=== PATIENT | female | born 1985 | race Hispanic/Latino ===

== ENCOUNTER 2018-03-17 12:46 | Emergency (ER) | payer OTHER, SELFPAY ==
[2018-03-17 14:27] LABS: Absolute Lymphocytes (CBC) 1.9 K/uL (0.7-4.9); Absolute Monocytes 0.6 K/uL (0.1-1.3); Basophils % 1.5 % (0-1.3); Eosinophils % 1.5 % (0-4.4); Hematocrit 39.9 % (36.0-45.0); Lymphocytes % 21.3 % (15.3-44.8); MCH 26.1 pg (27.0-35.0); MCV 80.4 fL (80-100); MPV 8.6 fL (7.6-11.3); Monocytes % 6.7 % (3.3-12.3); RBC Red Blood Cell Count 4.97 M/uL (3.86-4.86)
[2018-03-17 14:32] LABS: Urine Blood NEGATIVE (NEG); Urine Glucose NEGATIVE (NEG); Urine Protein TRACE (NEG)
[2018-03-17 14:33] LABS: Urine Bacteria 20-50 /HPF (<20); Urine RBC <5 /HPF (NONE SEEN)
[2018-03-17 14:34] LABS: Urine Culture Reflex Order NOT NEEDED
[2018-03-17 14:35] LABS: Bicarbonate 28 mEq/L (21-31); Glucose Level 94 mg/dL (65-120); Potassium 3.5 mEq/L (3.6-5.0); Sodium Level 136 mEq/L (135-145)
[2018-03-17 14:41] LABS: ALT/SGPT 44 IU/L (10-60); AST/SGOT 27 IU/L (10-42); Albumin 4.3 g/dL (3.2-5.5); Alkaline Phosphatase 91 IU/L (42-121); Amylase Level 69 U/L (28-100); BUN Blood Urea Nitrogen 9 mg/dL (6-20); Bilirubin Direct 0.1 mg/dL (0-0.2); Bilirubin Total 0.7 mg/dL (0.3-1.2); Protein, Total 7.8 g/dL (6.0-8.3)
[2018-03-17 14:50] LABS: Lipase 18 U/L (22-51)
[2018-03-17] MEDS ORDERED: NA CHLORIDE 0.9% 1,000 ML ONE (15:25)
--- NOTE | 2018-03-17 16:56 | RAD REPORT ---
EXAM DESCRIPTION: US - Transvaginal OB - 03/17/2018 4:35 pm CLINICAL HISTORY: Pelvic pain. COMPARISON: None. FINDINGS: The uterus is normal in size. Two small cystic areas are seen in the fundal endometrium co mpatible with twin gestational sacs. Mean sac diameter yields a gestational age of approximately 5 we eks 0 days. No embryonic components seen. Both ovaries are normal in size, shape and echotexture. The right ovary measures 3.7 x 2.1 x 2.0 cm. The left ovary measures 3.1 x 2.3 x 1.5 cm. No ovarian or parovarian lesions. No adnexal masses. Normal Doppler blood flow was demonstrated to both ovaries. IMPRESSION: Findings of early twin are present. No embryonic components yet visible.Advise followup sonogram in 12-14 days.
--- NOTE | 2018-03-17 16:57 | EDPHYS ---
Physician Documentation [facility] Name: Valarie Mace Age: 32 yrs Sex: Female : 1985 Arrival Date: 03/17/2018 Time: 12:50 Bed 30 Private MD: ED Physician Nathan Viera HPI: 03/17 13:15 This 32 yrs old Female presents to ER via Ambulatory with complaints of cp Nausea/Vomiting, Abdominal Pain. 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 - Social history:: Smoking status: Patient/guardian denies using tobacco. - Ebola Screening: : Patient negative for fever greater than or equal to 101.5 degrees Fahrenheit, and additional compatible Ebola Virus Disease symptoms. ROS: 13:22 Constitutional: Negative for body aches, chills, fever, poor PO intake. cp 13:22 Eyes: Negative for injury, pain, redness, and discharge. cp 13:22 ENT: Negative for drainage from ear(s), ear pain, sore throat, difficulty swallowing, difficulty handling secretions. 13:22 Neck: Negative for pain with movement, pain at rest, stiffness. 13:22 Cardiovascular: Negative for chest pain, edema, palpitations. 13:22 Respiratory: Negative for cough, shortness of breath, wheezing. 13:22 Abdomen/GI: Positive for abdominal pain, nausea, vomiting, Negative for diarrhea, constipation, anorexia, black/tarry stool, rectal bleeding. 13:22 Back: Negative for pain at rest, pain with movement, radiated pain. 13:22 : Negative for urinary symptoms, vaginal bleeding, vaginal discharge. 13:22 Skin: Negative for cellulitis, rash. 13:22 Neuro: Positive for dizziness, headache, Negative for altered mental status, syncope, near syncope, weakness. 13:22 All other systems are negative. Exam: 13:25 Constitutional: The patient appears in no acute distress, alert, awake, non-toxic, well cp developed, well nourished. 13:25 Head/Face: Normocephalic, atraumatic. Eyes: Pupils equal round and reactive to light, cp extra-ocular motions intact. Lids and lashes normal. Conjunctiva and sclera are non-icteric and not injected. Cornea within normal limits. Periorbital areas with no swelling, redness, or edema. ENT: Nares patent. No nasal discharge, no septal abnormalities noted. Tympanic membranes are normal and external auditory canals are clear. Oropharynx with no redness, swelling, or masses, exudates, or evidence of obstruction, uvula midline. Mucous membranes moist. Neck: Trachea midline, no thyromegaly or masses palpated, and no cervical lymphadenopathy. Supple, full range of motion without nuchal rigidity, or vertebral point tenderness. No Meningismus. Chest/axilla: Normal chest wall appearance and motion. Nontender with no deformity. No lesions are appreciated. 13:25 Cardiovascular: Rate: tachycardic, Rhythm: regular, Pulses: Pulses are 2+ in right radial artery and left radial artery. Edema: is not appreciated, JVD: is not appreciated. 13:25 Respiratory: the patient does not display signs of respiratory distress, Respirations: normal, no use of accessory muscles, no retractions, no splinting, no tachypnea, labored breathing, is not present, Breath sounds: are clear throughout, no decreased breath sounds, no stridor, no wheezing. 13:25 Abdomen/GI: Inspection: abdomen appears normal, Bowel sounds: active, all quadrants, Palpation: soft, in all quadrants, mild abdominal tenderness, in the right lower quadrant, rebound tenderness, is not appreciated, voluntary guarding, is not appreciated, involuntary guarding, is not appreciated. 13:25 Back: pain, is absent, ROM is normal. 13:25 Skin: cellulitis, is not appreciated, no rash present. 13:25 Neuro: Orientation: to person, place \T\ time. Mentation: lucid, able to follow commands, Cerebellar function: is grossly normal, Motor: moves all fours, strength is normal, Sensation: no obvious gross deficits, Gait: is steady, at a normal pace, without difficulty. Vital Signs: 12:57 BP 144 / 84; Pulse 110; Resp 19; Temp 97.9; Pulse Ox 99% on R/A; Weight 97.52 kg; aj Height 5 ft. 4 in. (162.56 cm); 15:30 BP 136 / 77; Pulse 77; Resp 17; Temp 97.5; Pulse Ox 99% ; Pain 7/10; rs2 17:29 BP 139 / 81; Pulse 89; Resp 16; Temp 97.2; Pulse Ox 100% ; Pain 0/10; rs2 12:57 Body Mass Index 36.90 (97.52 kg, 162.56 cm) aj MDM: 13:09 Patient medically screened. 16:55 Data reviewed: vital signs, nurses notes, lab test result(s), radiologic studies, cp ultrasound. 16:55 Counseling: I had a detailed discussion with the patient and/or guardian regarding: the cp historical points, exam findings, and any diagnostic results supporting the discharge/admit diagnosis, lab results, radiology results, the need for outpatient follow up, an OB/Gyne specialist, to return to the emergency department if symptoms worsen or persist or if there are any questions or concerns that arise at home. 03/17 13:31 Order name: Amylase, Serum; Complete Time: 14:57 03/17 13:31 Order name: Basic Metabolic Panel; Complete Time: 14:57 03/17 14:57 Interpretation: Normal except: K 3.5. 03/17 13:31 Order name: CBC with Diff; Complete Time: 14:57 03/17 14:57 Interpretation: Normal except: RBC 4.97; MCV 80.4; MCH 26.1; BASO% 1.5. 03/17 13:31 Order name: Creatinine for Radiology; Complete Time: 14:57 03/17 13:31 Order name: Hepatic Function; Complete Time: 14:57 03/17 15:24 Interpretation: Reviewed. 03/17 13:31 Order name: Lipase; Complete Time: 14:57 03/17 13:31 Order name: Urine Microscopic Only; Complete Time: 14:57 03/17 14:57 Interpretation: Normal except: UWBC 10-20; UBACT 20-50; SQEPI 20-50. 03/17 14:16 Order name: Beta hcg; Complete Time: 15:51 03/17 15:52 Interpretation: HCGQ 2703.0; Reviewed. 03/17 14:24 Order name: Urine Dipstick--Ancillary (enter results); Complete Time: 14:57 em1 05/23 14:24 Order name: Urine --Ancillary (enter results); Complete Time: 14:57 em1 03/17 15:52 Order name: US Transvaginal Ob; Complete Time: 16:58 cp 03/17 13:11 Order name: Urine Test (obtain specimen); Complete Time: 14:42 cp 03/17 13:11 Order name: Urine Dipstick-Ancillary (obtain specimen); Complete Time: 14:42 cp 03/17 13:31 Order name: IV Saline Lock; Complete Time: 14:42 cp 03/17 13:31 Order name: Labs collected and sent; Complete Time: 14:42 cp Administered Medications: 14:18 CANCELLED (Physician Discretion): Meclizine 25 mg PO once cp 14:42 Drug: Zofran 4 mg Route: IVP; Site: right antecubital; rs2 15:31 Follow up: Response: No adverse reaction; Nausea is decreased rs2 15:29 Drug: NS 0.9% 1000 ml Route: IV; Rate: 1 bolus; Site: right antecubital; rs2 17:14 Follow up: IV Status: Completed infusion; IV Intake: 1000ml rs2 Disposition: 03/17/18 16:56 Discharged to Home. Impression: related conditions, unspecified, first trimester, Nausea and vomiting, Dizziness, Lower abdominal pain, unspecified. - Condition is Stable. - Discharge Instructions: Abdominal Pain During , Nausea and Vomiting. - Prescriptions for Diclegis 10- 10 mg Oral tablet,delayed release (DR/EC) - take 1 tablet by ORAL route as directed As needed prior to meals and 2 tablets at bedtime; 30 tablet. Vitamin 27- 0.8 mg Oral Tablet - take 1 tablet by ORAL route once daily; 60 tablet. - Medication Reconciliation Form, Thank You Letter, Antibiotic Education, Prescription Opioid Use form. - Follow up: Jyothi Oshea MD; When: 1 week; Reason: Recheck today's complaints. - Problem is new. - Symptoms have improved. Addendum: 03/23/2018 19:24 Co-signature as Attending Physician, Nathan Viera MD. r n Signatures: Dispatcher [employer] EDTaylor Grande RN RN aj Nieto, Roman, MD MD rn Page, Corey, PA PA cp Seth, Rhonda rs2 Corrections: (The following items were deleted from the chart) 03/17 14:18 13:31 Meclizine 25 mg PO once ordered. cp cp 17:31 16:56 03/17/2018 16:56 Discharged to Home. Impression: related conditions, rs2 unspecified, first trimester; Nausea and vomiting; Dizziness; Lower abdominal pain, unspecified. Condition is Stable. Forms are Medication Reconciliation Form, Thank You Letter, Antibiotic Education, Prescription Opioid Use. Follow up: Jyothi Oshea; When: 1 week; Reason: Recheck today's complaints. Problem is new. Symptoms have improved. cp
--- NOTE | 2018-03-17 16:57 | ER ---
Nurse's Notes [facility] Name: Valarie Mace Age: 32 yrs Sex: Female : 1985 Arrival Date: 03/17/2018 Time: 12:50 Bed 30 Private MD: Diagnosis: related conditions, unspecified, first trimester;Nausea and vomiting;Dizziness;Lower abdominal pain, unspecified Presentation: 03/17 12:56 Presenting complaint: Patient states: Nausea with a few episodes of vomiting with aj migraine headache that started a few days ago. Patient reports negative test. Transition of care: patient was not received from another setting of care. Onset of symptoms was March 17, 2018. Care prior to arrival: None. 12:56 Method Of Arrival: Ambulatory aj 12:56 Acuity: MIRA 3 aj 13:53 Risk Assessment: Do you want to hurt yourself or someone else? Patient reports no rs2 desire to harm self or others. Initial Sepsis Screen: Does the patient meet any 2 criteria? No. Patient's initial sepsis screen is negative. Does the patient have a suspected source of infection? No. Patient's initial sepsis screen is negative. Triage Assessment: 12:57 General: Appears in no apparent distress. comfortable, Behavior is calm, cooperative, aj appropriate for age. Pain: Complains of pain in right inguinal area. Neuro: Level of Consciousness is awake, alert, obeys commands, Oriented to person, place, time, situation, Appropriate for age. Respiratory: Airway is patent Respiratory effort is even, unlabored, Respiratory pattern is regular, symmetrical. GI: Reports nausea. GI: Reports. : Reports pain in right in suprapubic area. Derm: Skin is intact, is healthy with good turgor, Skin is pink, warm \T\ dry. normal. 12:59 Neuro: Reports headache. 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 - Social history:: Smoking status: Patient/guardian denies using tobacco. - Ebola Screening: : Patient negative for fever greater than or equal to 101.5 degrees Fahrenheit, and additional compatible Ebola Virus Disease symptoms. Screenin:48 Abuse screen: Denies threats or abuse. Nutritional screening: No deficits noted. rs2 Tuberculosis screening: No symptoms or risk factors identified. Fall Risk None identified. Assessment: 13:48 General: Appears in no apparent distress. obese, well groomed, Behavior is calm, rs2 cooperative, appropriate for age. Pain: Complains of pain in right lower quadrant. Neuro: No deficits noted. Cardiovascular: No deficits noted. Respiratory: No deficits noted. Reports. GI: Abdomen is tender to palpation in right lower quadrant Reports nausea, Pt reports RLQ pressure intermittently for several weeks with nausea for 1 week and occasional vomiting. Pt denies vomiting today. Pt denies dysuria. Pt reports normal BM today. : No deficits noted. EENT: Reports nasal congestion. 15:30 Reassessment: No changes from previously documented assessment. Patient states feeling rs2 better. Patient states symptoms have improved. Vital Signs: 12:57 BP 144 / 84; Pulse 110; Resp 19; Temp 97.9; Pulse Ox 99% on R/A; Weight 97.52 kg; aj Height 5 ft. 4 in. (162.56 cm); 15:30 BP 136 / 77; Pulse 77; Resp 17; Temp 97.5; Pulse Ox 99% ; Pain 7/10; rs2 17:29 BP 139 / 81; Pulse 89; Resp 16; Temp 97.2; Pulse Ox 100% ; Pain 0/10; rs2 12:57 Body Mass Index 36.90 (97.52 kg, 162.56 cm) ED Course: 12:50 Patient arrived in ED. sb2 12:57 Triage completed. aj 12:57 Arm band placed on left wrist. Patient placed in an exam room. aj 13:09 Jose Rao PA is PHCP. cp 13:09 Nathan Viera MD is Attending Physician. cp 13:47 Jazmyn Curry is Primary Nurse. rs2 13:48 Patient has correct armband on for positive identification. Bed in low position. Call rs2 light in reach. Side rails up X 1. Door closed. Noise minimized. 16:14 Patient taken to ultrasound. lc3 16:27 US Transvaginal Ob In Process Unspecified. EDMS 16:54 Jyothi Oshea MD is Referral Physician. cp 17:14 No provider procedures requiring assistance completed. Inserted saline lock: 20 gauge rs2 in right antecubital area, using aseptic technique. 17:14 IV discontinued, intact, bleeding controlled, No redness/swelling at site. Pressure rs2 dressing applied. Administered Medications: 14:18 CANCELLED (Physician Discretion): Meclizine 25 mg PO once cp 14:42 Drug: Zofran 4 mg Route: IVP; Site: right antecubital; rs2 15:31 Follow up: Response: No adverse reaction; Nausea is decreased rs2 15:29 Drug: NS 0.9% 1000 ml Route: IV; Rate: 1 bolus; Site: right antecubital; rs2 17:14 Follow up: IV Status: Completed infusion; IV Intake: 1000ml rs2 Intake: 17:14 IV: 1000ml; Total: 1000ml. rs2 Outcome: 16:56 Discharge ordered by MD. cp 17:30 Discharged to home ambulatory, with friend. rs2 17:30 Condition: improved 17:30 Discharge instructions given to patient, Instructed on discharge instructions, follow up and referral plans. Demonstrated understanding of instructions, follow-up care, medications, Prescriptions given X 2. 17:31 Patient left the ED. rs2 Signatures: Dispatcher [employer] EDMS Taylor Alex RN RN aj Page, Corey, PA PA Tito Brannon Rhonda rs2 Nataly Kapoor sb2 Corrections: (The following items were deleted from the chart) 12:59 12:56 Presenting complaint: Patient states: Nausea with a few episodes of vomiting. aj Patient reports negative test meghann
== END 2018-03-17 17:31 | disposition home or self-care (01) ==
LOC: ER 12:46
DX: O26.91 Pregnancy related conditions, unspecified, first trimester (principal)
CPT/HCPCS: 36415; 76817; 80048; 80076; 81003; 81015; 81025; 82150; 83690; 84702; 85025; 96361; 96374; 99284; J7030

== ENCOUNTER 2018-05-26 17:29 | Emergency (ER) | payer OTHER ==
[2018-05-26 18:37] LABS: Urine Blood NEGATIVE (NEG); Urine Glucose NEGATIVE (NEG); Urine Protein 1+ (NEG)
[2018-05-26 18:40] LABS: Calcium Oxalate Crystals- Ur FEW (NONE SEEN); Urine Bacteria 20-50 /HPF (<20); Urine Culture Reflex Order NOT NEEDED; Urine RBC <5 /HPF (NONE SEEN)
--- NOTE | 2018-05-26 18:53 | RAD REPORT ---
EXAM DESCRIPTION: US - OB Limited - 05/26/2018 6:21 pm CLINICAL HISTORY: with abdominal pain COMPARISON: March 2018 FINDINGS: Limited sonographic evaluation was performed to assess viability, placenta and amnio tic fluid The cervix measures 3.7 centimeters. The amniotic fluid is within normal limits. The placenta is anterior. A subchorionic/retroplacental bleed is not seen. Cardiac activity 143 beats per minute. Evaluation of the maternal right adnexae is unremarkable. The right ovary was not seen. A tubular structure is present within the maternal left adnexa. IMPRESSION: A tubular structure within the maternal left at adnexa may represent a dilated fallopian tube or ureter. Otherwise unremarkable limited OB ultrasound as described above
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
--- NOTE | 2018-05-26 19:20 | EDPHYS ---
Physician Documentation [facility] Name: Valarie Mace Age: 32 yrs Sex: Female : 1985 Arrival Date: 05/26/2018 Time: 17:32 Bed 26 Private MD: CLAUDIA APONTE ED Physician Jose Matthews HPI: 05/26 18:29 This 32 yrs old Female presents to ER via Ambulatory with complaints of snw Abdominal Pain. 18:29 The patient presents with abdominal pain left lower quad, left groin. Onset: The snw symptoms/episode began/occurred suddenly. The symptoms do not radiate. Associated signs and symptoms: none. The symptoms are described as shooting. Severity of pain: At its worst the pain was moderate severe. The patient has not experienced similar symptoms in the past. appt with Ob next week. 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 - Social history:: Smoking status: Patient/guardian denies using tobacco. - Ebola Screening: : Patient denies exposure to infectious person Patient denies travel to an Ebola-affected area in the 21 days before illness onset. ROS: 17:57 Constitutional: Negative for fever, chills, and weight loss, Eyes: Negative for injury, snw pain, redness, and discharge, ENT: Negative for injury, pain, and discharge, Neck: Negative for injury, pain, and swelling, Cardiovascular: Negative for chest pain, palpitations, and edema, Respiratory: Negative for shortness of breath, cough, wheezing, and pleuritic chest pain, Back: Negative for injury and pain, : Negative for injury, bleeding, discharge, and swelling, MS/Extremity: Negative for injury and deformity, Skin: Negative for injury, rash, and discoloration, Neuro: Negative for headache, weakness, numbness, tingling, and seizure. 17:57 Abdomen/GI: Positive for lower left groin pain that felt like a kick in the groin with then constant pain, concerned second to state. Exam: 17:57 Constitutional: This is a well developed, well nourished patient who is awake, alert, snw and in no acute distress. Head/Face: Normocephalic, atraumatic. Eyes: Pupils equal round and reactive to light, extra-ocular motions intact. Lids and lashes normal. Conjunctiva and sclera are non-icteric and not injected. Cornea within normal limits. Periorbital areas with no swelling, redness, or edema. ENT: Nares patent. No nasal discharge, no septal abnormalities noted. Tympanic membranes are normal and external auditory canals are clear. Oropharynx with no redness, swelling, or masses, exudates, or evidence of obstruction, uvula midline. Mucous membranes moist. Neck: Trachea midline, no thyromegaly or masses palpated, and no cervical lymphadenopathy. Supple, full range of motion without nuchal rigidity, or vertebral point tenderness. No Meningismus. Chest/axilla: Normal chest wall appearance and motion. Nontender with no deformity. No lesions are appreciated. Cardiovascular: Regular rate and rhythm with a normal S1 and S2. No gallops, murmurs, or rubs. Normal PMI, no JVD. No pulse deficits. Respiratory: Lungs have equal breath sounds bilaterally, clear to auscultation and percussion. No rales, rhonchi or wheezes noted. No increased work of breathing, no retractions or nasal flaring. Abdomen/GI: Soft, non-tender, with normal bowel sounds. No distension or tympany. No guarding or rebound. No evidence of tenderness throughout. Back: No spinal tenderness. No costovertebral tenderness. Full range of motion. Skin: Warm, dry with normal turgor. Normal color with no rashes, no lesions, and no evidence of cellulitis. Neuro: Awake and alert, GCS 15, oriented to person, place, time, and situation. Cranial nerves II-XII grossly intact. Motor strength 5/5 in all extremities. Sensory grossly intact. Cerebellar exam normal. Normal gait. Psych: Awake, alert, with orientation to person, place and time. Behavior, mood, and affect are within normal limits. 17:57 Musculoskeletal/extremity: left groin pain that started while standing, no diff with range of motion. Vital Signs: 17:41 BP 133 / 90; Pulse 103; Resp 18; Pulse Ox 97% on R/A; Weight 102.06 kg (R); Height 5 tw2 ft. 4 in. (162.56 cm); Pain 6/10; 17:42 Temp 98.7(O); tw2 18:09 BP 114 / 76; Pulse 105; Resp 17; Pulse Ox 100% on R/A; tw2 18:30 BP 116 / 69; Pulse 98; Resp 17; Pulse Ox 99% on R/A; tw2 19:30 BP 108 / 71; Pulse 88; Resp 16; Pulse Ox 100% on R/A; Pain 4/10; lp1 17:41 Body Mass Index 38.62 (102.06 kg, 162.56 cm) tw2 MDM: 17:41 Patient medically screened. snw 19:22 Data reviewed: vital signs, nurses notes. Data interpreted: Pulse oximetry: on room air snw is 99 %. Interpretation: normal. Counseling: I had a detailed discussion with the patient and/or guardian regarding: the historical points, exam findings, and any diagnostic results supporting the discharge/admit diagnosis, lab results, radiology results. 05/26 17:44 Order name: Urine Culture snw 05/26 17:44 Order name: Urine Microscopic Only; Complete Time: 18:51 snw 05/26 17:44 Order name: Urine Dipstick-Ancillary (obtain specimen); Complete Time: 17:54 snw 05/26 17:44 Order name: US OB Limited; Complete Time: 18:58 snw 05/26 18:08 Order name: Urine Dipstick--Ancillary (enter results); Complete Time: 18:51 eb Administered Medications: No medications were administered Disposition: 05/27 06:48 Co-signature as Attending Physician, Jose Matthews MD I agree with the assessment and elsa plan of care. Disposition: 05/26/18 19:20 Discharged to Home. Impression: state, Lower abdominal pain, unspecified. - Condition is Stable. - Discharge Instructions: Abdominal Pain During , Pelvic Rest, Second Trimester of , [id number]. - Work release form, Medication Reconciliation Form, Thank You Letter, Antibiotic Education, Prescription Opioid Use form. - Follow up: Emergency Department; When: As needed; Reason: Worsening of condition. Follow up: Private Physician; When: 2 - 3 days; Reason: Recheck today's complaints, Continuance of care. Signatures: Dispatcher [employer] EDJose Healy MD MD cha Therrien, Shelly, CARD DOFFER-C CARD DOFFER-Csnw Azra Vieira, RN RN lp1 Vivien Navarro RN RN tw2 Corrections: (The following items were deleted from the chart) 05/26 19:45 19:20 05/26/2018 19:20 Discharged to Home. Impression: state; Lower abdominal lp1 pain, unspecified. Condition is Stable. Forms are Medication Reconciliation Form, Thank You Letter, Antibiotic Education, Prescription Opioid Use. Follow up: Emergency Department; When: As needed; Reason: Worsening of condition. Follow up: Private Physician; When: 2 - 3 days; Reason: Recheck today's complaints, Continuance of care. snw
== END 2018-05-26 19:45 | disposition home or self-care (01) ==
LOC: ER 17:29
DX: R10.30 Lower abdominal pain, unspecified (principal); Z88.0 Allergy status to penicillin; Z88.1 Allergy status to other antibiotic agents
CPT/HCPCS: 76815; 81003; 81015; 87086; 87088; 99284

== ENCOUNTER 2019-05-17 17:01 | Inpatient (IN) | payer MEDICAID, OTHER, SELFPAY ==
--- OUTSIDE RECORDS SUMMARY | 2019-05-17 17:07 | XMS REPORT ---
:1985 [facility] Address [address] [place] [address] Care Team Providers Name Role Phone Unavailable Unavailable Unavailable Problems This patient has no known problems. Allergies, Adverse Reactions, Alerts This patient has no known allergies or adverse reactions. Medications This patient has no known medications.
[2019-05-17 17:48] LABS: Absolute Lymphocytes (CBC) 1.3 K/uL (0.7-4.9); Basophils % 0.6 % (0-1.3); Hematocrit 49.3 % (36.0-45.0); MPV 10.4 fL (7.6-11.3); RBC Red Blood Cell Count 5.49 M/uL (3.86-4.86)
[2019-05-17 17:59] LABS: Urine Blood 1+ (NEG); Urine Glucose 2+ (NEG); Urine Protein 2+ (NEG)
[2019-05-17] MEDS ORDERED: INSULIN -REGULAR HUMAN 50 UNIT/0.5 ML ML ONE ×2 (18:01→19:58)
[2019-05-17] MEDS ORDERED: NA CHLORIDE 0.9% 1,000 ML ONE ×3 (18:01→19:19)
[2019-05-17 18:06] LABS: ALT/SGPT 40 U/L (12-78); AST/SGOT 12 U/L (15-37); Albumin 4.3 g/dL (3.4-5.0); Alkaline Phosphatase 130 U/L (45-117); BUN Blood Urea Nitrogen 15 mg/dL (7-18); Bicarbonate 21 mmol/L (21-32); Bilirubin Direct 0.2 mg/dL (0-0.2); Bilirubin Total 0.9 mg/dL (0.2-1.0); Lipase 173 U/L (73-393); Magnesium 2.7 mg/dL (1.8-2.4); Potassium 3.7 mmol/L (3.5-5.1); Protein, Total 8.1 g/dL (6.4-8.2); Sodium Level 134 mmol/L (136-145)
[2019-05-17 18:13] LABS: Glucose Level 627 mg/dL (74-106)
[2019-05-17 19:01] LABS: Urine Bacteria <20 /HPF (<20); Urine Culture Reflex Order NOT NEEDED; Urine RBC <5 /HPF (NONE SEEN)
--- NOTE | 2019-05-17 19:39 | ER ---
Nurse's Notes [facility] Name: Valarie Mace Age: 33 yrs Sex: Female : 1985 Arrival Date: 05/17/2019 Time: 17:13 Bed 17 Private MD: Diagnosis: Diabetes mellitus due to underlying condition with ketoacidosis Presentation: 05/17 17:15 Presenting complaint: Patient states: Frequent urination, dry mouth, increased thirst, aj for 1 week. Patient denies HX of diabetes. Ketones noted on breath. Transition of care: patient was not received from another setting of care. Onset of symptoms was May 10, 2019. Risk Assessment: Do you want to hurt yourself or someone else? Patient reports no desire to harm self or others. Initial Sepsis Screen: Does the patient meet any 2 criteria? No. Patient's initial sepsis screen is negative. Does the patient have a suspected source of infection? No. Patient's initial sepsis screen is negative. Care prior to arrival: None. 17:15 Method Of Arrival: Ambulatory 17:15 Acuity: MIRA 3 aj 19:00 Acuity: MIRA 2 iw Triage Assessment: 17:17 General: Appears in no apparent distress. uncomfortable, Behavior is calm, cooperative, aj appropriate for age. General: Smells of ketones. Pain: Denies pain. Neuro: Level of Consciousness is awake, alert, obeys commands, Oriented to person, place, time, situation, Appropriate for age. Respiratory: Airway is patent Respiratory effort is even, unlabored, Respiratory pattern is regular, symmetrical. GI: Abdomen is obese, Reports nausea. : Reports urinary frequency. Derm: Skin is intact, is healthy with good turgor, Skin is pink, warm \T\ dry. normal. 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 - Social history:: Smoking status: Patient/guardian denies using tobacco. - Ebola Screening: : Patient negative for fever greater than or equal to 101.5 degrees Fahrenheit, and additional compatible Ebola Virus Disease symptoms Patient denies exposure to infectious person Patient denies travel to an Ebola-affected area in the 21 days before illness onset No symptoms or risks identified at this time. Screenin:15 Abuse screen: Denies threats or abuse. Nutritional screening: No deficits noted. ae4 Tuberculosis screening: No symptoms or risk factors identified. Fall Risk None identified. Assessment: 17:18 General: Appears uncomfortable, obese, Behavior is cooperative, appropriate for age, ae4 anxious, restless. General: Smells of ketones, Patient reports excessive thirst. . Pain: Denies pain. Neuro: Level of Consciousness is awake, alert, obeys commands, Oriented to person, place, time, situation, Appropriate for age. Cardiovascular: Heart tones S1 S2 warm and mildly diaphoretic. Rhythm is regular. Respiratory: Airway is patent Respiratory effort is even, unlabored, shallow, Respiratory pattern is regular, symmetrical, Breath sounds are clear bilaterally. GI: Abdomen is round obese, Bowel sounds present X 4 quads. : No signs and/or symptoms were reported regarding the genitourinary system. : Reports Increased frequency of urination. EENT: wears glasses. Derm: Skin is pale. Musculoskeletal: Reports Generalized weakness. 17:41 Reassessment: Respiratory therapist at bedside obtaining ABG. ae4 19:34 Reassessment: Patient appears in no apparent distress at this time. Patient and/or ae4 family updated on plan of care and expected duration. Pain level reassessed. Patient denies pain at this time. Patient states feeling better. Patient states symptoms have improved. 20:00 Reassessment: Patient appears in no apparent distress at this time. Patient and/or jb4 family updated on plan of care and expected duration. Pain level reassessed. Patient is alert, oriented x 3, equal unlabored respirations, skin warm/dry/pink. report called to RICHARD Pate. Vital Signs: 17:17 BP 149 / 103; Pulse 123; Resp 18; Temp 97.4; Pulse Ox 99% on R/A; Weight 108.86 kg; aj Height 5 ft. 4 in. (162.56 cm); 18:21 BP 137 / 104; Pulse 128; Resp 15; Pulse Ox 98% on R/A; ae4 20:00 BP 141 / 98; Pulse 110; Resp 19; Temp 98.4(O); Pulse Ox 100% on R/A; jb4 17:17 Body Mass Index 41.20 (108.86 kg, 162.56 cm) ED Course: 17:13 Patient arrived in ED. as 17:16 Triage completed. aj 17:17 Arm band placed on left wrist. aj 17:19 Jose Rao PA is PHCP. cp 17:19 Jose Matthews MD is Attending Physician. cp 17:19 Dmitry Godfrey, RICHARD is Primary Nurse. ae4 17:45 Patient has correct armband on for positive identification. Placed in gown. Bed in low mh5 position. Call light in reach. Side rails up X 1. Warm blanket given. sewer pipe offbearer on. Pulse ox on. NIBP on. 17:45 Urine collected: clean catch specimen, clear. mh5 17:47 Ketone, Serum Sent. mh5 17:47 Magnesium Sent. mh5 17:47 Basic Metabolic Panel Sent. mh5 17:47 CBC with Diff Sent. mh5 17:47 Creatinine for Radiology Sent. mh5 17:47 Hepatic Function Sent. mh5 17:48 Lipase Sent. mh5 17:48 Urine Culture Sent. mh5 17:48 Urine Microscopic Only Sent. mh5 19:38 Jay Reed DO is Hospitalizing Provider. cp 19:52 Inserted saline lock: 20 gauge in left antecubital area, using aseptic technique. ae4 20:35 No provider procedures requiring assistance completed. Patient admitted, IV remains in jb4 place. Administered Medications: 17:45 Drug: NS 0.9% 1000 ml Route: IV; Rate: 1 bolus; Site: right antecubital; ae4 19:15 Follow up: IV Status: Completed infusion; IV Intake: 1000ml jb4 17:45 Drug: Insulin Regular Human 10 units {Co-Signature: rb1 (Cherie Chavarria RN).} Route: ae4 IVP; Site: right antecubital; 19:02 Follow up: Response: Temperature is decreased; FSBS 399 ae4 18:35 Drug: NS 0.9% 1000 ml Route: IV; Rate: 1 bolus; Site: right antecubital; ae4 20:35 Follow up: IV Status: Completed infusion; IV Intake: 1000ml jb4 19:55 Drug: NS 0.9% 1000 ml Route: IV; Rate: 1 bolus; Site: left antecubital; jb4 20:35 Follow up: Response: No adverse reaction; IV Status: Infusion continued upon admission; jb4 IV Intake: 500ml 19:55 Drug: Insulin Drip - (Insulin Regular Human 100 units, NS 0.9% 100 ml) {Co-Signature: jb4 ae4 (Dmitry Godfrey RN).} Route: IV; Rate: 10 units/hr; Site: left antecubital; 20:35 Follow up: Response: No adverse reaction; IV Status: Infusion continued upon admission jb4 Point of Care Testing: Blood Glucose: 17:22 Blood Glucose: High (>450 mg/dL); iw 18:42 Blood Glucose: 399 mg/dL; ae4 19:57 Blood Glucose: 363 mg/dL; jb4 17:22 Nurse notified of high sugar reading and need for lab follow up iw Ranges: Intake: 19:15 IV: 1000ml; Total: 1000ml. jb4 20:35 IV: 500ml; Total: 1500ml. jb4 20:35 IV: 1000ml; Total: 2500ml. jb4 Outcome: 19:39 Decision to Hospitalize by Provider. cp 20:35 Admitted to ICU accompanied by nurse, accompanied by tech, via stretcher, room 8, on jb4 monitor, with chart, Report called to RICHARD Pate 20:35 Condition: improved 20:35 Discharge instructions given to patient, family, Instructed on the need for admit, Demonstrated understanding of instructions. 20:47 Patient left the ED. ak1 Signatures: Taylor Alex RN RN aj Martinez, Amelia as Williams, Irene, RN RN iw Krenek, Amber, RN RN ak1 Jose Rao PA PA cp Bryson, James, RN RN jb4 Martinez, Maria mh5 Elliott, Andrea, RN RN ae4 Cherie Godfrey RN, ae4
--- NOTE | 2019-05-17 19:40 | EDPHYS ---
Physician Documentation [facility] Name: Valarie Mace Age: 33 yrs Sex: Female : 1985 Arrival Date: 05/17/2019 Time: 17:13 Bed 17 Private MD: ED Physician Jose Matthews HPI: 05/17 17:30 This 33 yrs old Female presents to ER via Ambulatory with complaints of cp Nausea/Vomiting, Dizziness. 17:30 The patient presents to the emergency department with nausea, that is mild. Onset: The cp symptoms/episode began/occurred 1 week(s) ago. Associated signs and symptoms: Pertinent positives: dizziness, Pertinent negatives: abdominal pain, diarrhea, fever, vomiting. Severity of symptoms: in the emergency department the symptoms are unchanged despite home interventions. 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 - Social history:: Smoking status: Patient/guardian denies using tobacco. - Ebola Screening: : Patient negative for fever greater than or equal to 101.5 degrees Fahrenheit, and additional compatible Ebola Virus Disease symptoms Patient denies exposure to infectious person Patient denies travel to an Ebola-affected area in the 21 days before illness onset No symptoms or risks identified at this time. ROS: 17:35 Constitutional: Negative for body aches, chills, fever, poor PO intake. cp 17:35 Eyes: Negative for injury, pain, redness, and discharge. cp 17:35 ENT: Negative for drainage from ear(s), ear pain, sore throat, difficulty swallowing, difficulty handling secretions. 17:35 Cardiovascular: Negative for chest pain, palpitations. 17:35 Respiratory: Negative for cough, shortness of breath, wheezing. 17:35 Abdomen/GI: Positive for nausea, Negative for abdominal pain, diarrhea, constipation, black/tarry stool, rectal bleeding, active vomiting. 17:35 Back: Negative for pain at rest, pain with movement. 17:35 : Positive for urinary frequency, Negative for flank pain, burning with urination, difficulty urinating. 17:35 Neuro: Positive for dizziness, Negative for altered mental status, weakness. 17:35 All other systems are negative. Exam: 17:45 Constitutional: The patient appears in no acute distress, alert, awake, cp non-diaphoretic, non-toxic, well developed, well nourished. 17:45 Head/Face: Normocephalic, atraumatic. Eyes: Pupils equal round and reactive to light, cp extra-ocular motions intact. Lids and lashes normal. Conjunctiva and sclera are non-icteric and not injected. Cornea within normal limits. Periorbital areas with no swelling, redness, or edema. ENT: Nares patent. No nasal discharge, no septal abnormalities noted. Tympanic membranes are normal and external auditory canals are clear. Oropharynx with no redness, swelling, or masses, exudates, or evidence of obstruction, uvula midline. Mucous membranes moist. Chest/axilla: Normal chest wall appearance and motion. Nontender with no deformity. No lesions are appreciated. 17:45 Cardiovascular: Rate: tachycardic, Rhythm: regular, Heart sounds: murmur, not appreciated, Edema: is not appreciated, JVD: is not appreciated. 17:45 Respiratory: the patient does not display signs of respiratory distress, Respirations: normal, no use of accessory muscles, no retractions, no splinting, no tachypnea, labored breathing, is not present, Breath sounds: are clear throughout, no decreased breath sounds, no stridor, no wheezing. 17:45 Abdomen/GI: Inspection: obese Palpation: abdomen is soft and non-tender, in all quadrants. 17:45 Back: pain, is absent, ROM is normal. 17:45 Skin: no rash present. 17:45 Neuro: Orientation: to person, place \T\ time. Mentation: is normal, Cerebellar function: is grossly normal, Motor: moves all fours, strength is normal, Sensation: is normal. 18:00 ECG was reviewed by the Attending Physician. cp Vital Signs: 17:17 BP 149 / 103; Pulse 123; Resp 18; Temp 97.4; Pulse Ox 99% on R/A; Weight 108.86 kg; aj Height 5 ft. 4 in. (162.56 cm); 18:21 BP 137 / 104; Pulse 128; Resp 15; Pulse Ox 98% on R/A; ae4 20:00 BP 141 / 98; Pulse 110; Resp 19; Temp 98.4(O); Pulse Ox 100% on R/A; jb4 17:17 Body Mass Index 41.20 (108.86 kg, 162.56 cm) aj MDM: 17:23 Patient medically screened. 18:30 Data reviewed: vital signs, nurses notes, lab test result(s), EKG, and as a result, I cp will admit patient. 18:30 Differential diagnosis: gastritis, viral gastroenteritis, gastroenteritis, DKA. Test cp interpretation: by ED physician or midlevel provider: ECG. 18:33 Physician consultation: Evelia Cline MD was called at 18:33, was contacted at 18:33, cp regarding admission, to the telemetry unit. patient's condition. 05/17 17:18 Order name: Urine Culture [facility] 05/17 17:18 Order name: Urine Microscopic Only; Complete Time: 20:33 [facility] 05/17 17:26 Order name: Basic Metabolic Panel; Complete Time: 18:24 05/17 18:24 Interpretation: Normal except: NA 134; GFR 50; GLUC 627. 05/17 17:26 Order name: CBC with Diff; Complete Time: 18:25 05/17 18:25 Interpretation: Normal except: RBC 5.49; HGB 16.1; HCT 49.3; MCV 89.8; MCH 29.3; GOSIA% cp 77.1; LYM% 13.0. 05/17 17:26 Order name: Creatinine for Radiology; Complete Time: 18:24 05/17 17:26 Order name: Hepatic Function; Complete Time: 18:24 cp 05/17 17:26 Order name: Lipase; Complete Time: 18:24 05/17 17:26 Order name: Magnesium; Complete Time: 18:24 05/17 17:26 Order name: Ketone, Serum; Complete Time: 18:24 cp 05/17 18:24 Interpretation: Abnormal: ACET MODERATE. cp 05/17 17:26 Order name: ABG 05/17 17:51 Order name: Urine Dipstick--Ancillary (enter results); Complete Time: 18:24 05/17 17:51 Order name: Urine --Ancillary (enter results); Complete Time: 18:24 05/17 18:37 Order name: Osmolality, Serum cp 05/17 18:37 Order name: Urine Osmolality cp 05/17 17:17 Order name: FSBS; Complete Time: 17:35 snw 05/17 17:18 Order name: Urine Test (obtain specimen); Complete Time: 17:48 snw 05/17 17:18 Order name: Urine Dipstick-Ancillary (obtain specimen); Complete Time: 17:48 snw 05/17 17:26 Order name: IV Saline Lock; Complete Time: 17:34 cp 05/17 17:26 Order name: Labs collected and sent; Complete Time: 17:35 cp 05/17 17:26 Order name: EKG; Complete Time: 17:29 cp 05/17 17:26 Order name: EKG - Nurse/Tech; Complete Time: 17:54 cp 05/17 18:50 Order name: IV; Complete Time: 19:02 cp EC:00 Rate is 118 beats/min. Rhythm is regular. LA interval is normal. QRS interval is cp normal. QT interval is normal. Interpreted by me. Reviewed by me. Administered Medications: 17:45 Drug: NS 0.9% 1000 ml Route: IV; Rate: 1 bolus; Site: right antecubital; ae4 19:15 Follow up: IV Status: Completed infusion; IV Intake: 1000ml jb4 17:45 Drug: Insulin Regular Human 10 units {Co-Signature: rb1 (Cherie Chavarria RN).} Route: ae4 IVP; Site: right antecubital; 19:02 Follow up: Response: Temperature is decreased; FSBS 399 ae4 18:35 Drug: NS 0.9% 1000 ml Route: IV; Rate: 1 bolus; Site: right antecubital; ae4 20:35 Follow up: IV Status: Completed infusion; IV Intake: 1000ml jb4 19:55 Drug: NS 0.9% 1000 ml Route: IV; Rate: 1 bolus; Site: left antecubital; jb4 20:35 Follow up: Response: No adverse reaction; IV Status: Infusion continued upon admission; jb4 IV Intake: 500ml 19:55 Drug: Insulin Drip - (Insulin Regular Human 100 units, NS 0.9% 100 ml) {Co-Signature: jb4 ae4 (Dmitry Godfrey RN).} Route: IV; Rate: 10 units/hr; Site: left antecubital; 20:35 Follow up: Response: No adverse reaction; IV Status: Infusion continued upon admission jb4 Point of Care Testing: Blood Glucose: 17:22 Blood Glucose: High (>450 mg/dL); iw 18:42 Blood Glucose: 399 mg/dL; ae4 19:57 Blood Glucose: 363 mg/dL; jb4 17:22 Nurse notified of high sugar reading and need for lab follow up iw Ranges: Critical Glucose Levels:Adult <50 mg/dl or >400 mg/dl <40 mg/dl or >180 mg/dl Disposition: 05/18 06:21 Co-signature as Attending Physician, Jose Matthews MD I agree with the assessment and elsa plan of care. Disposition: 05/17/19 19:39 Hospitalization ordered by Jay Reed for Inpatient Admission. Preliminary diagnosis is Diabetes mellitus due to underlying condition with ketoacidosis. - Bed requested for Intensive Care Unit. - Status is Inpatient Admission. ak1 - Condition is Stable. - Problem is new. - Symptoms have improved. UTI on Admission? No Signatures: Dispatcher [employer] EDMS Masha Dumas RN RN mw Myers, Amanda RN Jose Devine MD MD cha Therrien, Shelly, COLOR BUFFER-C COLOR BUFFER-Csnw Molly Wiggins RN RN ak1 Jose Rao PA PA cp Bryson, James RN RICHARD [email or web address] Dmitry Godfrey RN RN ae4 Cherie Godfrey RN ae4 Corrections: (The following items were deleted from the chart) 05/17 19:41 19:39 Hospitalization Ordered by Jay Reed DO for Inpatient Admission. Preliminary mw diagnosis is Diabetes mellitus due to underlying condition with ketoacidosis. Bed requested for Intensive Care Unit. Status is Inpatient Admission. Condition is Stable. Problem is new. Symptoms have improved. UTI on Admission? No. cp 20:47 19:41 05/17/2019 19:39 Hospitalization Ordered by Jay Reed DO for Inpatient ak1 Admission. Preliminary diagnosis is Diabetes mellitus due to underlying condition with ketoacidosis. Bed requested for Intensive Care Unit. Status is Inpatient Admission. Condition is Stable. Problem is new. Symptoms have improved. UTI on Admission? No. mw
--- NOTE | 2019-05-17 19:42 | P.HP ---
Certification for Inpatient Patient admitted to: Inpatient With expected LOS: >2 Midnights Patient will require the following post-hospital care: None Practitioner: I am a practitioner with admitting privileges, knowledge of patient current condition, hospital course, and medical plan of care. Services: Services provided to patient in accordance with Admission requirements found in Title 42 Section 412.3 of the Code of Federal Regulations Patient History Date of Service: 05/17/19 Primary Care Provider: None Reason for admission: Polydipsia, polyuria History of Present Illness: 33-year-old female presented to the emergency room with increasing polyuria and polydipsia. She also reported some nausea, vomiting and poor appetite. Over the last several days symptoms had been getting worse. She is not able to keep anything down. Patient with history of gestational diabetes and preeclampsia. Her last was September of 2018. In the ER patient evaluated. Blood sugar found to be at 6:00 a.m. 22. Sodium 134, potassium 3.7, chloride 99. Bicarb 21. BUN of 15, creatinine 1.25 with a GFR 50. White count 10.2. Hemoglobin 16.1. Positive acetones were noted. test negative. Anion gap at 14. Patient was admitted to ICU for DKA. Patient stable at this time. Patient appears dry. Some nausea noted. Patient has not been followed up since her low last . Only mention of diabetes is gestational diabetes on her last Allergies cefaclor [From Ceclor] Allergy (Unverified 01/21/17 13:38) Unknown Penicillins Allergy (Unverified 06/13/17 00:36) Unknown Home medications list reviewed: Yes - Past Medical/Surgical History Diabetic: Yes -: History of gestational diabetes -: History of preeclampsia Past Surgical History: Patient denies surgical history Psychosocial/ Personal History: Patient is single. She has 3 children. 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 - Family History Father -: Diabetes Brother -: Diabetes Sister -: Diabetes - Social History Smoking Status: Never smoker Alcohol use: Yes CD- Drugs: No Caffeine use: Yes Place of Residence: Home Review of Systems General: Weakness, Malaise, As per HPI Eyes: Unremarkable ENT: Unremarkable Respiratory: Unremarkable Cardiovascular: Unremarkable Gastrointestinal: Nausea, Vomiting, As per HPI Genitourinary: Frequency, As per HPI Musculoskeletal: Unremarkable Integumentary: Unremarkable Neurological: Unremarkable Lymphatics: Unremarkable Physical Examination - Physical Exam General: Alert, In no apparent distress, Oriented x3, Cooperative HEENT: Atraumatic, Normocephalic, PERRLA, Other (Dry mucous membranes), EOMI Neck: Supple, No Thyromegaly Respiratory: Clear to auscultation bilaterally, Normal air movement Cardiovascular: Abnormal pulses (Mild sinus tachycardia) Gastrointestinal: Normal bowel sounds, Soft and benign, Non-distended, No tenderness, No masses, No rebound, No guarding Musculoskeletal: No erythema, No tenderness, No warmth Integumentary: No tenderness/swelling, No erythema, No warmth, No cyanosis, Other (Dry skin noted) Neurological: Normal speech, Normal strength at 5/5 x4 extr, Normal tone, Normal affect - Studies Laboratory Data (last 24 hrs) 05/17/19 17:28: Creatinine 1.25 05/17/19 17:28: WBC 10.2, Hgb 16.1 H, Hct 49.3 H, Plt Count 311 05/17/19 17:28: Sodium 134 L, Potassium 3.7, BUN 15, Creatinine 1.25, Glucose 627 H*, Magnesium 2.7 H, Total Bilirubin 0.9, AST 12 L, ALT 40, Alkaline Phosphatase 130 H, Lipase 173 Assessment and Plan - Plan Impression: Polydipsia, polyuria, nausea and vomiting secondary to diabetic ketoacidosis with history of gestational diabetes Dehydration related to above Plan: Polydipsia, polyuria, nausea and vomiting secondary to diabetic ketoacidosis with history of gestational diabetes: Patient will be admitted to ICU for close monitoring. Patient to continue with aggressive IV fluid hydration. Insulin drip to be started. Will maintain blood sugars between 100-200. Will check A1c. Will continue monitor Accu-Cheks and BMP closely. Once her anion gap has closed and blood sugars better controlled then will consider transition to subcu insulin. Patient likely with underlying type 2 diabetes due to history of gestational diabetes. Patient may require basal insulin at discharge along with oral medication. Patient will require diabetic teaching and education. Likely discharge in the next 1-2 days with clinical improvement. Will start DVT prophylaxis-Lovenox. Will also provide GI prophylaxis-Pepcid. Dehydration related to above: Continue IV fluid hydration. Will monitor closely. Discharge Plan: Home Plan to discharge in: 24 Hours - Advance Directives Does patient have a Living Will: No Does patient have a Durable POA for Healthcare: No - Code Status/Comfort Care Code Status Assessed: Yes (Patient is full code) Time Spent Managing Pts Care (In Minutes): 55
[2019-05-17] MEDS ORDERED: NA CHLORIDE 0.9% 100 ML IV ONE (19:58)
[2019-05-17] MEDS ORDERED: INSULIN -REGULAR HUMAN 100 UNIT in NA CHLORIDE 0.9% 100 ML IV SCH (20:30)
[2019-05-17] MEDS ORDERED: NA CHLORIDE 0.9% 1,000 ML IV ONE (20:30)
[2019-05-17 21:05] LABS: Arterial Blood Carboxyhemoglob 1.5 % (0-1.5); Blood Gas Oxyhemoglobin 94.6 % (94-97); Blood O2 Saturation 96.9 % (92-98.5)
[2019-05-17] MEDS: NACHLORIDE 0.45% 1,000 ML IV SCH (21:44)
[2019-05-17] MEDS: ONDANSETRON 4 MG/2 ML VIAL IV PRN (21:44)
[2019-05-17] MEDS: FAMOTIDINE 20 MG/2 ML VIAL IV SCH (21:44)
[2019-05-17 22:12] LABS: BUN Blood Urea Nitrogen 12 mg/dL (7-18); Bicarbonate 18 mmol/L (21-32); Glucose Level 298 mg/dL (74-106); Potassium 3.9 mmol/L (3.5-5.1); Sodium Level 145 mmol/L (136-145)
[2019-05-17 22:29] LABS: Thyroid Stimulating Hormone 0.513 uIU/mL (0.360-3.740)
[2019-05-18] MEDS: D5 0.45 NS 1,000 ML IV SCH ×3 (00:16→12:30)
[2019-05-18 01:02] LABS: BUN Blood Urea Nitrogen 11 mg/dL (7-18); Bicarbonate 20 mmol/L (21-32); Glucose Level 176 mg/dL (74-106); Sodium Level 145 mmol/L (136-145)
[2019-05-18 01:03] LABS: Potassium 2.9 mmol/L (3.5-5.1)
[2019-05-18] MEDS: KCL 20 MEQ/100 mL IVPB 20 MEQ/100 ML BAG IV SCH ×3 (01:32→05:30)
[2019-05-18] MEDS ORDERED: ACETAMINOPHEN 500 MG TAB PO ONE (04:03)
[2019-05-18] MEDS: NACHLORIDE 0.45% 1,000 ML IV SCH (04:30)
[2019-05-18 04:52] LABS: Absolute Lymphocytes (CBC) 1.9 K/uL (0.7-4.9); Basophils % 0.5 % (0-1.3); Hematocrit 36.5 % (36.0-45.0); MPV 9.8 fL (7.6-11.3); RBC Red Blood Cell Count 4.17 M/uL (3.86-4.86)
[2019-05-18 05:52] LABS: BUN Blood Urea Nitrogen 11 mg/dL (7-18); Bicarbonate 23 mmol/L (21-32); Glucose Level 170 mg/dL (74-106); HDL Cholesterol 31 mg/dL (40-60); LDL Cholesterol, Calculated ND (<130); Magnesium 2.1 mg/dL (1.8-2.4); Potassium 3.4 mmol/L (3.5-5.1); Sodium Level 146 mmol/L (136-145)
[2019-05-18] MEDS ORDERED: GLUCAGON 1 MG/VIAL IM PRN (06:07)
[2019-05-18] MEDS ORDERED: D50W 25 GM/50 ML SYRINGE IV PRN (06:07)
[2019-05-18 06:12] LABS: LDL, Direct 101 mg/dL (100-129)
[2019-05-18] MEDS ORDERED: NACHLORIDE 0.45% 1,000 ML IV SCH (07:00)
[2019-05-18] MEDS: INSULIN GLARGINE 100 UNITS/ML SQ SCH ×3 (07:09→21:26)
[2019-05-18] MEDS: INSULIN -REGULAR HUMAN 50 UNIT/0.5 ML ML SQ SCH ×4 (07:30→21:25)
[2019-05-18] MEDS: ONDANSETRON 4 MG/2 ML VIAL IV PRN (07:47)
[2019-05-18] MEDS: FAMOTIDINE 20 MG/2 ML VIAL IV SCH (10:07)
[2019-05-18] MEDS: ENOXAPARIN 40 MG/0.4 ML SQ SCH (10:08)
--- NOTE | 2019-05-18 10:36 | EKG ---
Test Date: 2019-05-17 Test Time: 17:52:31 Certified Medical Biller: JOSH MEASUREMENT RESULTS: Intervals: Rate: 118 FL: 126 QRSD: 86 QT: 308 QTc: 431 [place]: P: 33 FL: 126 QRS: -6 T: 2 INTERPRETIVE STATEMENTS: Sinus tachycardia Otherwise normal ECG No previous ECG available for comparison Electronically Signed On 05-18-19 10:35:34 CDT by Matias Woodall
--- NOTE | 2019-05-18 15:53 | PN ---
Date of Progress Note: 05/18/2019 Subjective: Patient seen and examined. Chart reviewed and case discussed with RN. Patient still in ICU with insulin drip, reporting blurry vision and not able to ambulate without losing her balance. Medications: List reviewed. Physical Examination: Vital Signs: Temperature 97.1, heart rate 84, blood pressure 125/89, respirations 13, O2 of 100% on room air. General: Awake, alert, and oriented x3. Ill-appearing, obese female. CV: S1, S2. Regular rate and rhythm. Peripheral pulses present. Respiratory: Moving air well bilaterally. No wheezing or stridor. No use of accessory muscles. Gastrointestinal: Abdomen is soft, nontender, nondistended. Positive bowel sounds. No guarding or rigidity. Extremities: No clubbing, cyanosis, or edema. Neuro: Cranial nerves 2-12 intact grossly. No focal neurological deficit. Speech is normal. Skin: No rashes normal skin turgor. Psych: Mood is somewhat anxious. Affect is congruent with mood, insight, and judgment good. Laboratory Data: Sodium 146, potassium 3.4, chloride 115, CO2 of 23, BUN 11, creatinine 0.62, glucos e 170, calcium 7.6, magnesium 2.1. Triglycerides 500. Repeat potassium level is 3.9. WBC 7.3, H an d H 12.8 36.5, platelets 190. Hemoglobin A1c is 11.1%. Urine test is negative. Assessment And Plan: A 33-year-old female with: 1.Diabetic ketoacidosis. Anion gap is now closed. Negative ketones. We will switch off insulin dr ip. Patient received 20 units of Lantus in the morning. Hemoglobin A1c is 11.1%. She did have hist ory of gestational diabetes. Patient will likely need further adjustment of her basal insulin. Cont inue with sliding scale insulin and monitor blood glucose levels. 2.Morbid obesity, BMI of 40.9. 3.Intractable nausea and vomiting secondary to above, improving. We will start on diabetic diet. 4.Blurry vision, likely related to her elevated blood glucose levels. Glucose level was 627 upon ar rival. Patient will need diabetic eye exam to rule out retinal damage with Ophthalmology as an outpa tient. 5.Hypokalemia, replaced. We will continue to monitor. 6.Hypertriglyceridemia. Patient has been counseled. 7.Deep venous thrombosis prophylaxis addressed. Plan: Step down from ICU. Continue Lovenox for deep venous thrombosis prophylaxis. Likely discharg e in the next 24-48 hours depending on clinical response. /SHARON Voice ID: [id number] Report ID: [id number]
[2019-05-18] MEDS ORDERED: TRAMADOL HCL 50 MG TAB PO PRN (19:28)
[2019-05-18] MEDS: FAMOTIDINE 20 MG TAB PO SCH (21:23)
[2019-05-18] MEDS: HYDROCODONE/APAP 5/325 MG TAB PO PRN (21:24)
[2019-05-19 06:19] LABS: Absolute Lymphocytes (CBC) 1.7 K/uL (0.7-4.9); Basophils % 0.6 % (0-1.3); Hematocrit 42.3 % (36.0-45.0); Lymphocytes % 26.9 % (15.3-44.8); MPV 9.9 fL (7.6-11.3); RBC Red Blood Cell Count 4.78 M/uL (3.86-4.86)
[2019-05-19 06:41] LABS: BUN Blood Urea Nitrogen 8 mg/dL (7-18); Bicarbonate 18 mmol/L (21-32); Glucose Level 302 mg/dL (74-106); Magnesium 2.2 mg/dL (1.8-2.4); Potassium 4.1 mmol/L (3.5-5.1); Sodium Level 138 mmol/L (136-145)
[2019-05-19] MEDS: HYDROCODONE/APAP 5/325 MG TAB PO PRN ×2 (06:55→17:18)
[2019-05-19] MEDS: INSULIN GLARGINE 100 UNITS/ML SQ SCH ×2 (08:41→21:12)
[2019-05-19] MEDS: INSULIN -REGULAR HUMAN 50 UNIT/0.5 ML ML SQ SCH (08:42)
[2019-05-19] MEDS: FAMOTIDINE 20 MG TAB PO SCH ×2 (08:43→21:12)
[2019-05-19] MEDS: ENOXAPARIN 40 MG/0.4 ML SQ SCH (08:43)
[2019-05-19] MEDS ORDERED: INSULIN LISPRO 100 UNIT/1 ML SQ SCH (12:00)
--- NOTE | 2019-05-19 15:03 | PN ---
Date of Progress Note: 05/19/2019 Subjective: Patient seen and examined. Chart reviewed and case discussed with RN. Patient no jenny r in DKA, was moved out of the ICU yesterday. Patient's blood glucose level still very much elevated . Medications: List reviewed. Physical Examination: Vital Signs: Temperature 97.4, heart rate 87, blood pressure 106/65, respirations 20, O2 of 98% on r oom air. General: Awake, alert, and oriented x3, not in any acute distress. Morbidly obese female. CV: S1 and S2. No murmurs. Respiratory: Moving air well bilaterally. No wheezing. Gastrointestinal: Abdomen is soft, nontender, nondistended. Positive bowel sounds. No guarding or rigidity. Extremities: No clubbing, cyanosis, or edema. Neuro: Cranial nerves 2 through 12 intact grossly. No focal neurological deficits. Speech is miguel l. Laboratory Data: Sodium 138, potassium 4.1, chloride 106, CO2 of 18, BUN 8, creatinine 0.61, glucose 302, calcium 8.3, magnesium 2.2. WBC 6.4, H and H 14.4 and 42.3, platelets 175, neutrophils 61%. U rine culture growing mixed talisha. Assessment And Plan: A 33-year-old female with: 1.Diabetic ketoacidosis. Anion gap now closed. Negative ketones now on subcutaneous insulin. Bloo d glucose level still not well controlled. Lantus has been doubled in the past 24 hours. We will ne ed to increase to 50 units. Patient has been counseled regarding her diet. We will increase pre-felix l insulin to 20 units. 2.Hyperkalemia, corrected. 3.Morbid obesity, BMI of 40.9. 4.Intractable nausea and vomiting resolved. Able to tolerate a diet. 5.Blurry vision, improved. Patient recommended to have diabetic eye exam as an outpatient. 6.Hypertriglyceridemia. Diet and exercise changes. 7.Deep venous thrombosis prophylaxis with sequential compression devices and Lovenox. Plan: Adjust insulin dose. Discharge once blood glucose levels better controlled. SA/MODL Voice ID: [id number] Report ID: [id number]
[2019-05-19] MEDS: INSULIN LISPRO 100 UNIT/1 ML SQ SCH (17:17)
[2019-05-19] MEDS ORDERED: INSULIN GLARGINE 100 UNITS/ML SQ SCH (21:00)
[2019-05-20 06:20] LABS: Absolute Lymphocytes (CBC) 1.5 K/uL (0.7-4.9); Basophils % 0.5 % (0-1.3); Hematocrit 40.9 % (36.0-45.0); Lymphocytes % 23.4 % (15.3-44.8)
[2019-05-20 06:30] LABS: BUN Blood Urea Nitrogen 8 mg/dL (7-18); Bicarbonate 15 mmol/L (21-32); Glucose Level 282 mg/dL (74-106); Magnesium 2.2 mg/dL (1.8-2.4); Potassium 3.5 mmol/L (3.5-5.1); Sodium Level 140 mmol/L (136-145)
[2019-05-20] MEDS: INSULIN GLARGINE 100 UNITS/ML SQ SCH (08:46)
[2019-05-20] MEDS: ENOXAPARIN 40 MG/0.4 ML SQ SCH (08:47)
[2019-05-20] MEDS: INSULIN LISPRO 100 UNIT/1 ML SQ SCH ×2 (08:47→12:15)
[2019-05-20] MEDS: FAMOTIDINE 20 MG TAB PO SCH (08:47)
[2019-05-20] MEDS: HYDROCODONE/APAP 5/325 MG TAB PO PRN (08:53)
[2019-05-20] MEDS ORDERED: POTASSIUM 25 MEQ EFFERV TAB PO ONE (09:00)
--- NOTE | 2019-05-21 05:11 | DS ---
Date of Discharge: 05/20/2019 Admitting Diagnoses: 1.Diabetic ketoacidosis. 2.New onset diabetes. 3.Morbid obesity. Discharge Diagnoses: 1.Diabetic ketoacidosis, resolved without coma. 2.Hyperkalemia, corrected. 3.Morbid obesity, BMI of 40. 4.Intractable nausea and vomiting, resolved. 5.Blurry vision, resolved. 6.Hypertriglyceridemia. 7.New onset of diabetes. Hospital Course: The patient is a 33-year-old female who was diagnosed with gestational diabetes, co mes in with recent polyuria, polydipsia, nausea, vomiting. Patient was found to have DKA, was starte d on IV insulin. Patient was in DKA. She responded well to insulin drip for DKA, resolved. She was taken off IV insulin and transition to subcutaneous insulin. Her hemoglobin A1c was 11%. She was d ifficult to control, has been requiring increasing doses of Lantus. She also required significant am ount of premeal insulin. Patient was counseled regarding her diabetes. She will need extensive diab etic education, needs to have a primary care physician, needs to have glucometer strips, Lantus and t o monitor her blood glucose levels at least twice a day if not 4 times a day. The patient did report blurry vision, which improved throughout the course of the hospital stay, likely related to her hype rglycemia. Patient's blurry vision improved as her blood sugars improved. Her urine culture grew ou t mixed talisha. Patient's blood sugars were in the 200s. She will need continued monitoring at home. She needs to keep a log and find a primary care physician as soon as possible. She understands the risks associated with uncontrolled diabetes including retinopathy, neuropathy, nephropathy, along wi th other complications. Patient was then cleared for discharge. She was taught how to give insulin shots herself. All of her questions were answered. Diet: Diabetic. Activity: As tolerated. Followup: Follow up with primary care physician in 2-3 days. Return to ER for worsening condition. Medications: As per medication reconciliation list. Physical Examination: General: Awake, alert, oriented x3. Morbidly obese female. CV: S1, S2. Respiratory: Moving air well bilaterally. Abdomen: Soft, nontender, nondistended. Positive bowel sounds. Extremities: No clubbing, cyanosis, edema. Neurologic: Nonfocal. Total time spent discharging the patient was 45 minutes. PADILLA Voice ID: [id number] Report ID: [id number]
== END 2019-05-20 13:18 | disposition home or self-care (01) | DRG 638 ==
LOC: ER 17:01 → ERHOLD 19:27 → 3RD-ICU 20:35 → 4TH 05-18 13:05
PROVIDERS: ADMIT Family Medicine; ATTEND Family Medicine
DX: E11.10 Type 2 diabetes mellitus with ketoacidosis without coma (principal); Z68.41 Body mass index [BMI] 40.0-44.9, adult; E86.0 Dehydration; E66.01 Morbid (severe) obesity due to excess calories; E87.6 Hypokalemia; E78.1 Pure hyperglyceridemia; Z86.32 Personal history of gestational diabetes; Z88.0 Allergy status to penicillin
CPT/HCPCS: 36415; 80048; 80061; 80076; 81003; 81015; 81025; 82010; 82805; 82962; 83036; 83690; 83735; 83935; 84132; 84439; 84443; 85025; 87086; 87088; 93005; 96361; 96365; 99285; J1650; J2405; J7030

== ENCOUNTER 2020-04-12 22:16 | Inpatient (IN) | payer OTHER ==
--- OUTSIDE RECORDS SUMMARY | 2020-04-12 22:19 | XMS REPORT | Continuity of Care Document ---
:1985 Author Organization [facility] t Address [address] [place] [address] Care Team Providers Name Role Phone Rohan Healy MD Attending Clinician Doctor Unassigned, Name Attending Clinician Unavailable Problems Condition Condition Condition Status Onset Resolution Last Treating Co mments Source Name Details Category Date Date Treatment Clinician Date Unknown Unknown Problem Active [facility] date of date of [facility] - last last [facility] menstrual menstrual l period, period, Outpati antepartum antepartum en Clinics History of History of Problem Active [facility] recurrent recurrent [facility] - , , Sukhjinder ej currently currently l Outpat i in first in first ent trimester trimester Clin ics Problem Active [facility] in in [facility] - multigravi multigravi Me moria da da 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 [facility] 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 current [facility] - use of use of Memoria insulin insulin l [facility] ent Clinics Type 2 Type [address] [facility] diabetes diabetes [facility] - mellitus mellitus Memori a with with l hyperglyce hyperglyce [facility] ent Clinics Depression Depression Problem Active [facility] with with [facility] - anxiety anxiety Memoria l [facility] ent Clinics Body mass Body mass Problem Active [facility] index index [facility] - (BMI) (BMI) Memoria 40.0-44.9, 40.0-44.9, l adult adult [facility] ent Clinics Multigravi Multigravi Problem Active [facility] da in da in [facility] - second second Memoria trimester trimester l [facility] ent Clinics Obstructiv Obstructiv Problem Active [facility] e sleep e sleep [facility] - apnea apnea Memoria syndrome syndrome l [facility] ent Clinics Allergic Allergic Problem Active [facility] rhinitis, rhinitis, [facility] - unspecifie unspecifie Me moria d d l seasonalit seasonalit Ou tpati y, y, ent unspecifie unspecifie Cl inics d trigger d trigger Morbid Morbid Problem Active [facility] obesity obesity [facility] - Mem[facility] ent [facility] Insomnia, Insomnia, Problem Active [facility] unspecifie unspecifie Susy kes - d type d type Memoria [facility] ent [facility] Diarrhea, Diarrhea, Diagnosis Active [facility] unspecifie unspecifie Susy kes - d type d type Memoria [facility] ent Clinics Fever, Fever, Diagnosis Active [facility] unspecifie unspecifie Susy kes - d fever d fever Memoria cause cause [facility] ent [facility] Vomiting, Vomiting, Diagnosis Active [facility] intractabi intractabi Susy kes - lity of lity of Memoria vomiting vomiting l not not Outpati specified, specified, en t presence presence Clinic s of nausea of nausea not not specified, specified, unspecifie unspecifie d vomiting d vomiting type type Cough Cough Diagnosis Active [facility] ent [facility] Allergies, Adverse Reactions, Alerts Allergy Allergy Status Severity Reaction(s) Onset Inactive Treating Comm ents Source Name Type Date Date Clinician ceclor Adverse Active hives [facility] Reaction [facility] - Memoria [facility] ent [facility] Medications Ordered Filled Start Stop Current Ordering Indication Dosage Frequency Signature Comments Components Source Medication Medication Date Date Medication? Clinician (SIG) Name Name Trazodone Trazodone Yes Homer 1-[address] HCl HCl 4-02 Mei tablets at [facility] - 00:00: bedtime as Memoria 00 needed for l sleep [facility] ent Clinics Lancets Lancets 2018-10 Yes Homer as [facility] 2-10 Mei directed [facility] - 00:00: (dispense Memoria 00 lancets l formulary [facility] to ent insurance) Clinics Blood Blood 2018-10 Yes Homer as [facility] Glucose Glucose 2-10 Mei directed Luke [facility] - Test Strip Test Strip 00:00: (DISPENSE Memoria 00 BLOOD l GLUCOSE Outpati TEST ent STRIPS Clinics FORMULARY TO INSURANCE) Blood Blood 2018-10 Yes Homer as [facility] Glucose Glucose 2-10 Mei directed Luke s - Monitor Monitor 00:00: (DISPENSE Me moria 00 BLOOD l GLUCOSE Outpati MONITOR ent FORMULARY Clinics TO INSURANCE) Pen [place] Pen [place] 2018-10 Yes Homer as [facility] 2-10 Mei directed [facility] - 00:00: Memoria 00 l Outpati ent Clinics Claritza Jerry Yes Homer [address] [facility] SoloStar SoloStar - Mei [facility] - 00:00: Memoria 00 l Outpati ent Clinics Jardiance Jardiance 2020- No Homer [address] [facility] -29 09-05 Mei [facility] - 00:00: 00:00 Memoria 00 :00 l Outpati ent Clinics Paxil Paxil Yes Homer [address] [facility] Mei in the [facility]ukes - morning [facility] Outpati ent Clinics Metformin Metformin Yes Homer [address] [facility] HCl HCl Mei with a [facility]ukes - meal [facility] Outpati ent Clinics Procedures This patient has no known procedures. Encounters Start End Encounter Admission Attending Care Care Encounter Source Date/Time Date/Time Type Type Clinicians Facility Department ID 2020-04-10 2020-04-10 [facility] [id number] [facility] 14:45:00 14:45:00 [employer] [place] [facility] Medicine l Medicine Outpati ent Clinics 2020-01-26 2020-01-26 [facility] [id number] [facility] 08:45:00 08:45:00 [facility] Medicine l Medicine Outpati ent Clinics 2019-12-22 2019-12-22 [facility] [id number] [facility] 09:31:00 09:31:00 [facility] Medicine l Medicine Outpati ent Clinics 2019-10-04 2019-10-04 [facility] [id number] [facility] 11:20:00 11:20:00 [facility] Medicine l Medicine Outpati ent Clinics 2019-09-20 2019-09-20 [facility] [id number] [facility] 14:22:00 14:22:00 [facility] Medicine Medicine Outpati ent Clinics 2019-07-25 2019-07-25 [facility] [id number] 09[facility]30:00 09:30:00 t [facility] Medicine Outpati ent Clinics 2019-06-24 2019-06-24 [facility] [id number] [address] 15:22:00 15:22:00 t [facility] Medicine Outpati ent Clinics 2019-06-14 2019-06-14 Office Qiana Healy WYSOHAIL [id number] 10:05:22 10:58:29 Visit Rohan Cobian [id number] [place] [id number] Professio [id number] [address] 2019-06-14 2019-06-14 Orders Doctor SUMNER [id number] 00:00:00 00:00:00 Only Unassigned, SHAHRAM [id number] [place] [facility] [id number] 2019-06-01 2019-06-01 [facility] [id number] 13:27:00 13:27:00 t [facility] Medicine Outpati ent Clinics 2019-05-27 2019-05-27 [facility] [id number] [facility] 08:21:00 08:21:00 t [facility] Medicine Outpati ent Clinics 2019-05-26 2019-05-26 [facility] [id number] 14:54:00 14:54:00 t [facility] Medicine Outpati ent Clinics 2019-05-24 2019-05-24 [facility] [id number] 10:52:00 10:52:00 t [facility] Medicine Outpati ent Clinics 2019-05-23 2019-05-23 [facility] [id number] [facility] 15:30:00 15:30:00 t [facility] Medicine Outpati ent Clinics Results This patient has no known results.
--- OUTSIDE RECORDS SUMMARY | 2020-04-12 22:19 | XMS REPORT ---
:1985 Author Organization [employer] Care Team Providers Name Role Phone Martine Pulido Provider Role Unavailable Allergies, Adverse Reactions, Alerts Substance Reaction Event Type marilulor tali Drug Allergy Problems Problem Type Condition Code Onset Dates Condition Statu s Problem History of recurrent , O26.21 Active currently in first trimester Problem Allergic rhinitis, unspecified J30.9 Active seasonality, unspecified trigger Problem Multigravida in second trimester Z34.82 Active Problem Morbid obesity E66.01 Active Problem Body mass index (BMI) 40.0-44.9, Z68.41 Active adult Problem Insomnia, unspecified type G47.00 A ctive Problem halfway current use of insulin Z79.4 Active Problem Type 2 diabetes mellitus with E11.65 Active hyperglycemia Problem Obstructive sleep apnea syndrome G47.33 Active Problem Depression with anxiety F41.8 Acti ve Assessment Body mass index (BMI) 40.0-44.9, Z68.41 Active adult Assessment Morbid obesity E66.01 Active Assessment Insomnia, unspecified type G47.00 A ctive Assessment Type 2 diabetes mellitus with E11.65 Active hyperglycemia Assessment Depression with anxiety F41.8 Acti ve Problem Unknown date of last menstrual Z34.90 Active period, antepartum Assessment halfway current use of insulin Z79.4 Active Problem in multigravida Z34.80 Ac tive Medications Medication Code Code Instructions Start End Status Dosage System Date Date Paxil [facility] 78820201225 20 MG Orally Active 1 table t in Once a day the morning Lancets [facility] 53509441934 - as directed Oct 04, Active as dir ected Test BS three 2018 (dispense times daily lancets formulary to insurance) Blood Glucose NDC 0 as directed Oct 04, Active as di rected Test Strip Test BS three 2018 (DISPEN SE times daily BLOOD GLUCOSE TEST STRIPS FORMULARY TO INSURANCE) Blood Glucose NDC 0 as directed Oct 04, Active as di rected Monitor Test BS three 2018 (DISPENSE times daily BLOOD GLUCOSE MONITOR FORMULARY TO INSURANCE) Jardiance [facility] 83007012308 25 MG Orally May 23Jun Active 1 ta blet Once a day 2018 [place] [facility] 71242513182 32G X 5 MM Oct 04 as di rected Subcutaneous 2018 Once daily (To be used with [employer]ourioo Solostar Pen) Claritza [facility] [id number] 300 UNIT/ML Active 30 units SoloStar subcutaneous Once daily Metformin HCl [facility] 58536091262 500 MG Orally Active 1 tablet Once a day with a meal Trazodone HCl [facility] 09628952123 50 MG Orally January Active 1 -2 tablets Once a day 2019 at bedtime as needed for sleep Results Name Result Date Reference Range Unit Abnormali ty Flag HEMOGLOBIN A1C ----A1C 7.3% 20200126 GLUCOSE FINGER ----Result 129 [id number] Summary Purpose [employer] Submission
--- OUTSIDE RECORDS SUMMARY | 2020-04-12 22:19 | XMS REPORT ---
:1985 Author Organization eClinicalWorks Care Team Providers Name Role Phone MeiHomer Provider Role Unavailable Allergies, Adverse Reactions, Alerts Substance Reaction Event Type harris cesar Drug Allergy Problems Problem Type Condition Code Onset Dates Condition Statu s Problem History of recurrent , O26.21 Active currently in first trimester Problem Allergic rhinitis, unspecified J30.9 Active seasonality, unspecified trigger Problem Multigravida in second trimester Z34.82 Active Problem Morbid obesity E66.01 Active Problem Body mass index (BMI) 40.0-44.9, Z68.41 Active adult Problem Insomnia, unspecified type G47.00 A ctive 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 Problem Type 2 diabetes mellitus with E11.65 Active hyperglycemia Problem Obstructive sleep apnea syndrome G47.33 Active Problem Depression with anxiety F41.8 Acti ve Assessment Diarrhea, unspecified type R19.7 A ctive Assessment Fever, unspecified fever cause R50.9 Active Assessment Vomiting, intractability of vomiting R11.10 Active not specified, presence of nausea not specified, unspecified vomiting type Problem Unknown date of last menstrual Z34.90 Active period, antepartum Assessment Cough R05 Active Problem in multigravida Z34.80 Ac tive Medications Medication Code Code Instructions Start End Status Dosage System Date Date Blood Glucose NDC 0 as directed Oct 04, Active as di rected Test Strip Test BS three 2018 (DISPEN SE times daily BLOOD GLUCOSE TEST STRIPS FORMULARY TO INSURANCE) Paxil ND 34274377386 20 MG Orally Active 1 table t in Once a day the morning Blood Glucose NDC 0 as directed Oct 04, Active as di rected Monitor Test BS 2018 (DISPENSE times daily BLOOD GLUCOSE MONITOR FORMULARY TO INSURANCE) Lancets ND [id number] - as directed Oct 04, Active as dir ected Test BS 2018 (dispense times daily lancets formulary to insurance) [place] ND [id number] 32G X 5 MM Oct 04, Active as di rected Subcutaneous 2019 Once daily (To be used with Toujeo Solostar Pen) Toujeo [facility] [id number] 300 UNIT/ML Active 30 units SoloStar subcutaneous Once daily Trazodone HCl [facility] [id number] 50 MG Orally January Active 1 -2 tablets Once a day 2019 at bedtime as needed for sleep Jardiance [facility] [id number] 25 MG Orally May 23Jun Active 1 ta blet Once a day 2018 Metformin HCl [facility] [id number] 500 MG Orally Active 1 tablet Once a day with a meal Results No Known Results Summary Purpose eClinicalWorks Submission
[2020-04-12] MEDS ORDERED: ALBUTEROL INHALER 60 PUFF/8 GM IH ONE (22:34)
[2020-04-12] MEDS ORDERED: NA CHLORIDE 0.9% 1,000 ML ONE (22:47)
[2020-04-12] MEDS ORDERED: IBUPROFEN 400 MG TAB ONE (22:47)
[2020-04-12 22:57] LABS: Absolute Lymphocytes (CBC) 0.6 K/uL (0.7-4.9); Basophils % 0.2 % (0-1.3); Hematocrit 38.8 % (36.0-45.0); Lymphocytes % 14.1 % (15.3-44.8); MPV 9.1 fL (7.6-11.3); RBC Red Blood Cell Count 5.16 M/uL (3.86-4.86)
[2020-04-12 23:07] LABS: Bilirubin Total 0.3 mg/dL (0.2-1.0); Protein, Total 7.1 g/dL (6.4-8.2)
--- NOTE | 2020-04-12 23:28 | ER ---
Nurse's Notes [facility] Name: Valarie Mace Age: 34 yrs Sex: Female : 1985 Arrival Date: 04/12/2020 Time: 22:18 Bed 6 Private MD: Diagnosis: Acute respiratory failure;Hypoxemia;Other viral pneumonia;2019-nCoV acute respiratory disease Presentation: 04/12 22:44 Chief complaint: Patient states: Reports she started having fever about a week ago. Pt ea reports she was seen at her doctors office and tested positive for Covid. Pt reports her and brother were also tested. Coronavirus screen: Patient reports a cough. Patient reports shortness of breath or difficulty breathing. Patient reports contact with known and/or suspected case of COVID-19. Prior COVID test Reports testing was done by PCP. Ebola Screen: No symptoms or risks identified at this time. Initial Sepsis Screen: Does the patient meet any 2 criteria? RR > 20 per min. Does the patient have a suspected source of infection? Yes:. Risk Assessment: Do you want to hurt yourself or someone else? Patient reports no desire to harm self or others. Onset of symptoms was April 12, 2020. 22:44 Method Of Arrival: Ambulatory ea 22:44 Acuity: MIRA 3 ea Historical: - Allergies: 04/13 00:11 Ceclor; ea 00:11 PENICILLINS; ea - Home Meds: 00:11 Metformin Oral [Active]; ea - PMHx: 00:11 gestational diabetes; ea - PSHx: 00:11 None; ea - Immunization history:: Adult Immunizations up to date. - Social history:: Smoking status: unknown. Screenin/18 22:44 Abuse screen: Denies threats or abuse. Nutritional screening: No deficits noted. ea Tuberculosis screening: No symptoms or risk factors identified. Fall Risk IV access (20 points). Assessment: 22:44 General: Appears uncomfortable, Behavior is appropriate for age. Pain: Denies pain. ea Neuro: Level of Consciousness is awake, alert, obeys commands, Oriented to person, place, time. Cardiovascular: Patient's skin is warm and dry. Respiratory: Airway is patent Respiratory effort is even, shallow, Respiratory pattern is tachypnea. Derm: Skin is dry, Skin is pale, Skin temperature is warm. 23:30 Reassessment: Patient and/or family updated on plan of care and expected duration. Pain ea level reassessed. Patient is alert, oriented x 3, equal unlabored respirations, skin warm/dry/pink. 04/13 00:00 Reassessment: Patient and/or family updated on plan of care and expected duration. Pain ea level reassessed. Patient is alert, oriented x 3, equal unlabored respirations, skin warm/dry/pink. 01:00 Reassessment: Patient and/or family updated on plan of care and expected duration. Pain ea level reassessed. Pt resting with eyes closed, respirations tachypneic, pt remains on O2 \T\ 2 L pt tolerating well. 02:30 Reassessment: Patient and/or family updated on plan of care and expected duration. Pain ea level reassessed. Patient is alert, oriented x 3, equal unlabored respirations, skin warm/dry/pink. 02:54 Reassessment: Patient and/or family updated on plan of care and expected duration. Pain ea level reassessed. Patient is alert, oriented x 3, equal unlabored respirations, skin warm/dry/pink. Pt admitted to fourth floor, left ED via wheelchair per tech. Pt on O2 at 2L per nasal cannula. Vital Signs: 04/12 22:44 BP 108 / 78; Pulse 136; Resp 30; Temp 99.8; Pulse Ox 95% on R/A; ea 23:30 BP 113 / 76; Pulse 128; Resp 24; Pulse Ox 88% ; ea 04/13 00:00 BP 102 / 70; Pulse 113; Resp 24; Temp 98.9; Pulse Ox 92% on 2 lpm NC; ea 04/12 23:30 Pt placed on 2 L of O2 sats 94% on 2L ea ED Course: 22:18 Patient arrived in ED. es 22:20 Amara Luciano, RICHARD is Primary Nurse. ea 22:21 Ector Campbell MD is Attending Physician. tw4 22:30 Inserted saline lock: 20 gauge in right antecubital area, using aseptic technique. rr5 ,using aseptic technique. inserted by amara RAMOS Blood collected. 22:44 Patient has correct armband on for positive identification. Bed in low position. Call ea light in reach. 22:47 Triage completed. ea 22:47 Arm band placed on right wrist. Patient placed in an exam room, on a stretcher, on ea pulse oximetry. 23:01 CXR XRAY In Process Unspecified. EDMS 23:25 Mike Munoz MD is Hospitalizing Provider. 04/13 00:10 No provider procedures requiring assistance completed. Patient admitted, IV remains in ea place. Administered Medications: 04/12 22:30 Drug: Albuterol HFA Inhaler 2 puffs Route: Inhalation; rr5 22:41 Drug: NS 0.9% 1000 ml Route: IV; Rate: 1 bolus; Site: right antecubital; rr5 04/13 02:55 Follow up: Response: No adverse reaction; IV Status: Completed infusion; IV Intake: ea 1000ml 04/12 22:41 Drug: Motrin 800 mg Route: PO; rr5 04/13 00:06 Follow up: Response: No adverse reaction ea Intake: 02:55 IV: 1000ml; Total: 1000ml. ea Outcome: 04/12 23:27 Decision to Hospitalize by Provider. [facility] 04/13 02:29 Instructed on the need for admit, Demonstrated understanding of instructions. ea 02:53 Admitted to Med/surg accompanied by tech, room 418, with oxygen, with chart, Report ea called to Receiving nurse on fourth floor 02:53 Condition: stable 02:55 Patient left the ED. ea Signatures: Dispatcher [employer] Christin Azevedo Elena, RN RN Ector Mckeon MD MD tw4 Davide Mazariegos RN RN rr5
--- NOTE | 2020-04-12 23:28 | EDPHYS ---
Physician Documentation [facility] Name: Valarie Mace Age: 34 yrs Sex: Female : 1985 Arrival Date: 04/12/2020 Time: 22:18 Bed 6 Private MD: ED Physician Ector Campbell HPI: 04/13 02:29 This 34 yrs old Female presents to ER via Ambulatory with complaints of SOB tw4 diagnosed with Covid. 02:29 The patient has shortness of breath at rest. Onset: The symptoms/episode began/occurred tw4 today. Duration: The symptoms are continuous, and are steadily getting worse. The patient's shortness of breath is aggravated by exertion, light activity, walking. Associated signs and symptoms: Pertinent positives: non-productive cough, diaphoresis, fever. Severity of symptoms: At their worst the symptoms were mild in the emergency department the symptoms are unchanged. The patient has not experienced similar symptoms in the past. Historical: - Allergies: 00:11 Ceclor; ea 00:11 PENICILLINS; ea - Home Meds: 00:11 Metformin Oral [Active]; ea - PMHx: 00:11 gestational diabetes; ea - PSHx: 00:11 None; ea - Immunization history:: Adult Immunizations up to date. - Social history:: Smoking status: unknown. ROS: 02:29 Constitutional: Negative for fever, chills, and weight loss, Eyes: Negative for injury, tw4 pain, redness, and discharge, Cardiovascular: Negative for chest pain, palpitations, and edema, Abdomen/GI: Negative for abdominal pain, nausea, vomiting, diarrhea, and constipation, Back: Negative for injury and pain, MS/Extremity: Negative for injury and deformity, Skin: Negative for injury, rash, and discoloration. 02:29 Respiratory: Positive for cough, dyspnea on exertion, shortness of breath, Negative for hemoptysis, orthopnea, pleurisy, sputum production. Exam: 02:29 Head/Face: Normocephalic, atraumatic. Eyes: Pupils equal round and reactive to light, tw4 extra-ocular motions intact. Lids and lashes normal. Conjunctiva and sclera are non-icteric and not injected. Cornea within normal limits. Periorbital areas with no swelling, redness, or edema. Chest/axilla: Normal chest wall appearance and motion. Nontender with no deformity. No lesions are appreciated. 02:29 Constitutional: The patient appears alert, awake, in obvious distress, mildly distressed. 02:29 Cardiovascular: Rate: tachycardic, Rhythm: regular, Pulses: Vital Signs: 04/12 22:44 BP 108 / 78; Pulse 136; Resp 30; Temp 99.8; Pulse Ox 95% on R/A; ea 23:30 BP 113 / 76; Pulse 128; Resp 24; Pulse Ox 88% ; ea 04/13 00:00 BP 102 / 70; Pulse 113; Resp 24; Temp 98.9; Pulse Ox 92% on 2 lpm NC; ea 04/12 23:30 Pt placed on 2 L of O2 sats 94% on 2L ea MDM: 22:21 Patient medically screened. 04/13 02:29 Differential diagnosis: asthma, pneumonia, pulmonary edema, Pulmonary Embolism reactive tw4 airway disease. Antibiotic administration: Not indicated. Data reviewed: vital signs, nurses notes. Data reviewed: lab test result(s), CBC, electrolytes, Flu: negative radiologic studies, plain films. Data interpreted: Pulse oximetry: Interpretation: normal. Test interpretation: by ED physician or midlevel provider: ECG, plain radiologic studies. Counseling: I had a detailed discussion with the patient and/or guardian regarding: the historical points, exam findings, and any diagnostic results supporting the discharge/admit diagnosis, lab results, radiology results. Physician consultation: Mike Munoz MD was contacted at 23:15, regarding patient's condition, and will see patient in inpatient room. 04/12 22:21 Order name: CBC with Diff 04/12 22:21 Order name: CMP 04/12 23:16 Order name: Blood Culture Adult (2) 04/12 23:16 Order name: C-Reactive Protein 04/12 23:16 Order name: COVID-19 04/12 23:16 Order name: D-Dimer 04/12 23:16 Order name: Ferritin 04/12 23:16 Order name: Flu 04/12 23:16 Order name: Lactate 04/12 23:16 Order name: Lipase 04/12 23:16 Order name: Procalcitonin 04/12 23:16 Order name: PT-INR 04/12 23:16 Order name: Ptt, Activated 04/12 23:16 Order name: Strep 04/12 23:16 Order name: Troponin (emerg Dept Use Only) 04/12 23:16 Order name: Urine Microscopic Only tw4 04/13 01:13 Order name: Throat Culture EDMS 04/13 01:38 Order name: CBC with Automated Diff EDMS 04/13 01:38 Order name: CBC with Automated Diff EDMS 04/13 01:38 Order name: Comprehensive Metabolic Panel EDMS 04/13 01:38 Order name: Comprehensive Metabolic Panel EDMS 04/13 01:38 Order name: Lactate EDMS 04/13 01:38 Order name: Lactate EDMS 04/13 01:38 Order name: Lipid Profile EDMS 04/13 01:38 Order name: Lipid Profile EDMS 04/13 01:38 Order name: Magnesium EDMS 04/13 01:38 Order name: Magnesium EDMS 04/12 22:21 Order name: CXR XRAY 04/12 23:16 Order name: EKG; Complete Time: 23:17 04/12 23:16 Order name: Cardiac monitoring; Complete Time: 00:06 04/12 23:16 Order name: Document PUI#; Complete Time: 00:06 04/12 23:16 Order name: Droplet/Contact Precautions; Complete Time: 00:06 04/12 23:16 Order name: EKG - Nurse/Tech; Complete Time: 00:06 04/12 23:16 Order name: IV Start; Complete Time: 00:06 04/12 23:16 Order name: Labs collected and sent; Complete Time: 00:06 04/12 23:16 Order name: O2 Per Protocol; Complete Time: 00:06 04/12 23:16 Order name: O2 Sat Monitoring; Complete Time: 00:06 04/13 01:38 Order name: CONS Physician Consult EDMS 04/13 01:38 Order name: Regular EDMS 04/13 01:38 Order name: NT PRO-BNP EDMS 04/13 01:38 Order name: NT PRO-BNP EDMS 04/13 01:38 Order name: Phosphorus EDMS 04/13 01:38 Order name: Phosphorus EDMS EC:29 Rate is 116 beats/min. Rhythm is regular. QRS [place] is Normal. [place] interval is normal. tw4 QRS interval is normal. QT interval is normal. No Q waves. T waves are Normal. No ST changes noted. Clinical impression: Sinus tachycardia. Interpreted by me. Reviewed by me. Administered Medications: 04/12 22:30 Drug: Albuterol HFA Inhaler 2 puffs Route: Inhalation; rr5 22:41 Drug: NS 0.9% 1000 ml Route: IV; Rate: 1 bolus; Site: right antecubital; rr5 04/13 02:55 Follow up: Response: No adverse reaction; IV Status: Completed infusion; IV Intake: ea 1000ml 04/12 22:41 Drug: Motrin 800 mg Route: PO; rr5 04/13 00:06 Follow up: Response: No adverse reaction ea Disposition: 04/12/20 23:27 Hospitalization ordered by Mike Munoz for Inpatient Admission. Preliminary diagnosis are Acute respiratory failure, Hypoxemia, Other viral pneumonia, 2018-nCoV acute respiratory disease. - Bed requested for Telemetry/MedSurg (Inpatient). - Status is Inpatient Admission. ea - Condition is Stable. - Problem is new. - Symptoms are unchanged. Signatures: Dispatcher [employer] [facility] Steph Moctezuma RN RN dw Antunez, Elena, RN RN ea Wadley, Terrence, MD MD tw4 Davide Mazariegos RN RN rr5 Corrections: (The following items were deleted from the chart) 04/12 23:28 23:17 BASIC METABOLIC PANEL+C.LAB.BRZ ordered. [facility] 23:29 23:17 CBC+H.LAB.BRZ ordered. [facility] 23:29 23:17 HEPATIC FUNCTION+C.LAB.BRZ ordered. [facility] 04/13 02:16 04/12 23:27 Hospitalization Ordered by Mike Munoz MD for Inpatient Admission. dw Preliminary diagnosis is Acute respiratory failure; Hypoxemia; Other viral pneumonia; 2019-nCoV acute respiratory disease. Bed requested for Telemetry/MedSurg (Inpatient). Status is Inpatient Admission. Condition is Stable. Problem is new. Symptoms are unchanged. tw4 04/13 02:55 02:16 04/12/2020 23:27 Hospitalization Ordered by Mike Munoz MD for Inpatient ea Admission. Preliminary diagnosis is Acute respiratory failure; Hypoxemia; Other viral pneumonia; 2019-nCoV acute respiratory disease. Bed requested for Telemetry/MedSurg (Inpatient). Status is Inpatient Admission. Condition is Stable. Problem is new. Symptoms are unchanged. dw
[2020-04-13 00:02] LABS: Ferritin 51.8 ng/mL (8-388); Lipase 123 U/L (73-393); Troponin (Emerg Dept Use Only) < 0.02 ng/mL (0.0-0.045)
[2020-04-13 00:10] LABS: Protime INR 1.23
[2020-04-13] MEDS ORDERED: ONDANSETRON 4 MG/2 ML VIAL IV PRN (01:30)
[2020-04-13] MEDS ORDERED: D50W 25 GM/50 ML SYRINGE/VIAL IV PRN (01:35)
[2020-04-13] MEDS ORDERED: GLUCAGON 1 MG/VIAL IM PRN (01:35)
[2020-04-13] MEDS ORDERED: NA CHLORIDE 0.9% 1,000 ML IV SCH (02:00)
[2020-04-13] MEDS ORDERED: AZITHROMYCIN IV 500 MG in NA CHLORIDE 0.9% 250 ML IVPB SCH ×2 (03:00→21:00)
[2020-04-13] MEDS ORDERED: ALBUTEROL INHALER 60 PUFF/8 GM IH SCH (03:00)
[2020-04-13] MEDS ORDERED: AZITHROMYCIN 500 MG INJ IVPB ONE (03:04)
[2020-04-13] MEDS ORDERED: NA CHLORIDE 0.9% 250 ML ONE (03:05)
[2020-04-13] MEDS ORDERED: POTASSIUM 25 MEQ EFFERV TAB PO ONE ×2 (03:09→11:44)
[2020-04-13 03:31] VITALS: BMI 38.0
[2020-04-13] MEDS ORDERED: dexAMETHasone 10 MG/ML VIAL IV SCH (06:00)
[2020-04-13] MEDS ORDERED: INSULIN GLARGINE 100 UNITS/ML SQ SCH (06:00)
--- NOTE | 2020-04-13 06:38 | EKG ---
Test Date: 2020-04-13 Test Time: 00:01:18 Vending Machine Mechanic: RR MEASUREMENT RESULTS: Intervals: Rate: 116 IA: 132 QRSD: 84 QT: 326 QTc: 453 [place]: P: 27 IA: 132 QRS: 3 T: 2 INTERPRETIVE STATEMENTS: Sinus tachycardia Nonspecific T wave abnormality Abnormal ECG Compared to ECG 05/17/2019 17:52:31 T-wave abnormality now present Electronically Signed On 04-13-20 06:37:24 CDT by Jae Thayer
--- NOTE | 2020-04-13 07:48 | RAD REPORT ---
EXAM DESCRIPTION: RAD - Chest Single View - 04/12/2020 11:01 pm CLINICAL HISTORY: SOB COMPARISON: None TECHNIQUE: AP portable chest image was obtained 04/12/2020 11:01 pm . FINDINGS: Lung volumes are low. Airspace opacification is present at the right base and in the mid l eft lung field. Heart size normal range. Vasculature within normal limits for shallow inspiration, po rtable imaging and large body habitus affects. No measurable pleural effusion and no pneumothorax. No acute bony abnormality seen. No acute aortic findings suspected. IMPRESSION: Limited shallow inspiration portable imaging shows evidence for bilateral pneumonia incl uding possible COVID-19 pneumonia.
[2020-04-13] MEDS ORDERED: INSULIN LISPRO 100 UNIT/1 ML SQ SCH (08:00)
[2020-04-13] MEDS: ALBUTEROL INHALER 60 PUFF/8 GM IH SCH ×2 (08:00)
--- NOTE | 2020-04-13 09:23 | P.HP ---
Certification for Inpatient Patient admitted to: Inpatient With expected LOS: >2 Midnights Patient will require the following post-hospital care: None Practitioner: I am a practitioner with admitting privileges, knowledge of patient current condition, hospital course, and medical plan of care. Services: Services provided to patient in accordance with Admission requirements found in Title 42 Section 412.3 of the Code of Federal Regulations Patient History Date of Service: 04/13/20 Reason for admission: COVID-19 pneumonia with hypoxemia History of Present Illness: Patient is a 34-year-old female who presents to the emergency room with shortness of breath and hypoxemia. Patient was seen by PCP recently. I am not sure if this was a telemedicine visit or an in-person visit. Patient had COVID- 19 test performed which came back positive. Patient short of breath and oxygen saturations are 90% room air. Will go ahead and admit patient to the hospital and start on oxygen as well as Decadron. Patient will be admitted to the hospital for further evaluation. Allergies cefaclor [From Ceclor] Adverse Reaction (Verified 04/13/20 05:00) Hives/Rash Penicillins Adverse Reaction (Verified 04/13/20 05:00) Hives/Rash Home Medications: Metformin HCl [Glucophage*] 500 mg PO DAILY WITH BREAKFAST #30 tab 05/20/19 Empagliflozin [Jardiance] 25 mg PO DAILY 04/13/20 Insulin Glargine,Hum.rec.anlog [Claritza Tse] 30 units SQ DAILY 04/13/20 PARoxetine HCL [Paxil*] 10 mg PO DAILY 04/13/20 - Past Medical/Surgical History Has patient received pneumonia vaccine in the past: No Diabetic: Yes -: gestational diabetes -: preeclampsia Past Surgical History: Patient denies surgical history Psychosocial/ Personal History: Patient is single. She has 3 children. 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 - Family History Father Medical History: Hypertension, Diabetes Brother Medical History: Diabetes Sister Medical History: Diabetes Mother Medical History: Liver disease Notes: from alcoholic cirrhosis - Social History Smoking Status: Never smoker Alcohol use: Yes CD- Drugs: No Caffeine use: No Place of Residence: Home Review of Systems 10-point ROS is otherwise unremarkable Physical Examination - Vital Signs Temperature: 97.6 F Blood Pressure: 114/70 Pulse: 98 Respirations: 18 Pulse Ox (%): 99 - Physical Exam General: Alert, In no apparent distress, Oriented x3 HEENT: Atraumatic, PERRLA, Mucous membr. moist/pink, EOMI, Sclerae nonicteric Neck: Supple, 2+ carotid pulse no bruit, No LAD, Without JVD or thyroid abnormality Respiratory: Clear to auscultation bilaterally, Normal air movement Cardiovascular: Regular rate/rhythm, Normal S1 S2, No murmurs Gastrointestinal: Normal bowel sounds, Soft and benign, Non-distended, No tenderness Musculoskeletal: No clubbing, No swelling, No tenderness Integumentary: No rashes Neurological: Normal gait, Normal speech, Normal strength at 5/5 x4 extr, Normal tone, Sensation intact, Cranial nerves 3-12 intact, Normal affect Lymphatics: No axilla or inguinal lymphadenopathy - Studies Laboratory Data (last 24 hrs) 04/12/20 23:40: PT 14.4 H, INR 1.23, APTT 32.6 04/12/20 23:16: WBC Cancelled, Hgb Cancelled, Hct Cancelled, Plt Count Cancelled 04/12/20 22:30: Sodium Cancelled, Potassium Cancelled, BUN Cancelled, Creatinine Cancelled, Glucose Cancelled, Total Bilirubin Cancelled, AST Cancelled, ALT Cancelled, Alkaline Phosphatase Cancelled, Lipase 123 04/12/20 22:30: Sodium 140, Potassium 3.0 L, BUN 13, Creatinine 0.84, Glucose 169 H, Total Bilirubin 0.3, AST 34, ALT 52, Alkaline Phosphatase 91 04/12/20 22:30: WBC 4.4, Hgb 12.0, Hct 38.8, Plt Count 192 Microbiology Data (last 24 hrs): 04/12/20 23:40 Throat Group A Streptococcus Rapid Screen - Final 04/12/20 23:40 Nasopharnyx Influenza Type A Antigen Screen - Final 04/12/20 23:40 Nasopharnyx Influenza Type B Antigen Screen - Final Assessment & Plan - Problems (Diagnosis) (1) Pneumonia due to COVID-19 virus Current Visit: Yes Status: Acute (2) Hypoxemia Current Visit: Yes Status: Acute (3) Dyspnea Current Visit: Yes Status: Acute - Plan 1. Continue with IV antibiotics 2. IV Decadron therapy 3. Repeat chest x-ray 4. Will proceed with CT scan of the chest if pneumonia is not improved 5. Pulmonary consultation 6. Continue with nebs or albuterol inhaler therapy as needed 7. O2 per protocol 8. Continue with gentle hydration 9. Repeat labs including CBC and renal function in a.m. 10. GI and DVT prophylaxis Discharge Plan: Home Plan to discharge in: Greater than 2 days - Advance Directives Does patient have a Living Will: No Does patient have a Durable POA for Healthcare: No - Code Status/Comfort Care Code Status Assessed: Yes Code Status: Full Code Critical Care: No Time Spent Managing PTS Care (In Minutes): 45
[2020-04-13] MEDS: ENOXAPARIN 40 MG/0.4 ML SQ SCH ×2 (10:08→20:41)
[2020-04-13] MEDS: ACETAMINOPHEN 500 MG TAB PO PRN ×3 (10:09→20:40)
[2020-04-13] MEDS: PARoxetine HCL 10 MG TAB PO SCH (10:09)
[2020-04-13] MEDS: INSULIN GLARGINE 100 UNITS/ML SQ SCH ×2 (10:11→12:03)
[2020-04-13 11:05] LABS: Potassium 3.6 mmol/L (3.5-5.1)
[2020-04-13] MEDS: dexAMETHasone 4 MG/ML VIAL IV SCH ×2 (11:59→16:57)
--- NOTE | 2020-04-13 13:30 | P.CNS ---
Date of Consult: 04/13/20 Reason for Consult: Pneumonia weber virus positive Chief Complaint: COVID-19 pneumonia with hypoxemia History of Present Illness: Patient is 34 years of age presented with weber virus infection shortness of breath hypoxemia she is hypoxic doing well Allergies cefaclor [From Ceclor] Adverse Reaction (Verified 04/13/20 05:00) Hives/Rash Penicillins Adverse Reaction (Verified 04/13/20 05:00) Hives/Rash Home Medications: Metformin HCl [Glucophage*] 500 mg PO DAILY WITH BREAKFAST #30 tab 05/20/19 Empagliflozin [Jardiance] 25 mg PO DAILY 04/13/20 Insulin Glargine,Hum.rec.anlog [Toujeo Solostar] 30 units SQ DAILY 04/13/20 PARoxetine HCL [Paxil*] 10 mg PO DAILY 04/13/20 - Past Medical/Surgical History Diabetic: Yes -: gestational diabetes -: preeclampsia Psychosocial/ Personal History: Patient is single. She has 3 children. 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 - Family History Father Medical History: Hypertension, Diabetes Brother Medical History: Diabetes Sister Medical History: Diabetes Mother Medical History: Liver disease Notes: from alcoholic cirrhosis - Social History Smoking Status: Unknown if ever smoked Alcohol use: Yes CD- Drugs: No Caffeine use: No Place of Residence: Home Review of Systems Deferred Physical Examination Temp Pulse Resp BP Pulse Ox 101.1 F H 131 H 20 123/72 94 04/13/20 12:00 04/13/20 12:00 04/13/20 12:00 04/13/20 12:00 04/13/20 12:00 General: Other (Deferred) Laboratory Data (last 24 hrs) 04/12/20 23:40: PT 14.4 H, INR 1.23, APTT 32.6 04/12/20 23:16: WBC Cancelled, Hgb Cancelled, Hct Cancelled, Plt Count Cancelled 04/12/20 22:30: Sodium Cancelled, Potassium Cancelled, BUN Cancelled, Creatinine Cancelled, Glucose Cancelled, Total Bilirubin Cancelled, AST Cancelled, ALT Cancelled, Alkaline Phosphatase Cancelled, Lipase 123 04/12/20 22:30: Sodium 140, Potassium 3.0 L, BUN 13, Creatinine 0.84, Glucose 169 H, Total Bilirubin 0.3, AST 34, ALT 52, Alkaline Phosphatase 91 04/12/20 22:30: WBC 4.4, Hgb 12.0, Hct 38.8, Plt Count 192 - Problems (1) Pneumonia due to COVID-19 virus Current Visit: Yes Status: Acute Plan: Patient is 34 years of age admitted with norovirus induced pneumonia continue with steroid low-dose diuretics change to p.o. levofloxacin patient is afebrile in no significant respiratory distress continue to monitor rib consider BiPAP and Redesmir avoid any bronchodilators on nebulizers
[2020-04-13] MEDS: levoFLOXacin 500 MG TAB PO SCH (14:19)
[2020-04-13] MEDS ORDERED: PNEUMOCOCCAL VACCINE 0.5 ML IMVAC ONE (15:00)
[2020-04-13 22:05] LABS: Urine Appearance CLEAR; Urine Bilirubin NEGATIVE (NEG); Urine Blood TRACE (NEG); Urine Color YELLOW; Urine Glucose 3+ (NEG); Urine Protein TRACE (NEG); Urine Specific Gravity >=1.030 (1.005-1.030); Urine Urobilinogen 0.2 mg/dL (0.2-1.0)
[2020-04-13 22:06] LABS: Urine Microscopic Reflex ORDER UMIC
[2020-04-13 22:11] LABS: Specific Gravity >= 1.030 (1.005-1.030)
[2020-04-13 22:27] LABS: Urine Bacteria 20-50 /HPF (<20); Urine Culture Reflex Order REFLEXED
[2020-04-14] MEDS: dexAMETHasone 4 MG/ML VIAL IV SCH ×4 (00:25→17:04)
[2020-04-14] MEDS: ACETAMINOPHEN 500 MG TAB PO PRN ×2 (05:10→17:40)
[2020-04-14 06:38] LABS: Absolute Lymphocytes (CBC) 0.5 K/uL (0.7-4.9); Basophils % 0.2 % (0-1.3); Lymphocytes % 11.6 % (15.3-44.8); MPV 8.5 fL (7.6-11.3); RBC Red Blood Cell Count 4.77 M/uL (3.86-4.86)
[2020-04-14 06:51] LABS: ALT/SGPT 63 U/L (12-78); AST/SGOT 40 U/L (15-37); Albumin 2.7 g/dL (3.4-5.0); Alkaline Phosphatase 89 U/L (45-117); BUN Blood Urea Nitrogen 10 mg/dL (7-18); Bicarbonate 25 mmol/L (21-32); Bilirubin Total 0.4 mg/dL (0.2-1.0); Glucose Level 248 mg/dL (74-106); Magnesium 2.2 mg/dL (1.8-2.4); NT PRO-BNP 20 pg/mL (<125); Phosphorus 2.2 mg/dL (2.5-4.9); Potassium 4.1 mmol/L (3.5-5.1); Protein, Total 6.6 g/dL (6.4-8.2); Sodium Level 139 mmol/L (136-145)
[2020-04-14] MEDS ORDERED: Remdesivir 200 MG in NA CHLORIDE 0.9% 250 ML IV ONE (07:15)
[2020-04-14] MEDS: ENOXAPARIN 40 MG/0.4 ML SQ SCH ×2 (07:56→20:14)
[2020-04-14] MEDS: METFORMIN HCL 500 MG TAB PO SCH (07:56)
[2020-04-14] MEDS: PARoxetine HCL 10 MG TAB PO SCH (07:56)
[2020-04-14] MEDS: levoFLOXacin 500 MG TAB PO SCH (07:57)
[2020-04-14] MEDS: INSULIN GLARGINE 100 UNITS/ML SQ SCH (07:58)
[2020-04-14] MEDS ORDERED: NA CHLORIDE 0.9% 250 ML ONE (10:10)
[2020-04-14] MEDS: GUAIFENESIN 600 MG SA TAB PO SCH ×2 (10:14→20:14)
[2020-04-14] MEDS: POTASS/SODIUM PHOSPHATE 1 PKT POWD.PACK PO SCH ×3 (10:38→13:55)
--- NOTE | 2020-04-14 15:20 | P.PN ---
Subjective Date of Service: 04/14/20 Chief Complaint: COVID-19 pneumonia with hypoxemia Subjective: Other (Patient requiring more oxygen. Decrease overall ambulation) Physical Examination - Vital Signs Temperature: 99.0 F Blood Pressure: 118/70 Pulse: 111 Respirations: 22 Pulse Ox (%): 93 - Physical Exam General: Alert, Other (Patient with increased fatigue) HEENT: Atraumatic Neck: Supple Respiratory: Crackles/rales (Crackles to the bases), Other (Poor inspiration and expiration) Cardiovascular: Abnormal pulses (Sinus tachycardia) Gastrointestinal: No tenderness, No masses, No rebound, No guarding Neurological: Normal speech, Normal strength at 5/5 x4 extr, Normal tone, Normal affect - Studies Medications List Reviewed: Yes Assessment & Plan Discharge Plan: Home Plan to discharge in: 72 Hours Physician Review Additional Text: Impression: Bilateral viral pneumonia positive for COVID 19 infection 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 Patient on higher dose DVT prophylaxis. Patient agrees for convalescent plasma. This has been initiated. Case discussed at length with pulmonology. Pulmonology plans to provide BiPAP due to possible atelectasis. Encourage incentive spirometer. Encourage ambulation. Continue other home medication. Will provide medication for cough and congestion. Will need to monitor closely. Will need to consider Remdesivir symptoms worsen. Time Spent Managing Pts Care (In Minutes): 55
[2020-04-14] MEDS: INSULIN -REGULAR HUMAN 50 UNIT/0.5 ML ML SQ SCH ×2 (16:30→20:16)
[2020-04-14] MEDS ORDERED: ACETAMINOPHEN 500 MG TAB PO ONE (20:00)
[2020-04-14] MEDS: BENZONATATE 100 MG CAP PO PRN (20:14)
[2020-04-15] MEDS: dexAMETHasone 4 MG/ML VIAL IV SCH ×4 (00:10→17:08)
[2020-04-15] MEDS: BENZONATATE 100 MG CAP PO PRN (05:03)
[2020-04-15 05:09] LABS: BUN Blood Urea Nitrogen 12 mg/dL (7-18); Bicarbonate 29 mmol/L (21-32); Glucose Level 260 mg/dL (74-106); Potassium 3.9 mmol/L (3.5-5.1); Sodium Level 140 mmol/L (136-145)
[2020-04-15] MEDS ORDERED: POTASSIUM CL SA 10 MEQ TAB PO ONE (06:07)
[2020-04-15 06:11] LABS: Phosphorus 2.9 mg/dL (2.5-4.9)
[2020-04-15] MEDS ORDERED: FUROSEMIDE 20 MG/ 2ML VIAL IV ONE (07:48)
[2020-04-15] MEDS ORDERED: FUROSEMIDE 20 MG/ 2ML VIAL IV STA (07:50)
[2020-04-15] MEDS: GUAIFENESIN 600 MG SA TAB PO SCH ×2 (08:11→20:04)
[2020-04-15] MEDS: PARoxetine HCL 10 MG TAB PO SCH (08:11)
[2020-04-15] MEDS: ENOXAPARIN 40 MG/0.4 ML SQ SCH ×2 (08:11→20:03)
[2020-04-15] MEDS: METFORMIN HCL 500 MG TAB PO SCH (08:11)
[2020-04-15] MEDS: levoFLOXacin 500 MG TAB PO SCH (08:11)
[2020-04-15] MEDS: INSULIN -REGULAR HUMAN 50 UNIT/0.5 ML ML SQ SCH ×4 (08:12→21:14)
[2020-04-15] MEDS: INSULIN GLARGINE 100 UNITS/ML SQ SCH (08:13)
[2020-04-15 09:08] LABS: ALT/SGPT 73 U/L (12-78); AST/SGOT 55 U/L (15-37); Alkaline Phosphatase 96 U/L (45-117); BUN Blood Urea Nitrogen 11 mg/dL (7-18); Bicarbonate 27 mmol/L (21-32); Bilirubin Total 0.4 mg/dL (0.2-1.0); Glucose Level 233 mg/dL (74-106); Potassium 3.9 mmol/L (3.5-5.1); Protein, Total 7.7 g/dL (6.4-8.2); Sodium Level 138 mmol/L (136-145)
--- NOTE | 2020-04-15 09:30 | P.PN ---
Subjective Date of Service: 04/15/20 Chief Complaint: COVID-19 pneumonia with hypoxemia Patient required more oxygen last night and early on BiPAP desat on minimal exertion otherwise alert the tachycardic Review of Systems is unable to be obtained Physical Examination - Vital Signs Temperature: 98.5 F Blood Pressure: 115/73 Pulse: 119 Respirations: 38 Pulse Ox (%): 92 - Physical Exam General: Alert, Moderate distress - Studies Microbiology Data (last 24 hrs): 04/12/20 23:40 Throat Culture & Sensitivity - Final NORMAL UPPER RESPIRATORY ADA GROWN. Medications List Reviewed: Yes Assessment & Plan - Problems (Diagnosis) (1) Pneumonia due to COVID-19 virus Current Visit: Yes Status: Acute Plan: Patient is 34 years of age admitted with a weber virus pneumonia patient required more oxygen plan to increase her BiPAP settings for white her with more expiratory pressure IV Lasix increase Decadron patient was also given redesmir and convalescent plasma continue to monitor for now up on the floor if if her condition deteriorates transfer to the ICU continue negative fluid balance Decadron dose increased some fever yesterday tachycardic
[2020-04-15] MEDS: ACETAMINOPHEN 500 MG TAB PO PRN (21:33)
[2020-04-16] MEDS: dexAMETHasone 4 MG/ML VIAL IV SCH ×4 (00:09→23:52)
--- NOTE | 2020-04-16 01:26 | P.PN ---
Subjective Date of Service: 04/15/20 Patient is tachypneic this morning. FiO2 increased. continue with BiPAP support. Continue inhaler therapy as well. Review of Systems 10-point ROS is otherwise unremarkable Physical Examination - Vital Signs Temperature: 98.3 F Blood Pressure: 117/71 Pulse: 98 Respirations: 38 Pulse Ox (%): 95 - Physical Exam General: Alert, In no apparent distress, Oriented x3 Respiratory: Diminished, Expiratory wheezes Cardiovascular: Regular rate/rhythm, Normal S1 S2, No murmurs Gastrointestinal: Normal bowel sounds, Soft and benign, Non-distended, No tenderness Musculoskeletal: No clubbing, No swelling, No tenderness - Studies Microbiology Data (last 24 hrs): 04/12/20 23:40 Throat Culture & Sensitivity - Final NORMAL UPPER RESPIRATORY ADA GROWN. Medications List Reviewed: Yes Assessment & Plan - Problems (Diagnosis) (1) Pneumonia due to COVID-19 virus Current Visit: Yes Status: Acute (2) Hypoxemia Current Visit: Yes Status: Acute (3) Dyspnea Current Visit: Yes Status: Acute - Plan 1. Continue with IV antibiotics 2. IV Decadron therapy; will go ahead and add remdesivir 3. Repeat chest x-ray 4. Continue weaning off BIPAP 5. Pulmonary consultation appreciated 6. Continue with albuterol inhaler therapy as needed 7. O2 per protocol 8. Diurese patient 9. Repeat labs including CBC and renal function in a.m. 10. GI and DVT prophylaxis Discharge Plan: Home Plan to discharge in: Greater than 2 days - Advance Directives Does patient have a Living Will: No Does patient have a Durable POA for Healthcare: No - Code Status/Comfort Care Code Status: Full Code Critical Care: No Time Spent Managing PTS Care (In Minutes): 30
[2020-04-16 04:12] LABS: Absolute Lymphocytes (CBC) 0.5 K/uL (0.7-4.9); Basophils % 0.1 % (0-1.3); Hematocrit 35.6 % (36.0-45.0); Lymphocytes % 7.5 % (15.3-44.8); MPV 8.7 fL (7.6-11.3); RBC Red Blood Cell Count 4.75 M/uL (3.86-4.86)
[2020-04-16 04:35] LABS: BUN Blood Urea Nitrogen 20 mg/dL (7-18); Bicarbonate 27 mmol/L (21-32); Glucose Level 285 mg/dL (74-106); Magnesium 1.9 mg/dL (1.8-2.4); Potassium 4.2 mmol/L (3.5-5.1); Sodium Level 139 mmol/L (136-145)
[2020-04-16 05:35] LABS: Blood Morphology Comment NOTED (NOT SEEN); Platelet Estimate ADEQ; Teardrop Cell 2+
--- NOTE | 2020-04-16 07:29 | P.PN ---
Subjective Date of Service: 04/16/20 Clinically doing better. FiO2 requirements have gone down. Labs are stable. No evidence of organ failure. Hopefully her FiO2 requirements continued to improve. Pulmonary consultation appreciated. Review of Systems 10-point ROS is otherwise unremarkable Physical Examination - Vital Signs Temperature: 97.2 F Blood Pressure: 110/70 Pulse: 89 Respirations: 34 Pulse Ox (%): 94 - Physical Exam General: Alert, In no apparent distress, Oriented x3 Respiratory: Diminished, Expiratory wheezes Cardiovascular: Regular rate/rhythm, Normal S1 S2 Gastrointestinal: Normal bowel sounds, Soft and benign, No tenderness Musculoskeletal: No tenderness Integumentary: No rashes Neurological: Normal speech, Normal tone, Normal affect Lymphatics: No axilla or inguinal lymphadenopathy - Studies Microbiology Data (last 24 hrs): 04/12/20 23:40 Throat Culture & Sensitivity - Final NORMAL UPPER RESPIRATORY ADA GROWN. Medications List Reviewed: Yes Assessment & Plan - Problems (Diagnosis) (1) Pneumonia due to COVID-19 virus Current Visit: Yes Status: Acute (2) Hypoxemia Current Visit: Yes Status: Acute (3) Dyspnea Current Visit: Yes Status: Acute - Plan 1. Continue with IV antibiotics 2. IV Decadron therapy; will go ahead and add remdesivir 3. Repeat chest x-ray 4. Continue weaning off BIPAP 5. Pulmonary consultation appreciated 6. Continue with albuterol inhaler therapy as needed 7. O2 per protocol 8. Diurese patient 9. Repeat labs including CBC and renal function in a.m. 10. GI and DVT prophylaxis - Advance Directives Does patient have a Living Will: No Does patient have a Durable POA for Healthcare: No - Code Status/Comfort Care Code Status: Full Code
[2020-04-16] MEDS: levoFLOXacin 500 MG TAB PO SCH (08:16)
[2020-04-16] MEDS: INSULIN -REGULAR HUMAN 50 UNIT/0.5 ML ML SQ SCH ×4 (08:16→21:02)
[2020-04-16] MEDS: GUAIFENESIN 600 MG SA TAB PO SCH ×2 (08:16→19:54)
[2020-04-16] MEDS: METFORMIN HCL 500 MG TAB PO SCH (08:16)
[2020-04-16] MEDS: INSULIN GLARGINE 100 UNITS/ML SQ SCH ×2 (08:16→09:20)
[2020-04-16] MEDS: ENOXAPARIN 40 MG/0.4 ML SQ SCH ×2 (08:17→19:54)
[2020-04-16] MEDS: PARoxetine HCL 10 MG TAB PO SCH (08:17)
[2020-04-16] MEDS: Remdesivir 100 MG in NA CHLORIDE 0.9% 250 ML IV SCH (08:18)
[2020-04-16] MEDS: FUROSEMIDE 20 MG/ 2ML VIAL IV SCH (09:19)
[2020-04-16] MEDS: SPIRONOLACTONE 25 MG TABLET PO SCH (09:19)
--- NOTE | 2020-04-16 12:46 | P.PN ---
Subjective Date of Service: 04/16/20 Chief Complaint: COVID-19 pneumonia with hypoxemia Condition stable oxygen requirements are decreasing currently on 45% FiO2 still has desaturation on minimal exertion no fever Review of Systems History obtained from nurse Physical Examination - Vital Signs Temperature: 98.4 F Blood Pressure: 116/73 Pulse: 107 Respirations: 19 Pulse Ox (%): 92 - Physical Exam General: Other (Examination deferred) - Studies Microbiology Data (last 24 hrs): 04/12/20 23:40 Throat Culture & Sensitivity - Final NORMAL UPPER RESPIRATORY ADA GROWN. Medications List Reviewed: Yes Assessment & Plan - Problems (Diagnosis) (1) Pneumonia due to COVID-19 virus Current Visit: Yes Status: Acute Plan: Patient admitted with weber virus pneumonia and ARDS is clinically improving/patient is on Resdesmir, received convalescent plasma and a higher doses of steroids continue low-dose Lasix and spironolactone maintain a negative fluid balance increased dose of insulin
[2020-04-16 17:41] LABS: ALT/SGPT 80 U/L (12-78); AST/SGOT 43 U/L (15-37); Albumin 2.8 g/dL (3.4-5.0); Alkaline Phosphatase 94 U/L (45-117); Bilirubin Direct < 0.1 mg/dL (0-0.2); Bilirubin Total 0.3 mg/dL (0.2-1.0); Protein, Total 7.2 g/dL (6.4-8.2)
[2020-04-17 05:37] LABS: ALT/SGPT 68 U/L (12-78); AST/SGOT 26 U/L (15-37); Albumin 2.7 g/dL (3.4-5.0); Alkaline Phosphatase 83 U/L (45-117); BUN Blood Urea Nitrogen 23 mg/dL (7-18); Bicarbonate 28 mmol/L (21-32); Bilirubin Direct < 0.1 mg/dL (0-0.2); Bilirubin Total 0.4 mg/dL (0.2-1.0); Glucose Level 280 mg/dL (74-106); Potassium 4.2 mmol/L (3.5-5.1); Protein, Total 6.6 g/dL (6.4-8.2); Sodium Level 140 mmol/L (136-145)
[2020-04-17] MEDS: INSULIN -REGULAR HUMAN 50 UNIT/0.5 ML ML SQ SCH ×4 (07:30→21:59)
[2020-04-17] MEDS: METFORMIN HCL 500 MG TAB PO SCH (07:48)
[2020-04-17] MEDS: PARoxetine HCL 10 MG TAB PO SCH (07:49)
[2020-04-17] MEDS: levoFLOXacin 500 MG TAB PO SCH (07:49)
[2020-04-17] MEDS: dexAMETHasone 4 MG/ML VIAL IV SCH ×4 (07:50→23:56)
[2020-04-17] MEDS: GUAIFENESIN 600 MG SA TAB PO SCH ×2 (07:51→20:18)
[2020-04-17] MEDS: ENOXAPARIN 40 MG/0.4 ML SQ SCH ×2 (07:51→20:18)
[2020-04-17] MEDS: Remdesivir 100 MG in NA CHLORIDE 0.9% 250 ML IV SCH (07:52)
--- NOTE | 2020-04-17 08:56 | P.PN ---
Subjective Date of Service: 04/17/20 Chief Complaint: COVID-19 pneumonia with hypoxemia Stable tolerating nasal cannula oxygen with intermittent BiPAP use Review of Systems is unable to be obtained Physical Examination - Vital Signs Temperature: 99.0 F Blood Pressure: 119/75 Pulse: 100 Respirations: 24 Pulse Ox (%): 95 (To for) - Studies Medications List Reviewed: Yes Assessment & Plan - Problems (Diagnosis) (1) Pneumonia due to COVID-19 virus Current Visit: Yes Status: Acute Plan: Patient's condition is stable decrease the dose of Decadron no fever labs reviewed
[2020-04-17] MEDS: SPIRONOLACTONE 25 MG TABLET PO SCH (09:00)
[2020-04-17] MEDS: FUROSEMIDE 20 MG/ 2ML VIAL IV SCH (09:00)
[2020-04-17] MEDS: INSULIN GLARGINE 100 UNITS/ML SQ SCH (09:00)
--- NOTE | 2020-04-17 10:06 | RAD REPORT ---
EXAM DESCRIPTION: RAD - Chest Single View - 04/17/2020 9:52 am CLINICAL HISTORY: Follow for pneumonia, shortness of breath COMPARISON: Portable April 12 TECHNIQUE: AP portable chest image was obtained 04/17/2020 9:52 am . FINDINGS: Lung volumes remain low. Interstitial and alveolar opacities are present but there has bee n significant improvement in the severity of bilateral airspace disease. Heart size is stable. Vascul ature within normal limits. Trachea is midline. No measurable pleural effusion and no pneumothorax. N o acute bony abnormality seen. No acute aortic findings suspected. IMPRESSION: Interstitial and alveolar opacification present but showing substantial improvement from April 12.
--- NOTE | 2020-04-17 13:31 | PN ---
Date of Progress Note: 04/17/2020 Subjective: Patient seen through the window of room door. Case discussed with Dr. Jimenez with Pulmonology. Patient seems to be doing okay, still on BiPAP. Medications list reviewed. Based on current COVID-19 outbreak, current CDC state, local, and [facility] guidance for social distancing and self-isolation of COVID positive patients. Patient was identified for the need for telehealth service. Patient was offered telehealth medicine services. The risks, benefits, and alternatives through this virtual video visit were explained to the patient and the patient consented to this modality of care. Visit was carried out using the secure line. All parties in the room were identified and approved by the patient prior to the consult. No technical issues were experienced. Level of care equivalent to in- person care was achieved. Physical Examination: Vital Signs: Temperature 97.9, heart rate 103, blood pressure 124/82, respirations 22, O2 91% on BiPAP with 45% FiO2. General: Awake, alert, oriented x3, ill-appearing female, in some mild respiratory distress. Obese. Respiratory: Patient is tachypneic with use of accessory muscles with supplemental oxygen in place. Neuro: No focal neurological deficits. Moves all 4 extremities. Speech is normal. No facial asymmetry. Psych: Mood is okay. Affect is full. Insight and judgment are good. Laboratory Data: Sodium 140, potassium 4.2, chloride 106, CO2 of 28, BUN 23, creatinine 0.53, glucose 280, calcium 8.8, AST 26, ALT 68, albumin 2.7. WBC pending. Urine culture growing out mixed talisha. Blood cultures are negative to date. Throat culture growing normal upper respiratory talisha. Influenza screen is negative. Chest x-ray personally reviewed shows interstitial and alveolar opacification present, but showing substantial improvement from April 12. Assessment: A 34-year-old female with: 1. Coronavirus disease 2019 pneumonia. Patient has been afebrile. Has received convalescent plasma 1 unit and was started on remdesivir. She is also on IV Decadron therapy. Repeat chest x-ray shows significant improvement from the . Patient is still requiring BiPAP. We will try to wean off as tolerated. Appreciate Dr. Jimenez's input. We will continue with albuterol inhaler as needed. Continue supplemental oxygen. Continue with diuresing the patient and keep patient on the dry side. LFTs have normalized. White blood cell count from yesterday was normal with lymphopenia. We will repeat in a.m. Cultures are negative to date. Decadron dose has been reduced to 2 mg IV q.8. Remdesivir treatment for total of 5 days. 2. Acute respiratory failure with hypoxia secondary to above. We will continue BiPAP and wean off as tolerated. 3. DM2 w Hyperglycemia, likely due to steroids. Pt takes metformin at home. Continue sliding scale insulin and monitor blood glucose levels. 4. Obesity, BMI 38. 5. Elevated LFTs, likely secondary to coronavirus disease 2019. Liver function enzymes have normalized. 6. Microcytic hypochromic anemia. Patient likely has anemia due to iron deficiency. We will continue to monitor. Transfuse as needed. 7. Deep venous thrombosis prophylaxis. We will continue with Lovenox 40 b.i.d. Patient was seen virtually. Physical examination was completed with assistance from the bedside RN. Both the assessment and plan based on chart review. HPI and physical examination findings gathered during the encounter. Every effort has been made to make this encounter comprehensive to the best of our abilities. PADILLA Voice ID: [id number] Report ID: [id number] PIPER
[2020-04-18 05:11] LABS: Albumin 2.7 g/dL (3.4-5.0); Bilirubin Direct 0.1 mg/dL (0-0.2); Bilirubin Total 0.3 mg/dL (0.2-1.0); Protein, Total 6.6 g/dL (6.4-8.2)
[2020-04-18] MEDS: PARoxetine HCL 10 MG TAB PO SCH (08:10)
[2020-04-18] MEDS: Remdesivir 100 MG in NA CHLORIDE 0.9% 250 ML IV SCH (08:10)
[2020-04-18] MEDS: METFORMIN HCL 500 MG TAB PO SCH (08:10)
[2020-04-18] MEDS: GUAIFENESIN 600 MG SA TAB PO SCH ×2 (08:10→20:12)
[2020-04-18] MEDS: ENOXAPARIN 40 MG/0.4 ML SQ SCH ×2 (08:10→20:11)
[2020-04-18] MEDS: predniSONE 20 MG TAB PO SCH ×2 (08:10→20:12)
[2020-04-18] MEDS: FUROSEMIDE 20 MG TABLET PO SCH (08:13)
[2020-04-18] MEDS: SPIRONOLACTONE 25 MG TABLET PO SCH (08:13)
[2020-04-18] MEDS: INSULIN GLARGINE 100 UNITS/ML SQ SCH (08:35)
[2020-04-18] MEDS: INSULIN -REGULAR HUMAN 50 UNIT/0.5 ML ML SQ SCH ×4 (08:35→20:11)
[2020-04-18 08:57] LABS: Arterial Blood Carboxyhemoglob 1.2 % (0-1.5); Blood O2 Saturation 86.8 % (92-98.5)
[2020-04-18 11:57] LABS: Absolute Lymphocytes (CBC) 0.6 K/uL (0.7-4.9); Basophils % 0.5 % (0-1.3); Hematocrit 37.1 % (36.0-45.0); MPV 8.8 fL (7.6-11.3); RBC Red Blood Cell Count 5.01 M/uL (3.86-4.86)
[2020-04-18 12:06] LABS: Albumin 2.7 g/dL (3.4-5.0); Bilirubin Total 0.4 mg/dL (0.2-1.0); Potassium 4.1 mmol/L (3.5-5.1); Protein, Total 6.5 g/dL (6.4-8.2)
[2020-04-18] MEDS ORDERED: Ringers Lactate 500 ML IV ONE ×2 (12:38→14:49)
[2020-04-18] MEDS: BENZONATATE 100 MG CAP PO PRN (20:13)
--- NOTE | 2020-04-18 20:27 | PN ---
Date of Progress Note: 04/18/2020 History Of Present Illness: Patient is seen through the door window. Case discussed with Dr. Jennifer liz, doing significantly better on 2 L of oxygen via nasal cannula; however, lactate has been high and flagging for sepsis due to elevated heart rate. Medications: List reviewed. Physical Examination: Vital Signs: Temperature 97.5, heart rate 101, respirations 22, blood pressure 98/60, O2 is 90% on 2 L via nasal cannula. General: Awake, alert, oriented x3, in minimal respiratory distress. Respiratory: Talking in full sentences. Does not appear to be using any accessory muscles on nasal cannula for supplemental oxygen. Neurologic: Nonfocal. No facial asymmetry. Speech is normal. Moves all 4 extremities. Skin: No visible rashes. Laboratory Data: Sodium 137, potassium 4.1, chloride 103, CO2 of 26, BUN 26, creatinine 0.76, glucos e 385, lactate 3.4, repeat lactate is 4.8, calcium 8.6, albumin 2.7, procalcitonin less than 0.05. W BC 8.6, H and H 11.6 and 37.1, platelets 335, neutrophils 85%. Assessment And Plan: A 34-year-old female with: 1.Coronavirus disease 2019 pneumonia. Patient has been afebrile status post convalescent plasma 1 u nit and remdesivir. Last dose will be tomorrow. Patient is on IV Decadron. Chest x-ray shows signi ficant improvement, now weaned off BiPAP, improving significantly. Appreciate Pulmonology input. Al buterol inhaler as needed. Patient currently on 2 L of supplemental oxygen. Home O2 is being set up through Case Management. We will continue with diuresis. LFTs normalized. Her lactate, however, h as been trending up as she has been flagging for sepsis, heart rates in the 120s. We will repeat 1/2 L bolus of IV fluids with lactated Ringer's. Cultures have been negative. Procalcitonin is also ne gative. 2.Acute respiratory failure with hypoxia secondary to above, improving, currently on 2 L via nasal c annula. 3.Diabetes mellitus type 2 with hyperglycemia likely due to steroids. Continue metformin, sliding s gay insulin. Monitor blood glucose levels. 4.Elevated liver function tests secondary to coronavirus disease 2019. Now normalized. We will con tinue to monitor. 5.Microcytic hypochromic anemia, likely due to anemia of chronic iron deficiency. We will monitor a nd transfuse as needed. 6.Obesity. BMI 38. 7.Deep venous thrombosis prophylaxis. Continue with Lovenox 40 b.i.d. Plan last dose of remdesivir in a.m. Set up home O2. Repeat lactate in a.m. Continue with IV fluid bolus. Patient is seen virtually. Physical exam was completed with assistance with the bedside RN, but the assessment and plan are based on chart review, HPI, and physical examination findings gathered during the encounter. Every effort has been made to make this encounter and comprehensive to the best of o ur abilities. SA/MODL Voice ID: [id number] Report ID: [id number]
[2020-04-19 03:50] LABS: ALT/SGPT 61 U/L (12-78); AST/SGOT 18 U/L (15-37); Albumin 2.5 g/dL (3.4-5.0); Alkaline Phosphatase 80 U/L (45-117); BUN Blood Urea Nitrogen 24 mg/dL (7-18); Bicarbonate 28 mmol/L (21-32); Bilirubin Direct 0.1 mg/dL (0-0.2); Bilirubin Total 0.3 mg/dL (0.2-1.0); Glucose Level 307 mg/dL (74-106); Potassium 3.9 mmol/L (3.5-5.1); Protein, Total 5.9 g/dL (6.4-8.2); Sodium Level 139 mmol/L (136-145)
[2020-04-19] MEDS: predniSONE 20 MG TAB PO SCH (08:05)
[2020-04-19] MEDS: SPIRONOLACTONE 25 MG TABLET PO SCH (08:05)
[2020-04-19] MEDS: GUAIFENESIN 600 MG SA TAB PO SCH ×2 (08:05→20:57)
[2020-04-19] MEDS: FUROSEMIDE 20 MG TABLET PO SCH (08:05)
[2020-04-19] MEDS: PARoxetine HCL 10 MG TAB PO SCH (08:05)
[2020-04-19] MEDS: METFORMIN HCL 500 MG TAB PO SCH (08:05)
[2020-04-19] MEDS: ENOXAPARIN 40 MG/0.4 ML SQ SCH ×2 (08:06→20:57)
[2020-04-19] MEDS: Remdesivir 100 MG in NA CHLORIDE 0.9% 250 ML IV SCH (08:06)
--- NOTE | 2020-04-19 08:15 | P.PN ---
Subjective Date of Service: 04/18/20 Chief Complaint: COVID-19 pneumonia with hypoxemia Patient is clinically improving chest x-ray has cleared still hypoxic on mild exertion intermittent use of BiPAP patient is ambulating around her room Review of Systems General: Weakness Respiratory: Shortness of Breath Physical Examination - Vital Signs Temperature: 98.1 F Blood Pressure: 118/75 Pulse: 79 Respirations: 18 Pulse Ox (%): 88 - Physical Exam General: Alert, Oriented x3 Respiratory: Clear to auscultation bilaterally Cardiovascular: No edema - Studies Microbiology Data (last 24 hrs): 04/12/20 23:40 Blood - Blood Aerobic Blood Culture - Final 04/12/20 23:40 Blood - Blood Blood Culture Gram Stain - Final 04/12/20 23:40 Blood - Blood Anaerobic Blood Culture - Final No growth in 5 days. Medications List Reviewed: Yes Assessment & Plan - Problems (Diagnosis) (1) Pneumonia due to COVID-19 virus Current Visit: Yes Status: Acute Plan: Patient admitted with acute lung injury secondary to: OR as she is improving although she continues to remain hypoxic confirmed by a blood gases chest x-ray has cleared significantly no fever vital signs stable patient can be discharged home on oxygen due to 3 L per min in addition to prednisone 10 mg twice a day for 7 days patient will be scheduled to have a telephone visit in my office in a week or so patient has no fever
[2020-04-19] MEDS: predniSONE 10 MG TAB PO SCH ×2 (08:58→20:57)
[2020-04-19] MEDS: INSULIN -REGULAR HUMAN 50 UNIT/0.5 ML ML SQ SCH ×4 (08:58→20:58)
[2020-04-19] MEDS: INSULIN GLARGINE 100 UNITS/ML SQ SCH (08:59)
[2020-04-19] MEDS ORDERED: POTASSIUM CL SA 10 MEQ TAB PO ONE (09:00)
--- NOTE | 2020-04-19 23:46 | DS ---
Date of service: 04/19/2020 Consultants: Dr. Jimenez with Pulmonology. Admitting Diagnoses: 1. Coronavirus disease 2019 pneumonia. 2. Hypoxemia. 3. Dyspnea. Discharge Diagnoses: 1. Coronavirus disease 2019 pneumonia, improved. 2. Acute respiratory failure with hypoxia, improving, has been set up with home oxygen. 3. Diabetes mellitus type 2 with hyperglycemia secondary to steroid, stable. 4. Elevated liver function test secondary to Coronavirus disease 2019, now normalized. 5. Microcytic hypochromic anemia secondary to anemia with iron deficiency. 6. Obesity, BMI of 38. Hospital Course: Patient is a 34-year-old female with past medical history of diabetes, comes in with shortness of breath and hypoxemia. Patient tested for COVID-19, which came back positive. Patient was admitted for respiratory failure. Patient was started on diuretics and dexamethasone. Patient also required convalescent plasma and was also given Remdesivir. Patient initially had deterioration of her symptoms, however, did improve with treatment. Her blood cultures were negative. Urine culture showed mixed talisha. Influenza screen was also negative. Patient's repeat chest x-ray showed significant improvement. She was seen by assembler, Dr. Jimenez. Patient was then able to ambulate. She was weaned off BiPAP. Her supplemental oxygen was down to 2 L and was saturating 94%. She was able to ambulate without significant dyspnea or difficulty. Patient was then cleared for discharge and she will need to continue self isolation at home. Followup with primary care physician in 2-3 days. Follow up with assembler, Dr. Jimenez in 1 week. Return to ER for worsening condition. Diet: Diabetic. Activity: No strenuous activity. Medications: As per medication reconciliation list. Physical Examination: Vital Signs: Temperature 97.4, heart rate 104, blood pressure 114/72, respirations 19, O2 94% on 2 L via nasal cannula. General: Awake, alert, oriented x3. Does not appear to be in any acute distress. Respiratory: Does not appear to be in any respiratory distress. No use of accessory muscles. Able to talk in full sentences without getting short of breath. Neuro: Moves all 4 extremities. Speech is normal. Patient was seen virtually. Physical exam completed with assistance of the bedside RN. Assessment and plan based on chart review, HPI, physical examination findings gathered during the encounter. Every effort has been made to make this encounter comprehensive to the best of our abilities. Total time spent discharging patient was 43 minutes. PADILLA Voice ID: [id number] Report ID: [id number] MTDD
[2020-04-20 07:07] LABS: BUN Blood Urea Nitrogen 23 mg/dL (7-18); Bicarbonate 27 mmol/L (21-32); Glucose Level 266 mg/dL (74-106); Potassium 3.9 mmol/L (3.5-5.1); Sodium Level 140 mmol/L (136-145)
[2020-04-20] MEDS: INSULIN -REGULAR HUMAN 50 UNIT/0.5 ML ML SQ SCH ×2 (07:30→11:30)
[2020-04-20] MEDS: PARoxetine HCL 10 MG TAB PO SCH (08:54)
[2020-04-20] MEDS: predniSONE 10 MG TAB PO SCH (08:54)
[2020-04-20] MEDS: GUAIFENESIN 600 MG SA TAB PO SCH (08:54)
[2020-04-20] MEDS: SPIRONOLACTONE 25 MG TABLET PO SCH (08:55)
[2020-04-20] MEDS: METFORMIN HCL 500 MG TAB PO SCH (08:55)
[2020-04-20] MEDS: ENOXAPARIN 40 MG/0.4 ML SQ SCH (08:55)
[2020-04-20] MEDS: FUROSEMIDE 20 MG TABLET PO SCH (08:55)
[2020-04-20] MEDS: INSULIN GLARGINE 100 UNITS/ML SQ SCH (09:42)
[2020-04-20 11:02] VITALS: O2SAT 94
--- NOTE | 2020-04-20 18:17 | PN ---
Date of Progress Note: 04/20/2020 History: Patient was seen through the negative pressure isolation room window. Medications list rev iewed. Patient wanted to go home. She says she will pay for oxygen herself. She has an 18-month-ol d who was also tested positive. Otherwise doing well. Clinically stable. Did have some desaturatio n when she took her oxygen off last night down in the 80s. Medications: List reviewed. Physical Examination: Vital Signs: Temperature 97.5, heart rate 74, blood pressure 111/81, respirations 18, O2 94% on 4 L via nasal cannula. General: Does not appear to be any acute distress. Obese female. Respiratory: Not using any accessory muscles. Able to talk in complete sentences. Does have oxygen via nasal cannula in place. Neuro: Moves all 4 extremities. No facial asymmetry. Speech is normal. Laboratory Data: Sodium 140, potassium 3.9, chloride 106, CO2 of 27, BUN 23, creatinine 0.49, glucos e 266, calcium 8.4. Assessment: 1.34-year-old female with coronavirus disease 2019 pneumonia, improved. 2.Acute respiratory failure with hypoxia, improving. We will need home oxygen. 3.Diabetes mellitus type 2 with hyperglycemia secondary to steroids, stable. 4.Elevated LFTs secondary to coronavirus disease 2019, improving, normalized. 5.Microcytic hypochromic anemia secondary to iron deficiency. H and H stable. 6.Obesity, BMI 38. Plan: Discharge home once home oxygen is set up. The patient seen virtually. Physical exam completed with assistance of bedside RN. Assessment and p jg based on chart review, HPI, physical examination findings gathered during the encounter. Every e ffort has been made to make this encounter comprehensive to the best of our abilities. /SHARON Voice ID: [id number] Report ID: [id number]
[2020-04-23 22:50] VITALS: BP 110/70; TEMP 97.2
== END 2020-04-20 16:00 | disposition home or self-care (01) | DRG 177 ==
LOC: ER 22:16 → 4TH 04-13 02:30
PROVIDERS: ADMIT Hospitalist; ATTEND Family Medicine
PROC: 8E0ZXY6 Isolation (ICD-10-PCS; principal; 2020-04-13)
PROC: 30233K1 Transfusion of Nonautologous Frozen Plasma into Peripheral Vein, Percutaneous Approach (ICD-10-PCS; 2020-04-14)
DX: U07.1 COVID-19 (principal); J12.89 Other viral pneumonia; J96.01 Acute respiratory failure with hypoxia; Z88.1 Allergy status to other antibiotic agents; Z88.0 Allergy status to penicillin; F41.8 Other specified anxiety disorders; Z79.4 Long term (current) use of insulin; E66.9 Obesity, unspecified; E11.65 Type 2 diabetes mellitus with hyperglycemia; T38.0X5A Adverse effect of glucocorticoids and synthetic analogues, initial encounter; R79.89 Other specified abnormal findings of blood chemistry; D50.9 Iron deficiency anemia, unspecified; Z68.38 Body mass index [BMI] 38.0-38.9, adult
CPT/HCPCS: 36415; 36430; 71045; 80048; 80053; 80076; 81003; 81015; 81025; 82248; 82728; 82805; 82947; 83605; 83690; 83735; 83880; 84100; 84132; 84145; 84484; 85025; 85379; 85610; 85730; 86140; 86850; 86900; 86901; 87040; 87070; 87081; 87086; 87088; 87205; 87804; 93005; 94660; 94760; 96360; 96361; 99285; J0456; J1100; J1650; J1815; J1940; J2405; J7030; J7120; J7512; U0002

== ENCOUNTER → 2024-01-20 | Emergency (ER) | payer OTHER ==
[~2024-01-20] MED LIST: HYDROCODONE/APAP 5/325 MG TAB ONE; LIDOCAINE 1% MPF 5 ML VIAL ONE; ONDANSETRON 4 MG (ODT) TAB ONE
--- NOTE | 2024-01-20 10:37 | ER ---
Nurse's Notes [facility] Name: Valarie Michelle Age: 38 yrs Sex: Female : 1985 Arrival Date: 01/20/2024 Time: 07:46 Bed 12 Private MD: Diagnosis: Cutaneous abscess of buttock Presentation: 01/19 08:32 Chief complaint: Patient states: abscess to left gluteal fold X 1day. Coronavirus iw screen: At this time, the client does not indicate any symptoms associated with coronavirus-19. Ebola Screen: Patient negative for fever greater than or equal to 101.5 degrees Fahrenheit, and additional compatible Ebola Virus Disease symptoms Patient denies exposure to infectious person. Patient denies travel to an Ebola-affected area in the 21 days before illness onset. No symptoms or risks identified at this time. Initial Sepsis Screen: Does the patient meet any 2 criteria? No. Patient's initial sepsis screen is negative. Does the patient have a suspected source of infection? No. Patient's initial sepsis screen is negative. Risk Assessment: Do you want to hurt yourself or someone else? Patient reports no desire to harm self or others. Onset of symptoms was January 20, 2024. 08:32 Method Of Arrival: Ambulatory iw 08:32 Acuity: MIRA 3 iw Historical: - Allergies: 08:35 Ceclor; iw 08:35 PENICILLINS; iw - PMHx: 08:35 gestational diabetes; iw - PSHx: 08:35 None; iw - Immunization history:: Adult Immunizations up to date. - Social history:: Smoking status: Patient denies any tobacco usage or history of. - Family history:: not pertinent. - Hospitalizations: : No recent hospitalization is reported. Screenin:[address] [facility] ED Fall Risk Assessment (Adult) History of falling in the last 3 months, hb including since admission No falls in past 3 months (0 pts) Confusion or Disorientation No (0 pts) Intoxicated or Sedated No (0 pts) Impaired Gait No (0 pts) Mobility Assist Device Used No (0 pt) Altered Elimination No (0 pt) Score/Fall Risk Level 0 - 2 = Low Risk Oriented to surroundings, Maintained a safe environment. Abuse screen: Denies threats or abuse. Denies injuries from another. Nutritional screening: No deficits noted. Tuberculosis screening: No symptoms or risk factors identified. Assessment: 08:45 General: Appears in no apparent distress. Behavior is calm, cooperative. Pain: iw Complains of pain in left gluteal fold. 10:15 General: Appears in no apparent distress. uncomfortable, Behavior is calm, cooperative. hb 10:15 Pain: Complains of pain in left gluteal fold Pain does not radiate. Pain currently is 5 hb out of 10 on a pain scale. Quality of pain is described as burning, pressure, Pain began 1 day ago. Is continuous. Derm: Abscess located on left gluteal fold is quarter sized, has purulent drainage, is hot to touch, is red, is raised. Vital Signs: 08:32 BP 135 / 103; Pulse 110; Resp 16; Temp 98.1; Pulse Ox 100% ; Weight 88.45 kg; Height 5 iw ft. 5 in. ; Pain 8/10; 10:54 Resp 15; jl7 08:32 Body Mass Index 32.45 (88.45 kg, 165.1 cm) iw 08:32 Pain Scale: Adult iw ED Course: 07:50 Patient arrived in ED. rg4 07:52 Nathan Viera MD is Attending Physician. rn 08:35 Triage completed. iw 08:35 Arm band placed on. iw 09:39 Maritza Gipson, RN is Primary Nurse. iw 10:15 Patient has correct armband on for positive identification. Placed in gown. Bed in low hb position. Call light in reach. Side rails up X 1. Provided Education on: Wound care. Warm blanket given. 10:15 Assist provider with I \T\ D: of an abscess on left gluteal fold Set up I\T\D tray. hb Performed by Nathan Viera MD Wound packed. iodoform gauze, Dressing with ABD pad, tape Patient tolerated well. Patient did not have IV access during this emergency room visit. Patient maintains SpO2 saturation greater than 95% on room air. Wound care: to abscess located on left gluteal fold was cleaned with Betadine, dressed with ABD pads, Patient tolerated well. Administered Medications: 09:40 Drug: [place] PO 5 mg-325 mg 1 tabs PO once Route: PO; iw 10:55 Follow up: Response: No adverse reaction; Pain is decreased jl7 09:40 Drug: Ondansetron PO 4 mg PO once Route: PO; iw 10:55 Follow up: Response: No adverse reaction jl7 10:32 Drug: Lidocaine Infiltration (1 %) 1 vials 5 ml Infiltration once; to bedside {Note: hb administered by Dr Viera prior to I\T\D.} Volume: 5 ml; Route: Infiltration; :55 Follow up: Response: No adverse reaction jl7 Medication: 10:15 VIS not applicable for this client. hb Outcome: 10:36 Discharge ordered by . rn 10:54 Discharged to home ambulatory, jl7 10:54 Condition: stable 10:54 Discharge instructions given to patient, Instructed on discharge instructions, follow up and referral plans. medication usage, Demonstrated understanding of instructions, follow-up care, medications, Prescriptions given X 2, :55 Patient left the ED. jl7 Signatures: Maritza Gipson, RN RICHARD Nathan Viera MD MD rn Baxter, Heather, RN RN hb Garcia, Rubi rg4 Osvaldo Herron RN RN jl7
--- NOTE | 2024-01-20 10:37 | EDPHYS ---
Physician Documentation [facility] Name: Valarie Michelle Age: 38 yrs Sex: Female : 1985 Arrival Date: 01/20/2024 Time: 07:46 Bed 12 Private MD: ED Physician Nathan Viera HPI: 01/19 10:34 This 38 yrs old Female presents to ER via Ambulatory with complaints of rn Abscess. 10:34 The patient presents with an abscess of the left gluteal fold. Onset: The rn symptoms/episode began/occurred 2 day(s) ago. Possible cause(s): unknown. Modifying factors: the symptoms are alleviated by nothing, the symptoms are aggravated by squeezing the lesion and expressing the contents, touching. Severity of symptoms: At their worst the symptoms were moderate, in the emergency department the symptoms are unchanged. The patient has experienced similar episodes in the past. Patient reports multiple abscesses in the past, has never needed incision and drainage. Reports abscess to left gluteal fold. Some drainage recently.. Historical: - Allergies: 08:35 Ceclor; iw 08:35 PENICILLINS; iw - PMHx: 08:35 gestational diabetes; iw - PSHx: 08:35 None; iw - Immunization history:: Adult Immunizations up to date. - Social history:: Smoking status: Patient denies any tobacco usage or history of. - Family history:: not pertinent. - Hospitalizations: : No recent hospitalization is reported. ROS: 10:34 Constitutional: Negative for fever, chills, and weight loss, Skin: Positive for abscess rn left gluteal fold Exam: 10:34 Constitutional: This is a well developed, well nourished patient who is awake, alert, rn and in no acute distress. Skin: 3 cm area of induration and fluctuance left inner gluteal fold. Does not abut the anus or perirectal area. No evidence of Consuelo's. No involvement of labia or vaginal region. Vital Signs: 08:32 BP 135 / 103; Pulse 110; Resp 16; Temp 98.1; Pulse Ox 100% ; Weight 88.45 kg; Height 5 iw ft. 5 in. ; Pain 8/10; 10:54 Resp 15; jl7 08:32 Body Mass Index 32.45 (88.45 kg, 165.1 cm) iw 08:32 Pain Scale: Adult iw Procedures: 10:34 I \T\ D: Incision and drainage was performed for an abscess of the left left gluteal fold rn Prepped with Betadine, Anesthetized with 3 ml's 1% Lidocaine. Incised with #11 blade. Drained small amount purulent fluid. serosanguinous fluid. Packed with iodoform gauze, Dressing: sterile 4x4 gauze, the patient tolerated the procedure well. MDM: 07:52 Patient medically screened. rn 10:34 Differential diagnosis: abscess, cellulitis. Data reviewed: vital signs, nurses notes, rn and as a result, I will discharge patient. Counseling: I had a detailed discussion with the patient and/or guardian regarding the historical points, exam findings, and any diagnostic results supporting the discharge/admit diagnosis, the need for outpatient follow up, to return to the emergency department if symptoms worsen or persist or if there are any questions or concerns that arise at home. Response to treatment: the patient's symptoms have markedly improved after treatment, and as a result, I will discharge patient. Special discussion: I discussed with the patient/guardian in detail that at this point there is no indication for admission to the hospital. It is understood, however, that if the symptoms persist or worsen the patient needs to return immediately for re-evaluation. 01/19 09:06 Order name: Incision \T\ Drainage Setup; Complete Time: 09:40 rn Administered Medications: 09:40 Drug: [place] PO 5 mg-325 mg 1 tabs PO once Route: PO; iw 10:55 Follow up: Response: No adverse reaction; Pain is decreased jl7 09:40 Drug: Ondansetron PO 4 mg PO once Route: PO; iw 10:55 Follow up: Response: No adverse reaction jl7 10:32 Drug: Lidocaine Infiltration (1 %) 1 vials 5 ml Infiltration once; to bedside {Note: hb administered by Dr Viera prior to I\T\D.} Volume: 5 ml; Route: Infiltration; 10:55 Follow up: Response: No adverse reaction jl7 Disposition Summary: 01/20/24 10:36 Discharge Ordered Notes: Location: Home rn Problem: new rn Symptoms: have improved rn Condition: Stable rn Diagnosis - Cutaneous abscess of buttock rn Followup: rn - With: Private Physician - When: As needed - Reason: Recheck today's complaints, Re-evaluation by your physician Discharge Instructions: - Discharge Summary Sheet rn - Skin Abscess rn - Incision and Drainage rn - Incision and Drainage, Care After rn Forms: - Medication Reconciliation Form rn - Thank You Letter rn - Antibiotic broadcast journalist - Prescription Opioid Use rn - Patient Portal Instructions rn - Leadership Thank You Letter rn Prescriptions: - Tramadol 50 mg Oral Tablet - take 1 tablet ORAL route every 8 hours as needed; 12 tablet; Refills: 0, rn Product Selection Permitted - Bactrim DS 800-160 mg Oral Tablet - take 1 tablet ORAL route every 12 hours for 10 days; 20 tablet; Refills: 0, rn Product Selection Permitted Signatures: Maritza Gipson RN Nathan Miramontes MD MD rn Baxter, Heather, RN RN hb Leal, Jahala RN jl7
[2024-01-20 11:13] VITALS: BP 135/103; TEMP 98.1; O2SAT 100
== END ==
LOC: ER 07:46
PROC: 0H98XZZ Drainage of Buttock Skin, External Approach (ICD-10-PCS; principal; 2024-01-20)
DX: L02.31 Cutaneous abscess of buttock (principal); Z88.0 Allergy status to penicillin; Z88.1 Allergy status to other antibiotic agents
CPT/HCPCS: 10060; Q0162; J2001

== ENCOUNTER 2024-02-05 10:56 | Emergency (ER) | payer OTHER ==
[2024-02-05 12:06] LABS: Specific Gravity > 1.030 (1.005-1.030)
[2024-02-05 12:10] LABS: Specific Gravity > 1.030 (1.005-1.030); Sqamous Epithelial <5 /HPF (None Seen); Urine Bacteria <20 /HPF (<20); Urine Bilirubin NEGATIVE (Negative); Urine Blood 3+ (OVER) (Negative); Urine Clarity Clear (Clear); Urine Color Colorless (Yellow); Urine Culture Reflex Order REFLEXED; Urine Glucose 4+ (Over) (Negative); Urine Ketones 2+ (Negative); Urine Microscopic Reflex YN ORDER UMIC; Urine Mucus Slight /HPF (None Seen); Urine Nitrite NEGATIVE (Negative); Urine Protein NEGATIVE (Negative); Urine RBC >50 /HPF (None Seen); Urine Urobilinogen Normal (Normal); Urine pH 6.5 (5.0-7.0)
[2024-02-05 12:17] LABS: Albumin 3.1 g/dL (3.4-5.0); Anion Gap 7.4 mEq/L (5.0-15.0); Bilirubin Total 0.8 mg/dL (0.2-1.0); Globulin 3.1 g/dL (2.3-3.5); Potassium 3.4 mEq/L (3.5-5.1); Protein, Total 6.2 g/dL (6.4-8.2)
[2024-02-05 12:21] LABS: Absolute Monocytes 0.5 K/uL (0.1-1.3); Absolute Neutrophil 4.6 K/uL (1.8-8.0); Basophils % 0.5 % (0-1.3); Eosinophils % 0.1 % (0-4.4); Hematocrit 37.8 % (36.0-45.0); Hemoglobin 12.6 g/dL (12.0-15.0); Lymphocytes % 15.7 % (15.3-44.8); MCH 28.3 pg (27.0-35.0); MCHC 33.4 g/dL (32.0-36.0); MCV 84.9 fL (80-100); MPV 9.9 fL (7.6-11.3); Monocytes % 8.6 % (3.3-12.3); Neutrophils % 75.1 % (41.7-73.7); Nucleated Red Blood Cells % 0.1 % (0-0); RBC Red Blood Cell Count 4.45 M/uL (3.86-4.86); Red Cell Distribution Width 13.3 % (12.1-15.2)
[2024-02-05 12:23] LABS: Platelets 8 thou/uL (152-406)
[2024-02-05] MEDS ORDERED: INSULIN REGULAR (HUMAN) 100 UNIT/ML ONE (12:37)
[2024-02-05] MEDS ORDERED: METHYLPREDNISOLONE 125 MG INJ ONE (12:37)
--- NOTE | 2024-02-05 12:47 | ER ---
Nurse's Notes [facility] Name: Valarie Michelle Age: 38 yrs Sex: Female : 1985 Arrival Date: 02/05/2024 Time: 10:56 Bed 15 Private MD: Diagnosis: Thrombocytopenia, unspecified;Hyperglycemia, unspecified Presentation: 02/04 11:15 Chief complaint: N/V x 2 days, bruising all over and heavy menses today. Coronavirus hb screen: At this time, the client does not indicate any symptoms associated with coronavirus-19. Ebola Screen: No symptoms or risks identified at this time. Initial Sepsis Screen: Does the patient meet any 2 criteria? No. Patient's initial sepsis screen is negative. Does the patient have a suspected source of infection? No. Patient's initial sepsis screen is negative. Risk Assessment: Do you want to hurt yourself or someone else? Patient reports no desire to harm self or others. Onset of symptoms was February 03, 2024. 11:15 Method Of Arrival: Ambulatory hb 11:15 Acuity: MIRA 3 hb Triage Assessment: 11:17 General: Appears in no apparent distress. Behavior is calm, cooperative. Pain: Pain hb currently is 3 out of 10 on a pain scale. Neuro: Level of Consciousness is awake, alert, obeys commands, Oriented to person, place, time, situation. Cardiovascular: Patient's skin is warm and dry. Respiratory: Respiratory effort is even, unlabored, Respiratory pattern is regular, symmetrical. GI: Reports nausea, vomiting. : Reports vaginal bleeding that is heavy flow. 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 - Infectious Disease History:: Denies. - Social history:: Smoking status: Patient denies any tobacco usage or history of. - Family history:: not pertinent. - Hospitalizations: : No recent hospitalization is reported. Screenin:55 [facility] ED Fall Risk Assessment (Adult) History of falling in the last 3 months, bp including since admission No falls in past 3 months (0 pts). Abuse screen: Denies threats or abuse. Denies injuries from another. Nutritional screening: No deficits noted. Tuberculosis screening: No symptoms or risk factors identified. Assessment: 11:20 General: SEE TRIAGE NOTE. bp 12:55 Reassessment: Patient appears in no apparent distress at this time. Patient is alert, bp oriented x 3, equal unlabored respirations, skin warm/dry/pink. GI: Abdomen is non-distended. 14:28 Reassessment: REPORT TO GOYO RAMOS FOR [facility] 2055. bp Vital Signs: 11:15 BP 142 / 94; Pulse 104; Resp 15; Temp 99.5(O); Pulse Ox 97% on R/A; Weight 88.45 kg; hb Height 5 ft. 5 in. ; Pain 3/10; 12:54 BP 139 / 98; Pulse 97; Resp 16; Pulse Ox 100% ; bp 14:28 BP 140 / 96; Pulse 94; Resp 16; Pulse Ox 98% ; bp 15:25 BP 123 / 86; Pulse 95; Resp 16; Pulse Ox 97% ; bp 11:15 Body Mass Index 32.45 (88.45 kg, 165.1 cm) hb 11:15 Pain Scale: Adult hb ED Course: 10:59 Patient arrived in ED. im 10:59 Nathan Viera MD is Attending Physician. rn 11:08 Fabio Hernandez, RICHARD is Primary Nurse. bp 11:17 Triage completed. hb 11:17 Arm band placed on. hb 11:37 CBC with Diff Sent. bp 11:37 CMP Sent. bp 11:37 Lipase Sent. bp 11:37 Type And Screen Sent. bp 11:37 Initial lab(s) drawn, by fl, sent to lab. Inserted saline lock: 22 gauge in right ty forearm, using aseptic technique. Blood collected. 12:30 Notified ED physician of a critical lab result(s). GLUC 482. hb 12:44 CT Abd/Pelvis - IV Contrast Only In Process Unspecified. EDMS 12:44 initiated a transfer with Russell Anurag from the [facility] [place]. eb 12:55 Patient has correct armband on for positive identification. bp 13:[address] Rodriguez the hospitalist lamination spinner for [facility] with Dr. Viera for eb patient transfer consultation. 14:29 No provider procedures requiring assistance completed. Patient transferred, IV remains bp in place. 15:25 Provided Education on: N/A. bp Administered Medications: 12:52 Drug: MethylPrednisoLONE IVP 125 mg IVP once Route: IVP; Site: right antecubital; bp 15:26 Follow up: Response: No adverse reaction bp 12:53 Drug: Insulin Regular Human Sub-Q 10 units Sub-Q once {Co-Signature: hb (bp Lona Whitley RN).} Route: Sub-Q; Site: right upper arm; 15:26 Follow up: Response: No adverse reaction bp Medication: 15:25 VIS not applicable for this client. bp Outcome: 12:46 ER care complete, transfer ordered by . rn 15:25 Transferred by ground EMS to [facility], bp 15:25 Condition: stable 15:25 Instructed on the need for transfer, 15:28 Patient left the ED. bp Signatures: Dispatcher [employer] EDMS Nathan Viera MD MD rn Baxter, Heather, RN RN Fabio Brownlee RN RN bp Debbie Weir Itzel im Yandell, Tylor ty Baxter, Heather RN hb Corrections: (The following items were deleted from the chart) 11:17 11:15 BP 142 / 94; Pulse 104bpm; Resp 15bpm; Pulse Ox 97% RA; Temp 99.5F Oral; Pain hb 310, Adult; hb
--- NOTE | 2024-02-05 12:47 | EDPHYS ---
Physician Documentation [facility] Name: Valarie Michelle Age: 38 yrs Sex: Female : 1985 Arrival Date: 02/05/2024 Time: 10:56 Bed 15 Private MD: ED Physician Nathan Viera HPI: 02/04 11:31 This 38 yrs old Female presents to ER via Ambulatory with complaints of rn Nausea/Vomiting/Diarrhea, Abdominal Pain. 11:31 The patient presents to the emergency department with nausea, vomiting, diarrhea, rn abdominal pain. Onset: The symptoms/episode began/occurred 2 day(s) ago. Possible causes: unknown. The symptoms are aggravated by nothing. The symptoms are alleviated by nothing. Severity of symptoms: At their worst the symptoms were mild in the emergency department the symptoms are unchanged. The patient has not experienced similar symptoms in the past. The patient has been recently seen at the [facility] Emergency Department. Patient reports here for 2 problems. Patient reports nausea/vomiting/diarrhea with intermittent abdominal pain for 2 days. Patient reports recently had I\T\D of abscess and placed on Bactrim, finished it 3 days ago. Has noticed for the last few days bruising and just started her menstrual cycle and is heavier than normal. Denies shortness of breath. No trauma.. 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 - Infectious Disease History:: Denies. - Social history:: Smoking status: Patient denies any tobacco usage or history of. - Family history:: not pertinent. - Hospitalizations: : No recent hospitalization is reported. ROS: 11:31 Constitutional: Negative for fever, chills, and weight loss, Eyes: Negative for injury, rn pain, redness, and discharge, ENT: Negative for injury, pain, and discharge, Neck: Negative for injury, pain, and swelling, Cardiovascular: Negative for chest pain, palpitations, and edema, Respiratory: Negative for shortness of breath, cough, wheezing, and pleuritic chest pain, Abdomen/GI: Positive for abdominal pain with nausea/vomiting/diarrhea. : Heavier than normal menses MS/Extremity: Negative for injury and deformity, Skin: Negative for injury, rash, and discoloration, Neuro: Positive for generalized weakness Exam: 11:31 Constitutional: This is a well developed, well nourished patient who is awake, alert, rn and in no acute distress. Ambulatory to room without difficulty or assistance Head/Face: Normocephalic, atraumatic. Cardiovascular: Tachycardic, regular. No pulse deficits. Respiratory: No increased work of breathing, no retractions or nasal flaring. Abdomen/GI: Mild mid abdominal tenderness Skin: Multiple ecchymosis/purpuric lesions of torso and extremities. MS/ Extremity: Pulses equal, no cyanosis. Neuro: Awake and alert, GCS 15 Vital Signs: 11:15 BP 142 / 94; Pulse 104; Resp 15; Temp 99.5(O); Pulse Ox 97% on R/A; Weight 88.45 kg; hb Height 5 ft. 5 in. ; Pain 3/10; 12:54 BP 139 / 98; Pulse 97; Resp 16; Pulse Ox 100% ; bp 14:28 BP 140 / 96; Pulse 94; Resp 16; Pulse Ox 98% ; bp 15:25 BP 123 / 86; Pulse 95; Resp 16; Pulse Ox 97% ; bp 11:15 Body Mass Index 32.45 (88.45 kg, 165.1 cm) hb 11:15 Pain Scale: Adult hb MDM: 10:59 Patient medically screened. rn 12:45 Differential diagnosis: Nonspecific abd pain, gastritis, diverticulitis, viral rn gastroenteritis, gastroenteritis, Thrombocytopenia, drug-induced number cytopenia, hyperglycemia, splenomegaly. Data reviewed: vital signs, nurses notes, lab test result(s), and as a result, I will admit patient. Consideration of Admission/Observation Patient was admitted/placed on observation. Escalation of care including admission/observation considered. Counseling: I had a detailed discussion with the patient and/or guardian regarding the historical points, exam findings, and any diagnostic results supporting the discharge/admit diagnosis, lab results, the need to transfer to another facility. ED course: Patient with severe thrombocytopenia, is on menses but hemodynamically stable. 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 Platelets were ordered but apparently this hospital does not carry platelets in house anymore. Steroids ordered. No IVIG here. Will transfer for hematology consultation as well as platelet transfusion and possible IVIG.. 02/04 11:15 Order name: CBC with Diff; Complete Time: 13:11 rn 02/04 11:15 Order name: CMP; Complete Time: 12:25 rn 02/04 11:15 Order name: Lipase; Complete Time: 12:25 rn 02/04 11:15 Order name: Test, Urine; Complete Time: 12:09 rn 02/04 11:15 Order name: Urinalysis w/ reflexes; Complete Time: 12:25 rn 02/04 11:15 Order name: Type And Screen; Complete Time: 13:11 rn 02/04 12:13 Order name: Urine Culture EDMS 02/04 12:25 Order name: CBC Smear Scan; Complete Time: 13:11 EDIA 02/04 11:15 Order name: CT Abd/Pelvis - IV Contrast Only; Complete Time: 13:11 rn 02/04 11:15 Order name: IV Saline Lock; Complete Time: 11:37 rn 02/04 11:15 Order name: Labs collected and sent; Complete Time: 11:37 rn 02/04 12:06 Order name: Labs - recollect needed: recollect cbc / hemolyzed per Monica; Complete eb Time: 12:10 Administered Medications: 12:52 Drug: MethylPrednisoLONE IVP 125 mg IVP once Route: IVP; Site: right antecubital; bp 15:26 Follow up: Response: No adverse reaction bp 12:53 Drug: Insulin Regular Human Sub-Q 10 units Sub-Q once {Co-Signature: jennifer (bp Lona Whitley RN).} Route: Sub-Q; Site: right upper arm; 15:26 Follow up: Response: No adverse reaction bp Disposition Summary: 02/05/24 12:46 Transfer Ordered Notes: Transfer Location: [facility] rn Reason: Higher level of care rn Condition: Stable rn Problem: new rn Symptoms: are unchanged rn Accepting Physician: (02/05/24 15:28) bp Diagnosis - Thrombocytopenia, unspecified rn - Hyperglycemia, unspecified rn Forms: - Medication Reconciliation Form rn - SBAR form rn Signatures: Dispatcher [employer] EDMS Nathan Viera MD MD rn Baxter, Heather, RN RN hb Peltier, Brian, RN RN bp Botello, Elizabeth eb Whitley, Lona RN Corrections: (The following items were deleted from the chart) 11:16 11:16 CBC+H.LAB.BRZ ordered. EDMS EDMS 11:16 11:16 COMPREHENSIVE METABOLIC PANEL+C.LAB.BRZ ordered. EDMS EDMS 11:16 11:16 LIPASE+C.LAB.BRZ ordered. EDMS EDMS 11:16 11:16 Test, Urine+UC.LAB.BRZ ordered. EDMS EDMS 11:16 11:16 Urinalysis+U.LAB.BRZ ordered. EDMS EDMS 11:16 11:16 TYPE AND SCREEN+BB.LAB.BRZ ordered. EDMS EDMS 15:28 12:46 Dr. deleon bp
[2024-02-05 12:50] LABS: Blood Morphology Comment NOT SEEN (NOT SEEN); Platelet Estimate DECR; White Blood Cell Scan OK (OK)
--- NOTE | 2024-02-05 13:09 | RAD REPORT ---
EXAM DESCRIPTION: CT - Abdomen Pelvis W Contrast - 02/05/2024 12:43 pm CLINICAL HISTORY: vomiting;Abd pain COMPARISON: No comparisons TECHNIQUE: Thin cut axial CT imaging of the abdomen and pelvis was performed following intravenous a dministration of 100 mL Isovue 300. Multiplanar reformats were generated and reviewed. All CT scans are performed using dose optimization technique as appropriate and may include automated exposure control or mA/KV adjustment according to patient size. FINDINGS: No suspicious findings in the lung bases. The liver, spleen, adrenal glands, and pancreas show no suspicious findings. Gallbladder shows few sm all calcified stones. Symmetric renal function is seen with no hydronephrosis or suspicious renal mass. No dilated bowel loops or bowel wall thickening. No free air, free fluid or inflammatory stranding. N o hernia, mass or bulky lymphadenopathy. The urinary bladder is without significant finding. Tampon l ocated somewhat proximally along the vagina. No suspicious bony findings. Asymmetric disc osteophyte complex on the left at L5-S1 contributes to n eural foraminal and lateral recess narrowing. IMPRESSION: No acute intra-abdominal process. Cholelithiasis. Asymmetric disc osteophyte complex on the left at L5-S1 contributes to neural foraminal and lateral r ecess narrowing. Please correlate for relevant neurologic symptoms.
[2024-02-05 17:45] VITALS: TEMP 99.5
[2024-02-05 18:21] VITALS: BP 123/86; O2SAT 97
== END 2024-02-05 15:28 | disposition short-term general hospital (02) ==
LOC: ER 10:56
DX: R73.9 Hyperglycemia, unspecified (principal); D69.6 Thrombocytopenia, unspecified; Z88.0 Allergy status to penicillin; Z88.1 Allergy status to other antibiotic agents
CPT/HCPCS: 87088; 85025; 81001; 87086; 36415; 86900; 86850; 81025; 86901; 83690; 80053; 74177; 96372; 96374; 99285; Q9967; J1815; J2930

== ENCOUNTER 2024-03-07 07:54 | Emergency (ER) | payer BC ==
[2024-03-07] MEDS ORDERED: KETOROLAC 30 MG/ML INJ ONE (08:11)
[2024-03-07] MEDS ORDERED: CYCLOBENZAPRINE 10 MG TAB ONE (08:12)
--- NOTE | 2024-03-07 09:42 | RAD REPORT ---
[facility] 9[facility]34 [facility] CLINICAL HISTORY: PAIN COMPARISON: Chest Single View dated 04/17/2020; Chest Single View dated 04/12/2020 TECHNIQUE: Portable AP view of the chest. FINDINGS: The lungs are clear. No pneumothorax or effusion. The cardiomediastinal contours are unre markable. IMPRESSION: No acute cardiopulmonary process.
--- NOTE | 2024-03-07 10:24 | RAD REPORT ---
EXAM DESCRIPTION: Ribs Right - 03/07/2024 9:34 am CLINICAL HISTORY: RIB PAIN - RIGHT COMPARISON: Chest Single View dated 03/07/2024 TECHNIQUE: Right ribs, 3 views. FINDINGS: No displaced rib fracture is evident. No aggressive rib lesion. No underlying pneumothorax, effusion, infiltrate or pulmonary contusion. IMPRESSION: Negative right rib series.
--- NOTE | 2024-03-07 10:26 | ER ---
Nurse's Notes [facility] Name: Valarie Michelle Age: 38 yrs Sex: Female : 1985 Arrival Date: 03/07/2024 Time: 07:54 Bed 15 Private MD: Diagnosis: Right intercostal muscle strain Presentation: 03/07 08:06 Chief complaint: Patient states: R rib cage pains since chiropractor visit on Thursday. ll1 Coronavirus screen: Client denies travel out of the [place] in the last 14 days. At this time, the client does not indicate any symptoms associated with coronavirus-19. Ebola Screen: Patient denies travel to an Ebola-affected area in the 21 days before illness onset. Initial Sepsis Screen: Does the patient meet any 2 criteria? No. Patient's initial sepsis screen is negative. Does the patient have a suspected source of infection? No. Patient's initial sepsis screen is negative. Risk Assessment: Do you want to hurt yourself or someone else? Patient reports no desire to harm self or others. Onset of symptoms was March 05, 2024. 08:06 Method Of Arrival: Ambulatory 1 08:06 Acuity: MIRA 4 ll1 Historical: - Allergies: 08:05 Ceclor; ll1 08:05 PENICILLINS; ll1 - PMHx: 08:05 gestational diabetes; ll1 - Immunization history:: Adult Immunizations up to date. - Infectious Disease History:: Denies. - Social history:: Smoking status: Patient denies any tobacco usage or history of. Screenin:20 [facility] ED Fall Risk Assessment (Adult) History of falling in the last 3 months, ph including since admission No falls in past 3 months (0 pts) Confusion or Disorientation No (0 pts) Intoxicated or Sedated No (0 pts) Impaired Gait No (0 pts) Mobility Assist Device Used No (0 pt) Altered Elimination No (0 pt) Score/Fall Risk Level 0 - 2 = Low Risk Oriented to surroundings, Maintained a safe environment, Hourly rounding (assess needs \T\ fall precautionary measures) done. Abuse screen: Denies threats or abuse. Denies injuries from another. Nutritional screening: No deficits noted. Tuberculosis screening: No symptoms or risk factors identified. Assessment: 08:21 General: Appears in no apparent distress. Behavior is calm, cooperative. Pain: ph Complains of pain in right lateral posterior chest and right lateral anterior chest. Neuro: Level of Consciousness is awake, alert, obeys commands, Oriented to person, place, time, situation. Derm: Skin is pink, warm \T\ dry. Vital Signs: 08:06 BP 128 / 90; Pulse 82; Resp 17; Temp 97.4; Pulse Ox 97% ; Weight 86.18 kg; Height 5 ft. ll1 4 in. ; 10:48 BP 118 / 79; Pulse 72; Resp 18; Temp 97.9; Pulse Ox 99% on R/A; ph 08:06 Body Mass Index 32.61 (86.18 kg, 162.56 cm) ll1 ED Course: 07:56 Patient arrived in ED. 4 07:59 [facility]enes [facility] jh7 07:59 Nathan Viera MD is Attending Physician. 7 08:01 Keily Peraza, RN is Primary Nurse. ph 08:05 Arm band placed on Patient placed in an exam room, on a stretcher. ll1 08:07 Triage completed. ll1 08:21 Patient has correct armband on for positive identification. Bed in low position. Call ph light in reach. Side rails up X 1. Pulse ox on. NIBP on. Door closed. Noise minimized. Warm blanket given. Pillow given. 08:21 No provider procedures requiring assistance completed. Patient did not have IV access ph during this emergency room visit. 09:33 X-ray completed. Patient tolerated procedure well. Patient moved back from radiology. 1 09:34 XRAY Chest (1 view) In Process Unspecified. EDMS 09:34 XRAY Ribs RIGHT In Process Unspecified. EDMS Administered Medications: 08:20 Drug: Ketorolac IM 30 mg IM once Route: IM; Site: right deltoid; ph 10:48 Follow up: Response: No adverse reaction; Pain is decreased ph 08:20 Drug: Cyclobenzaprine PO 10 mg PO once Route: PO; ph 10:48 Follow up: Response: No adverse reaction ph Medication: 08:21 VIS not applicable for this client. ph Outcome: 10:25 Discharge ordered by . [facility] 10:48 Discharged to home ambulatory, ph 10:48 Condition: good 10:48 Discharge instructions given to patient, Instructed on discharge instructions, follow up and referral plans. medication usage, Demonstrated understanding of instructions, follow-up care, medications, Prescriptions given X 3, 10:49 Patient left the ED. ph Signatures: Dispatcher [employer] EDMasha Powell 1 Keily Peraza, RN Valerie Evans ph4 Margy Degroot RN RN 1 Malu Jimenes, BLISTER PACK OPERATOR BLISTER PACK OPERATOR 7 Corrections: (The following items were deleted from the chart) 08:19 08:06 Resp 17bpm; [place] [id number]
--- NOTE | 2024-03-07 10:26 | EDPHYS ---
Physician Documentation [facility] Name: Valarie Michelle Age: 38 yrs Sex: Female : 1985 Arrival Date: 03/07/2024 Time: 07:54 Bed 15 Private MD: ED Physician Nathan Viera HPI: 03/07 08:06 This 38 yrs old Female presents to ER via Ambulatory with complaints of Rib [facility] Pain. 08:06 38-year-old female with a past medical history of diabetes presents to the ER [facility] complaining of right rib pain intermittently for the past 3 weeks. The patient reports that 3 weeks ago she saw a chiropractor who told her that her rib was out of place. She reports that the pain improved but that due to tension in her neck and shoulder she returned to the chiropractor on Thursday. She reports that when he manipulated her right ribs she felt a pop and tearing sensation and has been in severe pain since then. Denies chest pain, shortness of breath, syncope, dizziness, or any other symptoms at this time.. Historical: - Allergies: 08:05 Ceclor; ll1 08:05 PENICILLINS; ll1 - PMHx: 08:05 gestational diabetes; ll1 - Immunization history:: Adult Immunizations up to date. - Infectious Disease History:: Denies. - Social history:: Smoking status: Patient denies any tobacco usage or history of. ROS: 08:06 Constitutional: Per HPI 7 Exam: 08:06 Constitutional: This is a well developed, well nourished patient who is awake, alert, jh7 and in no acute distress. Head/Face: Normocephalic, atraumatic. Neck: Trachea midline, no thyromegaly or masses palpated, and no cervical lymphadenopathy. Supple, full range of motion without nuchal rigidity, or vertebral point tenderness. No Meningismus. Cardiovascular: Regular rate and rhythm with a normal S1 and S2. No gallops, murmurs, or rubs. Normal PMI, no JVD. No pulse deficits. Respiratory: Lungs have equal breath sounds bilaterally, clear to auscultation and percussion. No rales, rhonchi or wheezes noted. No increased work of breathing, no retractions or nasal flaring. Abdomen/GI: Soft, non-tender, with normal bowel sounds. No distension or tympany. No guarding or rebound. No evidence of tenderness throughout. Back: No spinal tenderness. No costovertebral tenderness. Full range of motion. Skin: Warm, dry with normal turgor. Normal color with no rashes, no lesions, and no evidence of cellulitis. MS/ Extremity: Pulses equal, no cyanosis. Neurovascular intact. Full, normal range of motion. Neuro: Awake and alert, GCS 15, oriented to person, place, time, and situation. Motor strength 5/5 in all extremities. Sensory grossly intact. Normal gait. 08:06 Chest/axilla: Inspection: normal, Palpation: tenderness, that is moderate, of the right lateral anterior chest and right lateral posterior chest, that totally reproduces the patient's complaints, Vital Signs: 08:06 BP 128 / 90; Pulse 82; Resp 17; Temp 97.4; Pulse Ox 97% ; Weight 86.18 kg; Height 5 ft. ll1 4 in. ; 10:48 BP 118 / 79; Pulse 72; Resp 18; Temp 97.9; Pulse Ox 99% on R/A; ph 08:06 Body Mass Index 32.61 (86.18 kg, 162.56 cm) ll1 MDM: 07:59 Patient medically screened. [facility] 10:27 Differential diagnosis: Costochondritis, rib fracture, chest wall strain, intercostal jh7 muscle strain, pneumonia. Data reviewed: vital signs, nurses notes, radiologic studies, plain films. I considered the following discharge prescriptions or medication management in the emergency department Medications were administered in the Emergency Department. See MAR. Independent interpretation of the following test(s) in the Emergency Department X-Ray: My interpretation is No acute findings. Counseling: I had a detailed discussion with the patient and/or guardian regarding the historical points, exam findings, and any diagnostic results supporting the discharge/admit diagnosis, to return to the emergency department if symptoms worsen or persist or if there are any questions or concerns that arise at home. 03/07 08:08 Order name: XRAY Chest (1 view); Complete Time: 09:47 [facility] 03/07 08:08 Order name: XRAY Ribs RIGHT; Complete Time: 10:24 [facility] Administered Medications: 08:20 Drug: Ketorolac IM 30 mg IM once Route: IM; Site: right deltoid; ph 10:48 Follow up: Response: No adverse reaction; Pain is decreased ph 08:20 Drug: Cyclobenzaprine PO 10 mg PO once Route: PO; ph 10:48 Follow up: Response: No adverse reaction ph Disposition: 11:22 Co-signature as Attending Physician, Nathan Viera MD I reviewed the patient's care rn provided by the Advanced Practice Provider and agree with the diagnosis and treatment plan. Disposition Summary: 03/07/24 10:25 Discharge Ordered Notes: Location: Home [facility] Problem: new [facility] Symptoms: have improved [facility] Condition: Stable [facility] Diagnosis - Right intercostal muscle strain [facility] Followup: [facility] - With: Private Physician - When: 2 - 3 days - Reason: Recheck today's complaints Discharge Instructions: - Discharge Summary Sheet [facility] - Chest Wall Pain [facility] - Muscle Strain [facility] Forms: - Work release form ph - Medication Reconciliation Form [facility] - Prescription Opioid Use [facility] - Patient Portal Instructions [facility] - Leadership Thank You Letter [facility] Prescriptions: - Naprosyn 500 mg Oral Tablet - take 1 tablet ORAL route 2 times per day take with food; 30 tablet; Refills: 0, [facility] Product Selection Permitted - Zanaflex 4 mg Oral Tablet - take 1 tablet ORAL route every 8 hours As needed; 20 tablet; Refills: 0, [facility] Product Selection Permitted - Tramadol 50 mg Oral Tablet - take 1 tablet ORAL route every 8 hours as needed; 12 tablet; Refills: 0, 7 Product Selection Permitted Signatures: Dispatcher [employer] EDNathan Castellano MD MD rn Hall, Patricia, RN RN ph Lewis, Lynsay, RN RN [facility] Malu Jimenes FNP [place] [id number] Corrections: (The following items were deleted from the chart) 08:08 08:08 Ribs Right+RAD.RAD.BRZ ordered. EDRI EDRI
[2024-03-07 11:23] VITALS: BP 118/79; TEMP 97.9; O2SAT 99
== END 2024-03-07 10:49 | disposition home or self-care (01) ==
LOC: ER 07:54
DX: S29.011A Strain of muscle and tendon of front wall of thorax, initial encounter (principal); Z88.0 Allergy status to penicillin; Z88.1 Allergy status to other antibiotic agents
CPT/HCPCS: 71045; 96372; 99284

== ENCOUNTER 2024-04-19 01:28 | Emergency (ER) | payer BC ==
[2024-04-19] MEDS ORDERED: MORPHINE 4 MG/ML SYR ONE (02:23)
[2024-04-19] MEDS ORDERED: NA CHLORIDE 0.9% 1,000 ML ONE (02:23)
[2024-04-19] MEDS ORDERED: ONDANSETRON 4 MG/2 ML VIAL ONE (02:23)
[2024-04-19 02:41] LABS: Absolute Basophils 0.1 K/uL (0-0.5); Absolute Eosinophils 0.1 K/uL (0-0.5); Absolute Lymphocytes (CBC) 1.9 K/uL (0.7-4.9); Absolute Monocytes 1.1 K/uL (0.1-1.3); Absolute Neutrophil 6.8 K/uL (1.8-8.0); Basophils % 0.6 % (0-1.3); Eosinophils % 1.4 % (0-4.4); Hematocrit 44.2 % (36.0-45.0); Hemoglobin 14.7 g/dL (12.0-15.0); Lymphocytes % 19.2 % (15.3-44.8); MCH 27.4 pg (27.0-35.0); MCHC 33.1 g/dL (32.0-36.0); MCV 82.8 fL (80-100); MPV 9.3 fL (7.6-11.3); Neutrophils % 67.8 % (41.7-73.7); Platelets 287 thou/uL (152-406); RBC Red Blood Cell Count 5.34 M/uL (3.86-4.86); Red Cell Distribution Width 14.5 % (12.1-15.2)
[2024-04-19 02:51] LABS: ALT/SGPT 53 U/L (13-56); Albumin 3.5 g/dL (3.4-5.0); Alkaline Phosphatase 103 U/L (45-117); Anion Gap 8.5 mEq/L (5.0-15.0); BUN Blood Urea Nitrogen 13 mg/dL (7-18); Bicarbonate 26 mEq/L (21-32); Bilirubin Total 0.8 mg/dL (0.2-1.0); Globulin 3.5 g/dL (2.3-3.5); Glomerular Filtration Rate 105 ml/min (=/>90); Glucose Level 284 mg/dL (74-106); Lipase 21 U/L (13-75); Potassium 3.5 mEq/L (3.5-5.1); Sodium Level 137 mEq/L (136-145)
[2024-04-19 02:52] LABS: AST/SGOT < 10 U/L (15-37)
[2024-04-19 03:21] LABS: Specific Gravity 1.024 (1.005-1.030)
[2024-04-19 03:23] LABS: Specific Gravity 1.024 (1.005-1.030); Sqamous Epithelial <5 /HPF (None Seen); Urine Bacteria 20-50 /HPF (<20); Urine Bilirubin NEGATIVE (Negative); Urine Blood 3+ (OVER) (Negative); Urine Clarity Extremely Turbid (Clear); Urine Color Dark-Brown (Yellow); Urine Culture Reflex Order REFLEXED; Urine Glucose 4+ (Over) (Negative); Urine Ketones TRACE (Negative); Urine Microscopic Reflex YN ORDER UMIC; Urine Mucus 2+ /HPF (None Seen); Urine Nitrite NEGATIVE (Negative); Urine Protein 3+ (Negative); Urine RBC >50 /HPF (None Seen); Urine Urobilinogen Normal (Normal); Urine WBC >50 /HPF (<5); Urine pH 6.5 (5.0-7.0)
[2024-04-19] MEDS ORDERED: FENTANYL CITR 100 MCG/2 ML ONE (04:06)
[2024-04-19] MEDS ORDERED: CIPROFLOXACIN 400mg IV 400 MG/200 ML BAG IV ONE (04:11)
--- NOTE | 2024-04-19 05:38 | ER ---
Nurse's Notes [facility] Name: Valarie Michelle Age: 38 yrs Sex: Female : 1985 Arrival Date: 04/19/2024 Time: 01:28 Bed 13 Private MD: Diagnosis: UTI/ Urinary tract infection, site not specified;Lower abdominal pain, unspecified Presentation: 04/19 01:47 Chief complaint: Patient states: tingling with urination, lower left abdominal pain, vc1 little blood in urine. Coronavirus screen: Vaccine status: Patient reports being unvaccinated. Client denies travel out of the [place] in the last 14 days. At this time, the client does not indicate any symptoms associated with coronavirus-19. Ebola Screen: Patient negative for fever greater than or equal to 101.5 degrees Fahrenheit, and additional compatible Ebola Virus Disease symptoms Patient denies exposure to infectious person. Patient denies travel to an Ebola-affected area in the 21 days before illness onset. No symptoms or risks identified at this time. Initial Sepsis Screen: Does the patient meet any 2 criteria? No. Patient's initial sepsis screen is negative. Does the patient have a suspected source of infection? No. Patient's initial sepsis screen is negative. Risk Assessment: Do you want to hurt yourself or someone else? Patient reports no desire to harm self or others. Onset of symptoms was April 19, 2024. 01:47 Method Of Arrival: Ambulatory vc1 01:47 Acuity: MIRA 3 vc1 Triage Assessment: 01:55 General: Appears in no apparent distress. uncomfortable, well groomed, well developed, vc1 Behavior is calm, cooperative, appropriate for age. Pain: Complains of pain in suprapubic area, left inguinal area and left iliac crest Pain does not radiate. Pain currently is 8 out of 10 on a pain scale. Quality of pain is described as pressure, radiating. Neuro: Level of Consciousness is awake, alert, obeys commands, Oriented to person, place, time, situation, Appropriate for age. : Reports urgency, urinary frequency, tingling with urination, blood in urine. Derm: Skin is intact, is healthy with good turgor, Skin is dry, Skin is normal. 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 Flu vaccine is not up to date. - Infectious Disease History:: Denies. - Social history:: Smoking status: Patient denies any tobacco usage or history of. Screenin:57 [facility] ED Fall Risk Assessment (Adult) History of falling in the last 3 months, vc1 including since admission No falls in past 3 months (0 pts) Confusion or Disorientation No (0 pts) Intoxicated or Sedated No (0 pts) Impaired Gait No (0 pts) Mobility Assist Device Used No (0 pt) Altered Elimination No (0 pt) Score/Fall Risk Level 0 - 2 = Low Risk Oriented to surroundings, Maintained a safe environment, Educated pt \T\ family on fall prevention, incl call for assistance when getting out of bed. Abuse screen: Denies threats or abuse. Nutritional screening: No deficits noted. Tuberculosis screening: No symptoms or risk factors identified. Assessment: 04:53 Reassessment: Patient appears in no apparent distress at this time. Patient and/or vc1 family updated on plan of care and expected duration. Pain level reassessed. Patient is alert, oriented x 3, equal unlabored respirations, skin warm/dry/pink. Patient states feeling better. Patient states symptoms have improved. Vital Signs: 01:47 BP 132 / 88; Pulse 120; Resp 18; Temp 98.9; Pulse Ox 100% ; vc1 04:53 BP 138 / 84; Pulse 105; Resp 17; Pulse Ox 97% ; vc1 05:53 BP 112 / 73; Pulse 101; Resp 16; Pulse Ox 100% ; vc1 ED Course: 01:30 Patient arrived in ED. jj6 01:33 Sohan Gutiérrez MD is Attending Physician. ec2 01:49 Triage completed. vc1 01:55 Arm band placed on right wrist. vc1 01:57 Patient has correct armband on for positive identification. Bed in low position. Call vc1 light in reach. Pulse ox on. NIBP on. 02:29 Inserted saline lock: 20 gauge in left antecubital area, using aseptic technique. Blood rc3 collected. 02:29 CBC with Diff Sent. rc3 02:29 CMP Sent. rc3 02:30 Test, Urine Sent. rc3 02:30 Urinalysis w/ reflexes Sent. rc3 03:43 CT Abd/Pelvis - IV Contrast Only In Process Unspecified. EDMS 04:53 Jasmina Junior, RN is Primary Nurse. vc1 05:51 No provider procedures requiring assistance completed. IV discontinued, intact, vc1 bleeding controlled, No redness/swelling at site. Pressure dressing applied. 05:53 Provided Education on: complete ABX. vc1 Administered Medications: 02:30 Drug: NS 0.9% IV 1000 ml IV at 1 bolus Per protocol; 1000 mL bolus Route: IV; Rate: 1 vc1 bolus; Site: left antecubital; 05:52 Follow up: IV Status: Completed infusion; IV Intake: 1000ml vc1 02:30 Drug: Ondansetron IVP 4 mg IVP once; over 2 minutes Route: IVP; Site: left antecubital; vc1 05:52 Follow up: Response: No adverse reaction; Marked relief of symptoms vc1 02:30 Drug: morphine IVP or IV 4 mg IVP once over 4 mins Route: IVP; Infused Over: 4 mins; vc1 Site: left antecubital; 05:53 Follow up: Response: No adverse reaction; Marked relief of symptoms vc1 04:27 Drug: Ciprofloxacin IVPB 400 mg 200 ml IVPB once over 60 mins Volume: 200 ml; Route: lg3 IVPB; Infused Over: 60 mins; Site: left antecubital; 05:52 Follow up: IV Intake: 100ml vc1 05:52 Follow up: IV Status: Completed infusion; IV Intake: 100ml vc1 04:28 Drug: fentaNYL (PF) IVP 100 mcg IVP once Route: IVP; Site: left antecubital; lg3 05:52 Follow up: Response: No adverse reaction; Marked relief of symptoms vc1 Medication: 04:53 VIS not applicable for this client. vc1 Intake: 05:52 IV: 100ml; Total: 100ml. vc1 05:52 IV: 1000ml; Total: 1100ml. vc1 05:52 IV: 100ml; Total: 1200ml. vc1 Outcome: 05:37 Discharge ordered by . ec2 05:53 Discharged to home ambulatory, vc1 05:53 Condition: improved 05:53 Discharge instructions given to patient, Instructed on discharge instructions, follow up and referral plans. medication usage, Demonstrated understanding of instructions, follow-up care, medications, Prescriptions given X 1, 05:53 Patient left the ED. vc1 Signatures: Dispatcher [employer] EDPromise Jarrett RN RN lg3 Malu Hagenj6 Jasmina Junior RN RN vc1 Sohan Gutiérrez MD MD ec2 Cherie Bloom 3
--- NOTE | 2024-04-19 05:38 | EDPHYS ---
Physician Documentation [facility] Name: Valarie Michelle Age: 38 yrs Sex: Female : 1985 Arrival Date: 04/19/2024 Time: 01:28 Bed 13 Private MD: ED Physician Sohan Gutiérrez HPI: 04/19 01:46 This 38 yrs old Female presents to ER via Unassigned with complaints of Pelvic ec2 Pain, Pain With Urination. 01:46 Patient arrives today for evaluation of left lower quadrant abdominal pain. Patient ec2 reports that she has been having some increased urinary frequency, also having left flank pain. Patient reports associated nausea, no vomiting. Patient denies any bowel issues. Reports no history of previous abdominal surgeries.. 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 Flu vaccine is not up to date. - Infectious Disease History:: Denies. - Social history:: Smoking status: Patient denies any tobacco usage or history of. ROS: 01:46 Constitutional: as per hpi ec2 Exam: 01:46 Constitutional: GEN: NAD Head: atraumatic Eyes: EOMI Ears: External ears are ec2 normal. CV: Tachycardia LUNGS: no respiratory distress ABD: non-distended, soft, tender left lower quadrant, no guarding, not rigid, mild CVA TTP on the left side SKIN: no evidence of rashes MSK: no evidence of trauma NEURO: moves all extremities equally Vital Signs: 01:47 BP 132 / 88; Pulse 120; Resp 18; Temp 98.9; Pulse Ox 100% ; vc1 04:53 BP 138 / 84; Pulse 105; Resp 17; Pulse Ox 97% ; vc1 05:53 BP 112 / 73; Pulse 101; Resp 16; Pulse Ox 100% ; vc1 MDM: 01:38 Patient medically screened. ec2 01:46 Data reviewed: vital signs. ED course: Patient arrives today for evaluation of left ec2 lower quadrant abdominal pain and left leg pain with abdominal findings as noted above. Will obtain lab work, CT imaging and treat the patient symptoms. Differential diagnosis include process such as diverticulitis, urinary tract infection, pyelonephritis, ureteral stone. . 01:47 ED course: Of note patient is tachycardic, reports that she has previously been told ec2 this, seeing cardiology and is supposed to be on medications for her tachycardia of unknown origin. 03:13 ED course: CBC is reassuring. Metabolic profile with appropriate electrolytes and renal ec2 function. Lipase within normal ranges. Pending CT imaging and urine studies. . 03:52 ED course: Urine infectious appearing, will give the patient antibiotics. . ec2 05:29 ED course: CBC is reassuring without leukocytosis. Metabolic profile with appropriate ec2 electrolytes and renal function. Urine infectious appearing. CT imaging shows inflammatory changes of the ureters, consistent with urinary tract infection bilaterally. On reassessment patient with improving vital signs. Patient with known diagnosis of tachycardia. Will discharge home with antibiotics. Return precautions given. . 05:40 ED course: MDM: Differential diagnosis as documented above in ED course; All lab tests ec2 ordered and reviewed as documented above; Parenteral controlled substances: Yes; Discuss inpatient hospitalization: Yes; . 04/19 01:46 Order name: CBC with Diff; Complete Time: 03:12 ec2 04/19 01:46 Order name: CMP; Complete Time: 03:12 ec2 04/19 01:46 Order name: Lipase; Complete Time: 03:12 ec2 04/19 01:46 Order name: Test, Urine; Complete Time: 03:50 ec2 04/19 01:46 Order name: Urinalysis w/ reflexes; Complete Time: 03:50 ec2 04/19 03:26 Order name: Urine Culture EDWY 04/19 01:46 Order name: CT Abd/Pelvis - IV Contrast Only ec2 04/19 01:46 Order name: IV Saline Lock; Complete Time: 02:29 ec2 04/19 01:46 Order name: Labs collected and sent; Complete Time: 02: ec2 Administered Medications: 02:30 Drug: NS 0.9% IV 1000 ml IV at 1 bolus Per protocol; 1000 mL bolus Route: IV; Rate: 1 vc1 bolus; Site: left antecubital; 05:52 Follow up: IV Status: Completed infusion; IV Intake: 1000ml vc1 02:30 Drug: Ondansetron IVP 4 mg IVP once; over 2 minutes Route: IVP; Site: left antecubital; vc1 05:52 Follow up: Response: No adverse reaction; Marked relief of symptoms vc1 02:30 Drug: morphine IVP or IV 4 mg IVP once over 4 mins Route: IVP; Infused Over: 4 mins; vc1 Site: left antecubital; 05:53 Follow up: Response: No adverse reaction; Marked relief of symptoms vc1 04:27 Drug: Ciprofloxacin IVPB 400 mg 200 ml IVPB once over 60 mins Volume: 200 ml; Route: lg3 IVPB; Infused Over: 60 mins; Site: left antecubital; 05:52 Follow up: IV Intake: 100ml vc1 05:52 Follow up: IV Status: Completed infusion; IV Intake: 100ml vc1 04:28 Drug: fentaNYL (PF) IVP 100 mcg IVP once Route: IVP; Site: left antecubital; lg3 05:52 Follow up: Response: No adverse reaction; Marked relief of symptoms vc1 Disposition Summary: 04/19/24 05:37 Discharge Ordered Notes: Location: Home ec2 Condition: Stable ec2 Diagnosis - UTI/ Urinary tract infection, site not specified ec2 - Lower abdominal pain, unspecified ec2 Followup: ec2 - With: Private Physician - When: - Reason: Re-evaluation by your physician Discharge Instructions: - Discharge Summary Sheet ec2 - Urinary Tract Infection, Adult, [id number] ec2 Forms: - Work release form ec2 - Medication Reconciliation Form ec2 - Antibiotic Education ec2 - Prescription Opioid Use ec2 - Patient Portal Instructions ec2 - Leadership Thank You Letter ec2 Prescriptions: - acetaminophen-codeine 300-15 mg Oral tablet - take 1 tablet ORAL route 4 times per day; 15 tablet; Refills: 0, Product ec2 Selection Permitted - Cipro 500 mg Oral Tablet - take 1 tablet ORAL route every 12 hours for 7 days; 14 tablet; Refills: 0, ec2 Product Selection Permitted Signatures: Dispatcher [employer] Promise Anne RN RN lg3 Jasmina Junior RN RN vc1 Sohan Gutiérrez MD MD ec2 Corrections: (The following items were deleted from the chart) 01:46 01:46 CBC+H.LAB.BRZ ordered. EDMS EDMS 01:46 01:46 COMPREHENSIVE METABOLIC PANEL+C.LAB.BRZ ordered. EDMS EDMS 01:46 01:46 LIPASE+C.LAB.BRZ ordered. EDMS EDMS 01:46 01:46 Test, Urine+UC.LAB.BRZ ordered. EDMS EDMS 01:46 01:46 Urinalysis+U.LAB.BRZ ordered. EDMS EDMS 01:47 01:46 Constitutional: GEN: NAD Head: atraumatic Eyes: EOMI Ears: External ears are ec2 normal. CV: regular rate LUNGS: no respiratory distress ABD: non-distended, soft, tender left lower quadrant, no guarding, not rigid, mild CVA TTP on the left side SKIN: no evidence of rashes MSK: no evidence of trauma NEURO: moves all extremities equally ec2
[2024-04-19 10:44] VITALS: BP 112/73; TEMP 98.9; O2SAT 100
--- NOTE | 2024-04-19 17:12 | RAD REPORT ---
EXAM DESCRIPTION: CT - Abdomen Pelvis W Contrast - 04/19/2024 6:42 am CLINICAL HISTORY: ABD PAIN COMPARISON: 02/05/2024. TECHNIQUE: CT ABDOMEN PELVIS WITH IV CONTRAST on 04/19/2024 1:46 AM CDT This exam was performed according to our departmental dose-optimization program, which includes autom ated exposure control, adjustment of the mA and/or kV according to patient size and/or use of iterati ve reconstruction technique. FINDINGS: Lower lungs are clear. Abdomen: The liver is normal in appearance. There is no biliary dilatation. Gallbladder contains dav ral small gallstones. The pancreas and spleen are normal in appearance. Adrenal glands and kidneys ar e unremarkable. There is enhancement of the bilateral ureteral urothelium with mild surrounding infla mmation. Abdominal aorta is normal in course and caliber without aneurysm. There is no free air. There is no r etroperitoneal adenopathy. Pelvis: There is no bowel obstruction. Urinary bladder is unremarkable. There is no free fluid. Uteru s is normal in size. Appendix is normal. Skeleton: There are no acute osseous findings. No suspicious bony lesions. IMPRESSION: Infectious or inflammatory changes involving both ureters without hydronephrosis or foca l renal abnormalities. Electronically signed by: Varinder Marquez MD 04/19/2024 05:15 AM CDT RP Due to temporary technical issues with the PACS/Fluency reporting system, reports are being signed by the in house radiologists without review as a courtesy to insure prompt reporting. The interpreting radiologist is fully responsible for the content of the report.
== END 2024-04-19 05:53 | disposition home or self-care (01) ==
LOC: ER 01:28
DX: N39.0 Urinary tract infection, site not specified (principal)
CPT/HCPCS: 87088; 85025; 81001; 87086; 36415; 81025; 83690; 80053; 74177; Q9967; J3010; J2405; J0744; J7030

== ENCOUNTER 2024-09-25 11:30 | Emergency (ER) | payer OTHER ==
--- NOTE | 2024-09-25 11:45 | ER ---
Nurse's Notes [facility] Name: Valarie Michelle Age: 38 yrs Sex: Female : 1985 Arrival Date: 09/25/2024 Time: 11:30 Bed IW1 Private MD: Diagnosis: Local infection of the skin and subcutaneous tissue, unspecified Presentation: 09/25 11:41 Chief complaint: Patient states: pain and inflammation to L great toe. Coronavirus ss screen: Client denies travel out of the [place] in the last 14 days. Ebola Screen: Patient denies exposure to infectious person. Patient denies travel to an Ebola-affected area in the 21 days before illness onset. Initial Sepsis Screen: Does the patient meet any 2 criteria? No. Patient's initial sepsis screen is negative. Does the patient have a suspected source of infection? No. Patient's initial sepsis screen is negative. Risk Assessment: Do you want to hurt yourself or someone else? Patient reports no desire to harm self or others. Onset of symptoms is unknown. 11:41 Method Of Arrival: Ambulatory ss 11:41 Acuity: MIRA 4 ss Historical: - Allergies: 11:42 Bactrim; ss 11:42 Ceclor; ss 11:42 PENICILLINS; ss - PMHx: 11:42 diabetes mellitus; gestational diabetes; Hypertensive disorder; ss Screenin:42 [facility] ED Fall Risk Assessment (Adult) History of falling in the last 3 months, ss including since admission No falls in past 3 months (0 pts) Confusion or Disorientation No (0 pts) Intoxicated or Sedated No (0 pts) Impaired Gait No (0 pts) Mobility Assist Device Used No (0 pt) Altered Elimination No (0 pt) Score/Fall Risk Level 0 - 2 = Low Risk Oriented to surroundings, Maintained a safe environment. Abuse screen: Denies threats or abuse. Denies injuries from another. Nutritional screening: No deficits noted. Tuberculosis screening: Never had TB. Assessment: 11:42 General: Appears in no apparent distress. comfortable, Behavior is calm, cooperative. ss Pain: Complains of pain in left first toe Pain currently is 3 out of 10 on a pain scale. at worst was 9 out of 10 on a pain scale. Quality of pain is described as tender, Is continuous. Neuro: Level of Consciousness is awake, alert, obeys commands. Respiratory: Airway is patent Respiratory effort is even, unlabored, Respiratory pattern is regular, symmetrical. Derm: Skin is pink, warm \T\ dry. normal. Vital Signs: 11:41 BP 115 / 91; Pulse 91; Resp 16; Temp 97.7(O); Pulse Ox 100% on R/A; Pain 3/10; ss 11:41 Pain Scale: Adult ss ED Course: 11:33 Patient arrived in ED. mr 11:33 [facility]int[facility]ced[facility] kb 11:33 Jose Matthews MD is Attending Physician. kb 11:42 Triage completed. ss 11:42 Arm band placed on right wrist. ss 11:42 Patient has correct armband on for positive identification. ss 11:44 Gabriel Berger DPM is Referral Physician. kb 11:49 Alessandra Pace, RN is Primary Nurse. ss 11:49 No provider procedures requiring assistance completed. Patient did not have IV access ss during this emergency room visit. Administered Medications: No medications were administered Medication: 11:42 VIS not applicable for this client. ss Outcome: 11:44 Discharge ordered by . kb 11:49 Discharged to home ambulatory, ss 11:49 Condition: good 11:49 Discharge instructions given to patient, Instructed on discharge instructions, follow up and referral plans. medication usage, Demonstrated understanding of instructions, follow-up care, medications, Prescriptions given X 1, 11:51 Patient left the ED. ss Signatures: Sintia Saucedo FNP-C FNP-Ckb Ioana Maravilla, Reg Reg Alessandra Pace, RN RN ss
--- NOTE | 2024-09-25 11:45 | EDPHYS ---
Physician Documentation [facility] Name: Valarie Michelle Age: 38 yrs Sex: Female : 1985 Arrival Date: 09/25/2024 Time: 11:30 Bed IW1 Private MD: ED Physician Jose Matthews HPI: 09/25 11:36 This 38 yrs old Female presents to ER via Unassigned with complaints of Toe kb Injury. 11:36 Pt is a 38 year old female who presents for left great toe pain. States she thinks she kb cut the nail too short. States the pain started 2-3 days ago and has been getting more and more sensitive. . Historical: - Allergies: 11:42 Bactrim; ss 11:42 Ceclor; ss 11:42 PENICILLINS; ss - PMHx: 11:42 diabetes mellitus; gestational diabetes; Hypertensive disorder; ss ROS: 11:40 Constitutional: As per HPI kb Exam: 11:40 Constitutional: This is a well developed, well nourished patient who is awake, alert, kb and in no acute distress. Head/Face: Normocephalic, atraumatic. ENT: Moist Mucous membranes Cardiovascular: Regular rate Respiratory: Respirations even and unlabored. No increased work of breathing. Talking in full sentences Skin: Warm, dry with normal turgor. Normal color. Neuro: Awake and alert, GCS 15, oriented to person, place, time, and situation. 11:40 Musculoskeletal/extremity: Extremities: grossly normal except: noted in the left first toe: pain, tenderness, ROM: intact in all extremities, Circulation is intact in all extremities. Sensation intact. Weight bearing: able to fully bear weight, Vital Signs: 11:41 BP 115 / 91; Pulse 91; Resp 16; Temp 97.7(O); Pulse Ox 100% on R/A; Pain 3/10; ss 11:41 Pain Scale: Adult ss MDM: 11:33 Medical Screening Exam initiated kb 11:42 Differential diagnosis: local infection of skin, paronychia, ingrown nail. Data kb reviewed: vital signs, nurses notes. Counseling: I had a detailed discussion with the patient and/or guardian regarding the historical points, exam findings, and any diagnostic results supporting the discharge/admit diagnosis, the need for outpatient follow up, a urologic surgeon, to return to the emergency department if symptoms worsen or persist or if there are any questions or concerns that arise at home. Administered Medications: No medications were administered Disposition Summary: 09/25/24 11:44 Discharge Ordered Notes: Location: Home kb Condition: Stable kb Diagnosis - Local infection of the skin and subcutaneous tissue, unspecified kb Followup: kb - With: Private Physician - When: 2 - 3 days - Reason: Recheck today's complaints, Continuance of care, Re-evaluation by your physician Followup: kb - With: Emergency Department - When: As needed - Reason: Worsening of condition Followup: kb - With: Gabriel Berger DPM - When: 2 - 3 days - Reason: Recheck today's complaints Discharge Instructions: - Discharge Summary Sheet kb - Cellulitis, Adult, [id number] kb - Wound Infection, [id number] kb Forms: - Medication Reconciliation Form kb - Antibiotic Education kb - Prescription Opioid Use kb - Patient Portal Instructions kb - Leadership Thank You Letter kb Prescriptions: - Doxycycline Hyclate 100 mg Oral Tablet - take 1 tablet ORAL route every 12 hours; 20 tablet; Refills: 0, Product kb Selection Permitted Signatures: Sintia Saucedo, TECHNOLOGY ADMINISTRATOR-C TECHNOLOGY ADMINISTRATOR-Alessandra Lange, RN RN ss
[2024-09-25 14:07] VITALS: BP 115/91; TEMP 97.7; O2SAT 100
== END 2024-09-25 11:51 | disposition home or self-care (01) ==
LOC: ER 11:30
DX: L08.9 Local infection of the skin and subcutaneous tissue, unspecified (principal)
CPT/HCPCS: 99283

== ENCOUNTER 2024-10-30 06:52 | Emergency (ER) | payer OTHER ==
--- NOTE | 2024-10-30 07:29 | EDPHYS ---
Physician Documentation [facility] Name: Valarie Michelle Age: 38 yrs Sex: Female : 1985 Arrival Date: 10/30/2024 Time: 06:52 Bed 14 Private MD: DAREN Physician Jose Matthews HPI: 10/30 07:23 This 38 yrs old Female presents to ER via Ambulatory with complaints of Toe elsa Injury. 07:23 The patient presents with pain, that is acute. The complaints affect the plantar aspect elsa of left first toe, left first toe and Left first toenail. Context: resulted from infection. Onset: The symptoms/episode began/occurred 3 day(s) ago. Modifying factors: The symptoms are alleviated by elevation of extremity, the symptoms are aggravated by weight bearing. Associated signs and symptoms: The patient has no apparent associated signs or symptoms. Severity of symptoms: At their worst the symptoms were moderate, in the emergency department the symptoms are unchanged. The patient has not experienced similar symptoms in the past. Historical: - Allergies: 07:12 Bactrim; bp 07:12 Ceclor; bp 07:12 PENICILLINS; bp - PMHx: 07:12 diabetes mellitus; gestational diabetes; Hypertensive disorder; bp - Immunization history:: Adult Immunizations up to date. - Infectious Disease History:: Denies. - Social history:: Smoking status: Patient denies any tobacco usage or history of. - Family history:: not pertinent. ROS: 07:23 Constitutional: Negative for fever, chills, and weight loss, Eyes: Negative for injury, elsa pain, redness, and discharge, ENT: Negative for injury, pain, and discharge, Neck: Negative for injury, pain, and swelling, Cardiovascular: Negative for chest pain, palpitations, and edema, Respiratory: Negative for shortness of breath, cough, wheezing, and pleuritic chest pain, Abdomen/GI: Negative for abdominal pain, nausea, vomiting, diarrhea, and constipation, Back: Negative for injury and pain, : Negative for injury, bleeding, discharge, and swelling, Neuro: Negative for headache, weakness, numbness, tingling, and seizure, Psych: Negative for depression, anxiety, suicide ideation, homicidal ideation, and hallucinations, Allergy/Immunology: Negative for hives, rash, and allergies, Endocrine: Negative for neck swelling, polydipsia, polyuria, polyphagia, and marked weight changes, Hematologic/Lymphatic: Negative for swollen nodes, abnormal bleeding, and unusual bruising, 07:23 MS/extremity: Positive for erythema, pain, swelling, tenderness, of the left foot, Exam: 07:23 Constitutional: This is a well developed, well nourished patient who is awake, alert, elsa and in no acute distress. Head/Face: Normocephalic, atraumatic. Eyes: Pupils equal round and reactive to light, extra-ocular motions intact. Lids and lashes normal. Conjunctiva and sclera are non-icteric and not injected. Cornea within normal limits. Periorbital areas with no swelling, redness, or edema. ENT: Nares patent. No nasal discharge, no septal abnormalities noted. Tympanic membranes are normal and external auditory canals are clear. Oropharynx with no redness, swelling, or masses, exudates, or evidence of obstruction, uvula midline. Mucous membranes moist. Neck: Trachea midline, no thyromegaly or masses palpated, and no cervical lymphadenopathy. Supple, full range of motion without nuchal rigidity, or vertebral point tenderness. No Meningismus. Chest/axilla: Normal chest wall appearance and motion. Nontender with no deformity. No lesions are appreciated. Cardiovascular: Regular rate and rhythm with a normal S1 and S2. No gallops, murmurs, or rubs. Normal PMI, no JVD. No pulse deficits. Respiratory: Lungs have equal breath sounds bilaterally, clear to auscultation and percussion. No rales, rhonchi or wheezes noted. No increased work of breathing, no retractions or nasal flaring. Abdomen/GI: Soft, non-tender, with normal bowel sounds. No distension or tympany. No guarding or rebound. No evidence of tenderness throughout. Back: No spinal tenderness. No costovertebral tenderness. Full range of motion. Neuro: Awake and alert, GCS 15, oriented to person, place, time, and situation. Cranial nerves II-XII grossly intact. Motor strength 5/5 in all extremities. Sensory grossly intact. Cerebellar exam normal. Normal gait. Psych: Awake, alert, with orientation to person, place and time. Behavior, mood, and affect are within normal limits. 07:23 Musculoskeletal/extremity: ROM: intact in all extremities, full active range of motion, full passive range of motion, Circulation is intact in all extremities. Sensation intact. Compartment Syndrome exam of affected extremity: is normal. DVT Exam: pain, swelling, tenderness, erythema, increased warmth, that is moderate, Vital Signs: 07:11 BP 131 / 88; Pulse 84; Resp 16; Temp 98; Pulse Ox 100% ; bp MDM: 07:12 Medical Screening Exam initiated [place] 07:27 Differential diagnosis: arthritis, gout, cellulitis. Data reviewed: vital signs, nurses [place] notes. Consideration of Admission/Observation Escalation of care including admission/observation considered. I considered the following discharge prescriptions or medication management in the emergency department Medications were administered in the Emergency Department. See MAR. Test considered but Not performed: Labs: no labs. Care significantly affected by the following chronic conditions: Diabetes, Hypertension, Obesity. 10/30 07:32 Order name: Wound dressing; Complete Time: 07:44 elsa Administered Medications: 07:44 Drug: Doxycycline PO 200 mg PO once Route: PO; kc6 08:10 Follow up: Response: No adverse reaction kc6 07:44 Drug: Tfuvatoh-Xffislfupv-Jlngofkoj Topical Ointment 1 application Topical once Route: kc6 Topical; Site: wound; 08:09 Follow up: Response: No adverse reaction kc6 07:44 Drug: Ibuprofen PO 600 mg PO once Route: PO; kc6 08:09 Follow up: Response: No adverse reaction kc6 07:44 Drug: LevOfloxacin PO 500 mg PO once Route: PO; kc6 08:09 Follow up: Response: No adverse reaction kc6 Disposition Summary: 10/30/24 07:29 Discharge Ordered Notes: Location: Home elsa Problem: new elsa Symptoms: have improved elsa Condition: Stable elsa Diagnosis - Ingrowing nail elsa Followup: elsa - With: Private Physician - When: 2 - 3 days - Reason: Recheck today's complaints, Re-evaluation by your physician Discharge Instructions: - Discharge Summary Sheet elsa - Ingrown Toenail elsa Forms: - Medication Reconciliation Form elsa - Antibiotic Education elsa - Prescription Opioid Use elsa - Patient Portal Instructions [place] - Leadership Thank You Letter [place] Prescriptions: - [place] 2 % Topical ointment - apply 1 application TOPICAL route 3 times per day; 15 gram; Refills: 0, Product elsa Selection Permitted - diclofenac sodium 50 mg Oral tablet, delayed release (enteric coated) - take 1 tablet ORAL route 3 times per day; 21 tablet; Refills: 0, Product elsa Selection Permitted - Doxycycline Hyclate 100 mg Oral Tablet - take 1 tablet ORAL route every 12 hours; 20 tablet; Refills: 0, Product elsa Selection Permitted - Fluconazole 200 mg Oral tablet - take 1 tablet ORAL route once take 0ne tab weekly as needed; 3 tablet; Refills: elsa 0, Product Selection Permitted - levofloxacin 500 mg Oral tablet - take 1 tablet ORAL route once daily for 7 days; 7 tablet; Refills: 0, Product elsa Selection Permitted Signatures: Jose Matthews MD MD cha Peltier, Brian RN RN Lexy Campa RN RN kc6 Corrections: (The following items were deleted from the chart) 07:44 07:23 Ortho shoe ordered. elsa kc6
--- NOTE | 2024-10-30 07:29 | ER ---
Nurse's Notes [facility] Name: Valarie Michelle Age: 38 yrs Sex: Female : 1985 Arrival Date: 10/30/2024 Time: 06:52 Bed 14 Private MD: Diagnosis: Ingrowing nail Presentation: 10/30 07:11 Chief complaint: Patient states: RECURRENT LEFT GREAT TOE INFECTION. Coronavirus bp screen: At this time, the client does not indicate any symptoms associated with coronavirus-19. Ebola Screen: No symptoms or risks identified at this time. Initial Sepsis Screen: Does the patient meet any 2 criteria? No. Patient's initial sepsis screen is negative. Does the patient have a suspected source of infection? No. Patient's initial sepsis screen is negative. Risk Assessment: Do you want to hurt yourself or someone else? Patient reports no desire to harm self or others. Onset of symptoms is unknown. 07:11 Method Of Arrival: Ambulatory bp 07:11 Acuity: MIRA 5 bp Triage Assessment: 07:12 General: Appears in no apparent distress. Behavior is calm, cooperative, appropriate bp for age. Pain: Complains of pain in left first toe. EENT: No deficits noted. Neuro: No deficits noted. Cardiovascular: No deficits noted. Respiratory: No deficits noted. GI: No signs and/or symptoms were reported involving the gastrointestinal system. : No signs and/or symptoms were reported regarding the genitourinary system. Derm: No deficits noted. Musculoskeletal: No deficits noted. Historical: - Allergies: 07:12 Bactrim; bp 07:12 Ceclor; bp 07:12 PENICILLINS; bp - PMHx: 07:12 diabetes mellitus; gestational diabetes; Hypertensive disorder; bp - Immunization history:: Adult Immunizations up to date. - Infectious Disease History:: Denies. - Social history:: Smoking status: Patient denies any tobacco usage or history of. - Family history:: not pertinent. Screenin:18 [facility] ED Fall Risk Assessment (Adult) History of falling in the last 3 months, kc6 including since admission No falls in past 3 months (0 pts) Confusion or Disorientation No (0 pts) Intoxicated or Sedated No (0 pts) Impaired Gait No (0 pts) Mobility Assist Device Used No (0 pt) Altered Elimination No (0 pt) Score/Fall Risk Level 0 - 2 = Low Risk Oriented to surroundings, Maintained a safe environment. Abuse screen: Denies threats or abuse. Denies injuries from another. Nutritional screening: No deficits noted. Tuberculosis screening: No symptoms or risk factors identified. Assessment: 07:19 General: Appears in no apparent distress. comfortable, well groomed, well developed, kc6 Behavior is calm, cooperative, appropriate for age. Neuro: Level of Consciousness is awake, alert, obeys commands, Oriented to person, place, time, situation, Appropriate for age. Cardiovascular: Capillary refill < 3 seconds. Respiratory: Airway is patent Trachea midline Respiratory effort is even, unlabored, Respiratory pattern is regular, symmetrical. GI: No signs and/or symptoms were reported involving the gastrointestinal system. : No signs and/or symptoms were reported regarding the genitourinary system. EENT: No signs and/or symptoms were reported regarding the EENT system. Derm: Skin is healthy with good turgor, Skin is pink, warm \T\ dry. Musculoskeletal: No signs and/or symptoms reported regarding the musculoskeletal system. Circulation, motion, and sensation intact. Range of motion: intact in all extremities. 08:10 Reassessment: Patient appears in no apparent distress at this time. No changes from kc6 previously documented assessment. Patient and/or family updated on plan of care and expected duration. Pain level reassessed. Patient is alert, oriented x 3, equal unlabored respirations, skin warm/dry/pink. Vital Signs: 07:11 BP 131 / 88; Pulse 84; Resp 16; Temp 98; Pulse Ox 100% ; bp ED Course: 07:01 Patient arrived in ED. gm2 07:10 Fabio Hernandez, RICHARD is Primary Nurse. bp 07:11 Triage completed. bp 07:12 Jose Matthews MD is Attending Physician. elsa 07:12 Arm band placed on. bp 07:18 Patient has correct armband on for positive identification. Bed in low position. Call kc6 light in reach. Side rails up X 1. Pulse ox on. NIBP on. Door closed. Noise minimized. Lights dimmed. Pillow given. 07:18 Patient maintains SpO2 saturation greater than 95% on room air. kc6 08:10 No provider procedures requiring assistance completed. Patient did not have IV access kc6 during this emergency room visit. Administered Medications: 07:44 Drug: Doxycycline PO 200 mg PO once Route: PO; kc6 08:10 Follow up: Response: No adverse reaction kc6 07:44 Drug: Qqtawgzs-Ezfnwysklh-Khjntgety Topical Ointment 1 application Topical once Route: kc6 Topical; Site: wound; 08:09 Follow up: Response: No adverse reaction kc6 07:44 Drug: Ibuprofen PO 600 mg PO once Route: PO; kc6 08:09 Follow up: Response: No adverse reaction kc6 07:44 Drug: LevOfloxacin PO 500 mg PO once Route: PO; kc6 08:09 Follow up: Response: No adverse reaction kc6 Medication: 08:10 VIS not applicable for this client. kc6 Outcome: 07:29 Discharge ordered by . elsa 08:10 Discharged to home ambulatory, kc6 08:10 Condition: good 08:10 Discharge instructions given to patient, Instructed on discharge instructions, follow up and referral plans. medication usage, wound care, Demonstrated understanding of instructions, follow-up care, medications, wound care, Prescriptions given X 5 08:10 Patient left the ED. kc6 Signatures: Jose Matthews MD MD cha Peltier, Brian, RN RN Lexy Campa RN RN [email or web address] Yesenia Sheffield gm2
[2024-10-30] MEDS ORDERED: levoFLOXacin 250 MG TAB ONE (07:37)
[2024-10-30] MEDS ORDERED: DOXYCYCLINE 100 MG CAP PO ONE (07:38)
[2024-10-30] MEDS ORDERED: IBUPROFEN 200 MG TAB PO ONE (07:38)
[2024-10-30 08:15] VITALS: BP 131/88; TEMP 98; O2SAT 100
== END 2024-10-30 08:10 | disposition home or self-care (01) ==
LOC: ER 06:52
DX: L60.0 Ingrowing nail (principal)
CPT/HCPCS: 99283